=== PATIENT | female | born 1960 | race American Indian/Alaskan Native ===

== ENCOUNTER 2016-12-31 22:27 | Inpatient (IN) | payer OTHER ==
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
[2016-12-31] MEDS ORDERED: NACL ONE (23:17)
[2016-12-31] MEDS ORDERED: BENTYL IM ONE (23:18)
[2016-12-31] MEDS ORDERED: NITROSTAT SL PRN (23:18)
[2017-01-01 00:01] LABS: Anion Gap 22 mmol/L; Basophils % (Auto) 0.3 % (0.0-1.8); Blood Urea Nitrogen 14 mg/dL (7-17); Calcium 9.3 mg/dL (8.4-10.2); Carbon Dioxide 20 mmol/L (22-30); Chloride 101.9 mmol/L (98-107); Eosinophils % (Auto) 1.1 % (0.0-4.3); Glucose 126 mg/dL (65-100); Hematocrit 36.7 % (30.3-42.9); Hemoglobin 11.9 gm/dl (10.1-14.3); Mean Corpuscular HGB Conc 32 % (30-34); Mean Corpuscular Hemoglobin 27 pg (28-32); Mean Corpuscular Volume 85 fl (79-97); Platelet Count 206 K/mm3 (140-440); Potassium 3.7 mmol/L (3.6-5.0); Red Blood Count 4.33 M/mm3 (3.65-5.03); Red Cell Distribution Width 16.1 % (13.2-15.2); Sodium 140 mmol/L (137-145); White Blood Count 7.1 K/mm3 (4.5-11.0)
[2017-01-01 00:10] LABS: INR 0.94 (0.87-1.13)
[2017-01-01] MEDS ORDERED: ZOFRAN IV ONE ×2 (00:10→12:00)
[2017-01-01] MEDS ORDERED: BABY ASPIRIN PO ONE (02:45)
--- NOTE | 2017-01-01 03:32 | Cat Scan Report ---
FINAL REPORT EXAM: CT ABDOMEN PELVIS WO CON HISTORY: abd pain COMPARISON: CT of the abdomen pelvis from March 2014. TECHNIQUE: Contiguous axial images were obtained. Additional sagittal and coronal reformatted images were obtained. FINDINGS: Mild linear atelectasis or scarring at the lung bases. Mild enlargement of the liver measuring 24 centimeters. Mild diffuse fatty infiltration of the liver with sparing along the gallbladder fossa. Gallbladder surgically absent. Pancreas and spleen are grossly unremarkable. Mild nodular thickening of adrenal glands. 4 millimeter nonobstructive right renal calculus. No hydronephrosis bilaterally. Prominent anterior right renal cyst measuring 6 centimeters. Aorta and IVC are normal in caliber. No distal ureteral urinary bladder calculi. Uterus and right ovary grossly unremarkable. Small simple appearing cystic structure in the left ovary measuring 2.7 x 1.6 centimeters. No free fluid or lymphadenopathy in the pelvic cavity. 6 millimeter hyperdense nodule the posterior margin left kidney likely reflecting a hyperdense cyst. Prior anterior abdominal wall hernia repair. There are small multifocal umbilical and periumbilical hernias containing fat only. No gross associated inflammatory soft tissue changes. Moderate stool in the right colon. Large and small bowel loops are normal in caliber. The appendix is normal in caliber. Mild degenerative changes of the lumbar spine. Bony pelvis is grossly intact. IMPRESSION: 4 millimeter nonobstructive right renal calculus. No hydronephrosis bilaterally. Large and small bowel loops normal in caliber. The appendix is normal in caliber. No focal inflammatory changes the bowel. Mild enlargement of the liver with fatty infiltration. Simple appearing cystic structure left ovary measuring 2.7 centimeters. Followup pelvic ultrasound in the next 2-3 months suggested to ensure stability.
[2017-01-01] MEDS ORDERED: FLEXERIL PO PRN (05:20)
[2017-01-01] MEDS ORDERED: ULTRAM PO PRN (05:20)
[2017-01-01] MEDS ORDERED: MORPHINE IV PRN (05:22)
[2017-01-01] MEDS ORDERED: SODIUM CHLORIDE FLUSH SYRINGE 10 ML IV PRN (05:22)
--- NOTE | 2017-01-01 05:29 | History and Physical Report ---
History of Present Illness Date of examination: 01/01/17 Date of admission: 01/01/17 03:50 Chief complaint: Chest pain History of present illness: Patient is a 54-year-old female past medical history of diabetes, asthma, hypertension, chronic tachycardia to the hospital complains of progressive SOB in last 24 hours. Patient reports that her shortness of breath started last night. Got worse today. She describes that she has increased cough, which whitish phlegm production. She denies any fevers, high fevers, myalgias or arthralgias. She did not receive the flu vaccination this year. Denies any melena, hematochezia, bright red blood per rectum. Also no syncope. She does not use oxygen at home. His complains of occasional palpitations, and dyspnea which she's had for months now. She had several negative workups including cardiac angiogram done on August 2015. His had a negative chest CTA done for chest pain and tachycardia, on 10/04/2015. Past History Past Medical History: diabetes, hypertension, asthma, other (chronic tachycardia , 6.2 cm right renal cyst) Past Surgical History: cholecystectomy, PTCA, Other (cardiac angiogram) Social history: single, full code. denies: smoking, alcohol abuse, prescription drug abuse, IV drug use Review of System: Constitutional: no fever, no chills, no weight loss Ears, eyes, nose, mouth and throat: no nasal congestion, no nasal discharge, no sinus pressure, no vision change, no red eye. Neck: No neck pain or rigidity. Cardiovascular: No chest pain, no orthopnea, no palpitations, no leg swelling Respiratory: No shortness of breath, no cough, no congestion, no wheezing Gastrointestinal: no abdominal pain, no nausea, no vomiting Genitourinary : no dysuria, no hematuria Musculoskeletal: no joint swelling or muscle ache Integumentary: no rash, no pruritis Neurological: no parathesias, no numbness, no tingling Endocrine: no cold or heat intolerance, no polyuria or polydipsia Hematologic/Lymphatic: no easy bruising, no easy bleeding, no gland swelling Allergic/Immunologic: no urticaria, no angioedema. Medications and Allergies Allergies Allergy/AdvReac Type Severity Reaction Status Date / Time acetaminophen [From Percocet] Allergy Unknown Verified 03/10/14 09:20 morphine Allergy Unknown Verified 05/19/16 12:06 oxycodone HCl [From Percocet] Allergy Unknown Verified 03/10/14 09:20 Home Medications Medication Instructions Recorded Confirmed Last Taken Type Clonidine HCl [Catapres] 0.3 mg PO BID 08/26/15 05/19/16 05/19/16 History amLODIPine [Norvasc] 10 mg PO DAILY 08/26/15 05/19/16 05/19/16 History metFORMIN [Glucophage] 1,000 mg PO BID 08/26/15 05/19/16 05/19/16 History Albuterol Sulfate [Ventolin HFA] 2 puff IH Q4H PRN #1 pump 11/12/15 05/19/16 Rx Cyclobenzaprine HCl [Flexeril 5 MG 5 mg PO Q8HR PRN #10 tab 05/19/16 Unknown Rx TAB] traMADol [Ultram] 50 mg PO Q6HR PRN #20 tablet 07/22/16 Unknown Rx Active Meds: Active Medications Amlodipine Besylate (Norvasc) 10 mg PO DAILY JOSE CRUZ Aspirin (Ecotrin) 325 mg PO QDAY JOSE CRUZ Atorvastatin Calcium (Lipitor) 40 mg PO QHS JOSE CRUZ Famotidine (Pepcid) 20 mg PO BID JOSE CRUZ Insulin Human Regular (Novolin R) 0 units SUB-Q ACHS JOSE CRUZ PRN Reason: Protocol Metformin HCl (Glucophage) 1,000 mg PO BID JOSE CRUZ Miscellaneous Medication (Clonidine Hcl [Catapres]) 0.3 mg PO BID JOSE CRUZ Miscellaneous Medication (Cyclobenzaprine Hcl [Flexeril 5 Mg Tab]) 5 mg PO Q8HR PRN PRN Reason: Pain Morphine Sulfate (Morphine) 2 mg IV Q5MIN PRN PRN Reason: Chest Pain Nitroglycerin (Nitrostat) 0.4 mg SL .Q5MIN PRN PRN Reason: Chest Pain Sodium Chloride (Sodium Chloride Flush Syringe 10 Ml) 10 ml IV PRN PRN PRN Reason: LINE FLUSH Tramadol HCl (Ultram) 50 mg PO Q6HR PRN PRN Reason: Pain Exam - Physical Exam Narrative exam: GENERAL: This is well-developed well-nourished lying on bed appeared to be in no discomfort. HEENT: Normocephalic. Atraumatic. Extraocular motions are intact. No conjunctival congestion or icterus. Patient has moist mucous membranes. External auditory canal and nares patent bilaterally. NECK: Supple. Trachea midline. No JVD, thyromagaly or lymphadenopathy. CHEST/LUNGS: Clear to auscultated bilaterally. There is no respiratory distress noted, breathing nonlabored. No wheezes crackles or rhonchi. HEART/CARDIOVASCULAR: Regular in rate and rhythm. PMI at the apex. There is no gallop rub or murmur. ABDOMEN: Abdomen is soft, nontender. Patient has normal bowel sounds. There is no abdominal distention. No organomagaly or rigidity. SKIN: There is no rash, no erythrema. There is no diaphoresis. Warm and dry. NEUROLOGY: The patient is awake, alert, and oriented. The patient is cooperative. The patient has normal speech. No focal motor deficit. MUSCULOSKELETAL: No joint effusion or tenderness. Muscle strength equal bilaterally. No muscle wasting. EXTRIMITY: No edema, cyanosis or clubbing. PSYCH: No depression or anxiety noted. Cooperative. - Constitutional Vitals: Temp Pulse Resp BP Pulse Ox 98.5 F 76 21 156/81 95 01/01/17 05:01 01/01/17 05:01 01/01/17 05:01 01/01/17 05:01 01/01/17 05:01 Results - Labs CBC & Chem 7: 12/31/16 23:30 12/31/16 23:30 Assessment and Plan Acute chest pain Acute abdominal pain likely due to nonobstructing nephrolithiasis Hypertension, benign essential Diabetes mellitus type 2 Asthma not in exacerbation - will admit to telemetry bed - monitor with serial CE and EKG - will place on Aspirin, statin - as needed SL NTG and iv morphin for pain - Monitor BP, add betablocker and ACEI - order 2D echo and consult cardiology - ADA diet now, sliding scale of insulin - As needed nebulizer breathing treatment - provide DVT Px with lovenox It took me about 43 minutes for initial care of this patient including history and physical, reviewing initial lab results and ER documents, placing admission orders, bedside counseling and coordination of care.
[2017-01-01 07:36] LABS: Creatine Kinase MB 1.7 ng/mL (0.0-4.0)
[2017-01-01 07:39] LABS: Creatine Kinase 120 units/L (30-135)
--- NOTE | 2017-01-01 08:08 | Admit Criteria Form ---
Admission Criteria Documentation: CARDIOLOGY GRG Clinical Indications for Admission to Inpatient Care ( Place 'X' for any and all applicable criteria): Hospital admission is needed for appropriate care of the patient because of ANY ONE of the following (1): [ ] I. Hemodynamic instability as indicated by ALL of the following (1)(2)(3) (4)(5) [ ]a) Vital signs or other findings not as expected for chronic patient condition or baseline [ ]b) Instability indicated by ANY ONE of the following: [ ]i) Hypotension [ ]ii) Symptomatic Tachycardia unresponsive to treatment ( e.g., analgesia, fluids, sedation as indicated) [ ]iii) Inadequate perfusion indicated by ANY ONE of the following: [ ] 1) Lactic acidosis (> 2 mmol/L) [ ] 2) New abnormal capillary refill (> 3 seconds) [ ] 3) Reduced urine output [ ] 4) New altered mental status [ ]iv) Orthostatic vital sign changes unresponsive to treatment (e.g., fluids) [ ]v) IV inotropic or vasopressor medication required to maintain adequate blood pressure or perfusion [ ] II. Severe heart failure as indicated by ANY ONE of the following(17)(18) [ ]a) Respiratory distress [ ]b) Hypotension [ ]c) Anasarca (refractory to outpatient therapy) [ ]d) Cardiac arrhythmias of immediate concern [ ]e) Myocardial ischemia [ ] III. Cardiac arrhythmias or findings of immediate concern indicated by ANY ONE of the following (19)(20): [ ] a) Heart rhythms that are inherently dangerous or unstable indicated by ANY ONE of the following (21)(22)(23): [ ] i) Resuscitated ventricular fibrillation or cardiac arrest [ ] ii) Ventricular escape rhythm [ ] iii) Sustained ventricular tachycardia (30 seconds or more of ventricular rhythm at greater than 100 beats per minute) [ ] iv) Nonsustained ventricular tachycardia and ANY ONE of the following: [ ] 1) Suspected cardiac ischemia as cause or consequence of ventricular tachycardia [ ] 2) In setting of acute myocarditis [ ] b) Unstable cardiac conduction defects indicated by ANY ONE of the following(23)(24)(25) [ ] i) Type II second-degree atrioventricular block [ ]ii) Third-degree atrioventricular block [ ]iii) New-onset left bundle branch block with suspected myocardial ischemia [ ]c) Any heart rhythm and ANY ONE of the following (21)(22)(26)(27) (28) [ ] i) Continuous long-term ECG monitoring needed (e.g., initiation of drug requiring monitoring for more than 24 hours) [ ] ii) Patient has automatic implanted cardioverter defibrillator that is repeatedly firing, malfunctioning, or in need of immediate adjustment of settings beyond the scope of ambulatory or observation care [ ]d) Heart rhythms of concern due to ANY ONE of the following: [ ] i) Hypotension [ ] ii) Respiratory distress [ ] iii) Association with other significant symptoms (e.g., bradycardia with syncope or ongoing dizziness, supraventricular tachycardia with chest pain (14)(15)(17) [ ] IV. Monitoring for cardiac contusion beyond the scope of observation care needed [A](30)(31)(32) [ ] V. Surgical or device complication (e.g., valve replacement complication , pacemaker dysfunction) (35)(41)(44)(45)(46) [ ] . Inpatient palliative care needed. [B](49) Also use Inpatient Palliative Care Criteria [ ] VII. Nonbacterial thrombotic (marantic) endocarditis (36)(43)(47)(48) [X] VIII. Cardiology condition, symptom, or finding for which emergency and observation care has failed or are not considered appropriate. [ ] IX. Acute valvular disease requiring inpatient as indicated by ANY ONE of the following (41) [ ]a) Acute valvular regurgitation (42) [ ]b) Noninfectious valvulitis (43) [ ]c) Obstructive valve thrombosis [ ]d) Paravalvular leak [ ]e) Other significant valvular disorder remaining after emergency or observation level of care (as appropriate) [ ]X. Pericardial disease requiring inpatient treatment as indicated by ANY ONE of the following (33)(34)(35)(36)(37) [ ]a) Suspected tamponade (38)(39)(40) [ ]b) Hemopericardium [ ]c) Other significant pericardial disorder remaining after emergency or observation level of care (as appropriate) [ ] XI. Cardiac ischemia beyond scope of emergency and observation care. [ ] XII. Hypertension requiring inpatient treatment as indicated by ANY ONE of the following (6)(7)(8) [ ]a) SBP greater than 220 mm Hg or DBP greater than 120 mmHg despite treatment [ ]b) SBP greater than 140 mm Hg or DBP greater than 100 mm Hg with evidence of acute end organ damage as indicated by ANY ONE of the following [ ] i) Altered mental status [ ] ii) Acute renal failure as indicated by new onset of ANY ONE of the following (9)(10)(11)(12)(13) [ ]1) 3-fold rise in serum creatinine from baseline [ ]2) Serum creatinine greater than 4 mg/dL ( 354 micromoles/L) with acute rise greater than 0.5 mg/dL (44.2 micromoles/L) [ ]3) Reduction of more than 75% in estimated glomerular filtration rate from baseline [ ]4) Estimated glomerular filtration rate less than 35 mL/min/1.73m2 (0.59 mL/sec/1.73m2) in child up to 18 years of age [ ]5) Cessation of urine output indicated by ALL of the following [ ]A. Adequate volume status [ ]B. Inadequate urine output as indicated by ANY ONE of the following [ ]a. Urine output less than 0.3 mL/kg/hr for 24 hours [ ]b. Anuria (urine output less than 0.1 mL/kg/hr) for 12 hours [ ] iii) Aortic dissection [ ] iv) Myocardial Ischemia [ ] v) Left ventricular heart failure [ ]vi) Retinal Hemorrhage [ ]vii) Other significant finding [ ]c) Hypertension in child requiring inpatient treatment as indicated by ALL of the following(14)(15)(16) [ ] i) Outpatient treatment not effective, not available, or not appropriate [ ]ii) SBP or DBP greater than 95th percentile for age [ ]iii) Evidence of acute end organ damage as indicated by ANY ONE of the following [ ]1) Altered mental status [ ]2) Acute renal failure as indicated by new onset of ANY ONE of the following(9)(10)(11)(12)(13) [ ]A. 3-fold rise in serum creatinine from baseline [ ]B. Serum creatinine greater than 4 mg/dL (354 micromoles/L) with acute rise greater than 0.5 mg/dL (44.2 micromoles/L) [ ]C. Reduction of more than 75% in estimated glomerular filtration rate from baseline [ ]D. Estimated glomerular filtration rate less than 35 mL/min/1.73m2 (0.59 mL/sec/1.73m2) in child up to 18 years of age [ ]E. Cessation of urine output indicated by ALL of the following [ ]a. Adequate volume status [ ]b. Inadequate urine output as indicated by ANY ONE of the following [ ]i) Urine output less than 0.3 mL/kg/hr for 24 hours [ ]ii) Anuria ( urine output less than 0.1 mL/kg/hr) for 12 hours [ ]3) Severe headache [ ]4) Visual disturbance [ ]5) Retinal hemorrhage [ ]6) Other significant finding [ ]XIII. Complications of transplanted heart indicated by ANY ONE of the following(61): [ ]a) Acute graft rejection requiring inpatient management (eg, intravenous immunosuppression)(62)(63) [ ]b) Acute graft heart failure indicated by ANY ONE of the following(64): [ ]i) Hemodynamic instability [ ]ii) Cardiac arrhythmias of immediate concern [ ]iii) Pulmonary edema that is very severe (eg, mechanical ventilation needed, imminent or likely, need for 100% oxygen to keep oxygen saturation above 90%) [ ]iv) Pulmonary edema that is persistent as indicated by ALL of the following: [ ]1) New need for oxygen therapy to keep oxygen saturation above 90% (or increased FiO2 need from baseline) [ ]2) Has not improved sufficiently with emergency department or observation care IV diuretics or other heart failure treatments[E] [ ]v) Altered mental status that is severe or persistent [ ]vi) Increased creatinine (new on laboratory test) with reduction of more than 50% in estimated glomerular filtration rate from baseline [ ]vii) Progressively (ongoing) rising creatinine (known from past laboratory test) with reduction of more than 25% in estimated glomerular filtration rate from baseline [ ]viii) Acute renal failure [ ]ix) Acute peripheral ischemia (eg, examination shows pulseless, cool, mottled, or cyanotic extremity) [ ]x) Pulmonary artery catheter monitoring needed [ ]xi) Other sign or symptom of heart failure requiring inpatient treatment (ie, too severe or not responsive to outpatient and observation care treatment) [ ]c) Infection requiring inpatient management (eg, Hemodynamic instability, need for intravenous antimicrobial treatment)(66)(67)(68)(69)(70) [ ]d) Cardiac allograft vasculopathy requiring inpatient management ( eg evidence of cardiac ischemia)(71) [ ]e) Other complication of transplanted heart (eg, stroke, severe pulmonary hypertension, severe valvular dysfunction) requiring inpatient management(72) The original [facility] [employer] content created by [facility] has been revised. The portions of the content which have been revised are identified through the use of italic text or in bold, and [facility] has neither reviewed nor approved the modified material. All other unmodified content is copyright [facility] [employer]. Please see references footnoted in the original [facility] [employer] edition 2016 Admission Criteria Met: Yes
--- NOTE | 2017-01-01 08:21 | Progress Note ---
Assessment and Plan Assessment and plan: Patient is a 54-year-old female past medical history of diabetes, asthma, hypertension, chronic tachycardia to the hospital complains of progressive SOB Acute chest pain Kidney stone is nonobstructing nephrolithiasis, and therefore not the cause of her pain Hypertension, benign essential Diabetes mellitus type 2 Asthma not in exacerbation - will admit to telemetry bed - monitor with serial CE and EKG - will place on Aspirin, statin - as needed SL NTG and iv morphin for pain - Monitor BP, add betablocker and ACEI - order 2D echo and consult cardiology - ADA diet now, sliding scale of insulin - As needed nebulizer breathing treatment - provide DVT Px with [facility] Hospitalist Physical - Constitutional Vitals: Temp Pulse Resp BP Pulse Ox 98.5 F 90 18 156/81 98 01/01/17 05:01 01/01/17 06:01 01/01/17 06:58 01/01/17 05:01 01/01/17 06:01 Results - Labs CBC & Chem 7: 12/31/16 23:30 12/31/16 23:30 Labs: Laboratory Last Values WBC 7.1 K/mm3 (4.5-11.0) 12/31/16 23:30 RBC 4.33 M/mm3 (3.65-5.03) 12/31/16 23:30 Hgb 11.9 gm/dl (10.1-14.3) 12/31/16 23:30 Hct 36.7 % (30.3-42.9) 12/31/16 23:30 MCV 85 fl (79-97) 12/31/16 23:30 MCH 27 pg (28-32) L 12/31/16 23:30 MCHC 32 % (30-34) 12/31/16 23:30 RDW 16.1 % (13.2-15.2) H 12/31/16 23:30 Plt Count 206 K/mm3 (140-440) 12/31/16 23:30 Lymph % (Auto) 25.7 % (13.4-35.0) 12/31/16 23:30 [place] % (Auto) 5.7 % (0.0-7.3) 12/31/16 23:30 Eos % (Auto) 1.1 % (0.0-4.3) 12/31/16 23:30 Baso % (Auto) 0.3 % (0.0-1.8) 12/31/16 23:30 Lymph # 1.8 K/mm3 (1.2-5.4) 12/31/16 23:30 [place] # 0.4 K/mm3 (0.0-0.8) 12/31/16 23:30 Eos # 0.1 K/mm3 (0.0-0.4) 12/31/16 23:30 Baso # 0.0 K/mm3 (0.0-0.1) 12/31/16 23:30 Seg Neutrophils % 67.2 % (40.0-70.0) 12/31/16 23:30 Seg Neutrophils # 4.8 K/mm3 (1.8-7.7) 12/31/16 23:30 PT 12.5 Sec. (12.2-14.9) 12/31/16 23:30 INR 0.94 (0.87-1.13) 12/31/16 23:30 D-Dimer 152.15 ng/mlDDU (0-234) 12/31/16 23:30 Sodium 140 mmol/L (137-145) 12/31/16 23:30 Potassium 3.7 mmol/L (3.6-5.0) 12/31/16 23:30 Chloride 101.9 mmol/L (98-107) 12/31/16 23:30 Carbon Dioxide 20 mmol/L (22-30) L 12/31/16 23:30 Anion Gap 22 mmol/L 12/31/16 23:30 BUN 14 mg/dL (7-17) 12/31/16 23:30 Creatinine 0.7 mg/dL (0.7-1.2) 12/31/16 23:30 Estimated GFR > 60 ml/min 12/31/16 23:30 BUN/Creatinine Ratio 20.00 % 12/31/16 23:30 Glucose 126 mg/dL (65-100) H 12/31/16 23:30 Calcium 9.3 mg/dL (8.4-10.2) 12/31/16 23:30 Total Creatine Kinase 120 units/L (30-135) 01/01/17 06:49 CK-MB (CK-2) 1.7 ng/mL (0.0-4.0) 01/01/17 06:49 CK-MB (CK-2) Rel Index 1.4 (0-4) 01/01/17 06:49 Troponin T < 0.010 ng/mL (0.00-0.029) 01/01/17 06:49 NT-Pro-B Natriuret Pep 87.38 pg/mL (0-900) 12/31/16 23:30
--- NOTE | 2017-01-01 08:21 | XRay Report ---
CHEST 2 VIEWS INDICATION: Chest since Wednesday. Dyspnea. History of CHF. COMPARISON: 07/22/2016 FINDINGS: Frontal and lateral chest radiographs demonstrate stable cardiomediastinal silhouette, clear lungs, right mid lung shrapnels, EKG leads and multilevel thoracic spondylosis. CONCLUSION: No acute chest process, stable. Thank you for the opportunity to participate in this patient's care.
--- NOTE | 2017-01-01 09:49 | Discharge Summary ---
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 ACS was ruled out by negative troponins, transfer have a nuclear stress test that was negative. There was concern of kidney stone, but after reviewing her imaging was a nonobstructive small nephrolithiasis and different not related to her pain. Chest pain was most likely due to costochondritis, she was advised to take daily aspirin and NSAID as needed. Discharge diagnoses Chest pain due to costochondritis Hypertension Type 2 diabetes Chronic asthma Disposition: DISCHARGED TO HOME OR SELFCARE Time spent for discharge: 35 minutes Core Measure Documentation - Palliative Care Palliative Care/ Comfort Measures: Not Applicable - Core Measures Any of the following diagnoses?: none Exam - Constitutional Vitals: Temp Pulse Resp BP Pulse Ox 98.3 F 81 18 180/91 98 01/01/17 08:00 01/01/17 08:00 01/01/17 08:00 01/01/17 08:00 01/01/17 08:00 General appearance: Present: no acute distress, well-nourished - EENT Eyes: Present: PERRL ENT: hearing intact, clear oral mucosa - Neck Neck: Present: supple, normal ROM - Respiratory Respiratory effort: normal Respiratory: bilateral: CTA - Cardiovascular Heart Sounds: Present: S1 & S2. Absent: rub, click - Extremities Extremities: pulses symmetrical, No edema Peripheral Pulses: within normal limits - Abdominal General gastrointestinal: Present: soft, non-tender, non-distended, normal bowel sounds Female genitourinary: Present: normal - Integumentary Integumentary: Present: clear, warm, dry - Musculoskeletal Musculoskeletal: gait normal, strength equal bilaterally - Psychiatric Psychiatric: appropriate mood/affect, intact judgment & insight - Neurologic Neurologic: CNII-XII intact, moves all extremities Plan Follow up with: [facility] [Provider Group] - 7 Days PRIMARY CARE, [Primary Care Provider] - 3-5 Days Prescriptions: Aspirin EC [Aspirin Enteric Coated TAB] 81 mg PO QDAY #30 tablet.
[2017-01-01] MEDS ORDERED: PEPCID PO SCH (10:00)
[2017-01-01] MEDS ORDERED: CATAPRES PO SCH ×2 (10:00)
[2017-01-01] MEDS ORDERED: GLUCOPHAGE PO SCH (10:00)
[2017-01-01] MEDS ORDERED: NORVASC PO SCH (10:00)
[2017-01-01] MEDS: DUONEB 0.5 MG-3 MG/3 ML SOLN IH SCH ×2 (10:35→15:30)
[2017-01-01] MEDS ORDERED: LEXISCAN IV ONE ×2 (11:00→11:01)
[2017-01-01] MEDS ORDERED: ZOFRAN ONE (11:34)
[2017-01-01 14:18] LABS: Creatine Kinase MB 1.7 ng/mL (0.0-4.0)
[2017-01-01 14:20] LABS: Creatine Kinase 131 units/L (30-135)
[2017-01-01 15:55] VITALS: BP 148/84
--- NOTE | 2017-01-02 01:22 | Treadmill Report ---
STRESS TEST INDICATION: Chest pain. ORDERING PHYSICIAN: . FINDINGS: There is no scintigraphic evidence of myocardial ischemia. The left ventricle is normal in size and systolic function with a left ventricular ejection fraction measured at 69%. Normal wall motion and wall thickening is noted on gated imaging. CONCLUSION: Normal perfusion scan. JOB# [id number] FRANKIE/MOSES
[2017-01-02] MEDS ORDERED: ECOTRIN PO SCH (10:00)
== END 2017-01-01 16:29 | disposition home or self-care (01) | DRG 206 ==
LOC: ED 22:27 → 4A 01-01 03:50
PROVIDERS: ADMIT Internal Medicine; ATTEND Internal Medicine
DX: M94.0 Chondrocostal junction syndrome [Tietze] (principal); E11.9 Type 2 diabetes mellitus without complications; Z88.6 Allergy status to analgesic agent; Z88.5 Allergy status to narcotic agent; I11.0 Hypertensive heart disease with heart failure; I50.9 Heart failure, unspecified; K21.9 Gastro-esophageal reflux disease without esophagitis; J44.9 Chronic obstructive pulmonary disease, unspecified; Z90.49 Acquired absence of other specified parts of digestive tract; Z98.61 Coronary angioplasty status; N20.0 Calculus of kidney
CPT/HCPCS: 36415; 71020; 74176; 78452; 80048; 82550; 82553; 82962; 83880; 84484; 85025; 85379; 85610; 93005; 93010; 93017; 93306; 96372; 96374; A9502; J0500; J2405; J2785

== ENCOUNTER 2017-03-14 22:33 | Emergency (ER) | payer OTHER ==
[2017-03-15 00:11] LABS: Basophils % (Auto) 0.5 % (0.0-1.8); Eosinophils % (Auto) 1.6 % (0.0-4.3); Mean Corpuscular HGB Conc 32 % (30-34); Mean Corpuscular Hemoglobin 27 pg (28-32); Mean Corpuscular Volume 85 fl (79-97); Platelet Count 262 K/mm3 (140-440); Red Blood Count 4.81 M/mm3 (3.65-5.03); Red Cell Distribution Width 15.7 % (13.2-15.2); White Blood Count 6.4 K/mm3 (4.5-11.0)
[2017-03-15 00:24] LABS: Anion Gap 18 mmol/L; BUN/Creatinine Ratio 21.25; Blood Urea Nitrogen 17 mg/dL (7-17); Calcium 9.8 mg/dL (8.4-10.2); Carbon Dioxide 27 mmol/L (22-30); Chloride 97.4 mmol/L (98-107); Glucose 117 mg/dL (65-100); Potassium 3.2 mmol/L (3.6-5.0); Sodium 139 mmol/L (137-145)
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
--- NOTE | 2017-03-15 10:20 | Emergency Department Report ---
ED Chest Pain HPI - General Chief Complaint: Chest Pain Stated Complaint: CHEST PAIN Time Seen by Provider: 03/15/17 10:08 Source: patient Mode of arrival: Ambulatory Limitations: No Limitations - History of Present Illness Initial Comments: 56-year-old female with known history of CHF here with complaint of worsening chest pain and shortness of breath. Patient states that she's having increasing dyspnea with exertion. Her chest pain is in the center of her chest feels heavy and she gets short of breath with it. It's worse with exertion. She has difficult time laying down. No fevers chills nausea vomiting. MD Complaint: chest pain -: Gradual Onset: during rest, during exertion Pain Location: substernal Pain Radiation: neck Severity: moderate Quality: tightness Improves With: rest Worsens With: exertion re: dyspnea. denies: nausea, vomting - Related Data Home Medications Medication Instructions Recorded Confirmed Last Taken Clonidine HCl [Catapres] 0.3 mg PO BID 08/26/15 05/19/16 05/19/16 amLODIPine [Norvasc] 10 mg PO DAILY 08/26/15 05/19/16 05/19/16 metFORMIN [Glucophage] 1,000 mg PO BID 08/26/15 05/19/16 05/19/16 Previous Rx's Medication Instructions Recorded Last Taken Type Albuterol Sulfate [Ventolin HFA] 2 puff IH Q4H PRN #1 pump 11/12/15 05/19/16 Rx Cyclobenzaprine HCl [Flexeril 5 MG 5 mg PO Q8HR PRN #10 tab 05/19/16 Unknown Rx TAB] traMADol [Ultram 50 MG tab] 50 mg PO Q6HR PRN #20 tablet 07/22/16 Unknown Rx Aspirin EC [Aspirin Enteric Coated 81 mg PO QDAY #30 tablet. 01/01/17 Unknown Rx TAB] Allergies Allergy/AdvReac Type Severity Reaction Status Date / Time acetaminophen [From Percocet] Allergy Unknown Verified 03/10/14 09:20 morphine Allergy Unknown Verified 05/19/16 12:06 oxycodone HCl [From Percocet] Allergy Unknown Verified 03/10/14 09:20 Heart Score - HEART Score History: Moderately suspicious EKG: Non-specific Age: 45-65 Risk factors: 1-2 risk factors Troponin: < normal limit HEART Score: 4 ED Review of Systems ROS: Stated complaint: CHEST PAIN Other details as noted in HPI Comment: All other systems reviewed and negative Constitutional: denies: chills, fever Eyes: denies: eye pain, eye discharge, vision change ENT: denies: ear pain, throat pain Respiratory: orthopnea, shortness of breath, SOB with exertion, SOB at rest. denies: wheezing Cardiovascular: denies: chest pain, palpitations Endocrine: no symptoms reported Gastrointestinal: denies: abdominal pain, nausea, diarrhea Genitourinary: denies: urgency, dysuria, discharge Musculoskeletal: denies: back pain, joint swelling, arthralgia Skin: denies: rash, lesions Neurological: denies: headache, weakness, paresthesias Psychiatric: denies: anxiety, depression Hematological/Lymphatic: denies: easy bleeding, easy bruising ED Past Medical Hx - Past Medical History Previous Medical History?: Yes Hx Hypertension: Yes Hx Heart Attack/AMI: No Hx Congestive Heart Failure: Yes Hx Diabetes: Yes Hx GERD: Yes Hx Liver Disease: No Hx Renal Disease: No Hx Seizures: No Hx Asthma: Yes Hx COPD: Yes (chronic bronchitis) Additional medical history: BLOOD TRANSFUSION. enlarged heart. "spot on right kidney" - Surgical History Past Surgical History?: Yes Hx Cholecystectomy: Yes Additional Surgical History: C section x 3, hernia repair - Family History Family history: no significant - Social History Smoking Status: Never Smoker Substance Use Type: None - Medications Home Medications: Home Medications Medication Instructions Recorded Confirmed Last Taken Type Clonidine HCl [Catapres] 0.3 mg PO BID 08/26/15 05/19/16 05/19/16 History amLODIPine [Norvasc] 10 mg PO DAILY 08/26/15 05/19/16 05/19/16 History metFORMIN [Glucophage] 1,000 mg PO BID 08/26/15 05/19/16 05/19/16 History Albuterol Sulfate [Ventolin HFA] 2 puff IH Q4H PRN #1 pump 11/12/15 05/19/16 Rx Cyclobenzaprine HCl [Flexeril 5 MG 5 mg PO Q8HR PRN #10 tab 05/19/16 Unknown Rx TAB] traMADol [Ultram 50 MG tab] 50 mg PO Q6HR PRN #20 tablet 07/22/16 Unknown Rx Aspirin EC [Aspirin Enteric Coated 81 mg PO QDAY #30 tablet. 01/01/17 Unknown Rx TAB] ED Physical Exam - General Limitations: No Limitations General appearance: alert, in no apparent distress, obese - Head Head exam: Present: atraumatic, normocephalic - Eye Eye exam: Present: normal appearance. Absent: scleral icterus, conjunctival injection - ENT ENT exam: Present: mucous membranes moist - Neck Neck exam: Present: normal inspection - Respiratory Respiratory exam: Present: normal lung sounds bilaterally. Absent: respiratory distress - Cardiovascular Cardiovascular Exam: Present: regular rate, normal rhythm. Absent: systolic murmur, diastolic murmur, rubs, gallop - GI/Abdominal GI/Abdominal exam: Present: soft, normal bowel sounds - Extremities Exam Extremities exam: Present: normal inspection - Back Exam Back exam: Present: normal inspection - Neurological Exam Neurological exam: Present: alert, oriented X3 - Psychiatric Psychiatric exam: Present: normal affect, normal mood - Skin Skin exam: Present: warm, dry, intact, normal color. Absent: rash ED Course Vital Signs 03/14/17 23:14 Temperature 98.6 F Pulse Rate 101 H Blood Pressure 153/94 O2 Sat by Pulse 99 Oximetry BRENNAN score - Brennan Score Age > 65: (0) No Aspirin use within the Past 7 Days: (0) No 3 or more CAD Risk Factors: (1) Yes (was only one of them might be reviewed and do another one but) 2 or more Angina events in past 24 hrs: (0) No (at the site psych who psych) Known CAD with more than 50% Stenosis: (0) No Elevated Cardiac Markers: (0) No ST Deviation Greater than 0.5mm: (0) No BRENNAN Score: 1 ED Medical Decision Making - Lab Data Result diagrams: 03/14/17 23:45 03/14/17 23:45 Laboratory Results - last 24 hr 03/14/17 03/14/17 03/14/17 23:45 23:45 23:45 WBC 6.4 RBC 4.81 Hgb 13.0 Hct 41.0 MCV 85 MCH 27 L MCHC 32 RDW 15.7 H Plt Count 262 Lymph % (Auto) 31.3 [place] % (Auto) 6.8 Eos % (Auto) 1.6 Baso % (Auto) 0.5 Lymph # 2.0 [place] # 0.4 Eos # 0.1 Baso # 0.0 Seg Neutrophils % 59.8 Seg Neutrophils # 3.8 Sodium 139 Potassium 3.2 L Chloride 97.4 L Carbon Dioxide 27 Anion Gap 18 BUN 17 Creatinine 0.8 Estimated GFR > 60 BUN/Creatinine Ratio 21.25 Glucose 117 H Calcium 9.8 Troponin T < 0.010 NT-Pro-B Natriuret Pep 38.13 Urine HCG, Qual 03/14/17 03/15/17 03/15/17 Unknown 02:06 05:51 WBC RBC Hgb Hct MCV MCH MCHC RDW Plt Count Lymph % (Auto) [place] % (Auto) Eos % (Auto) Baso % (Auto) Lymph # [place] # Eos # Baso # Seg Neutrophils % Seg Neutrophils # Sodium Potassium Chloride Carbon Dioxide Anion Gap BUN Creatinine Estimated GFR BUN/Creatinine Ratio Glucose Calcium Troponin T < 0.010 < 0.010 NT-Pro-B Natriuret Pep Urine HCG, Qual Negative - EKG Data 03/15/17 10:18 Normal sinus rhythm rate of 90 normal axis normal intervals T-wave inversion in lead 3 and V3 V4 t wave flattening - Medical Decision Making 56-year-old female here with exertional chest pain. States she has a known history of CHF. She describes orthopnea on clinical history. Her clinical exam physical with mild peripheral edema but clear lungs. EKG is nonischemic and nonspecific. BNP is low however she is obese at this may be falsely low. I do not feel she is clinically volume overloaded. Troponin negative. Patient had a normal exercise perfusion scan in December 2016. These findings despite the fact that she is moderate risk of heart scores do not feel she needs to be readmitted for further cardiac evaluation. Plan discharge patient home. Portions of this chart were dictated with dictation software. There may be dictation errors contained within this note. Critical care attestation.: If time is entered above; I have spent that time in minutes in the direct care of this critically ill patient, excluding procedure time. ED Disposition Clinical Impression: Chest pain Disposition: -01 TO HOME OR SELFCARE Is pt being admited?: No Condition: Stable Instructions: Chest Pain (ED) Referrals: PRIMARY CARE, [Primary Care Provider] - 3-5 Days
[2017-03-15] MEDS ORDERED: ASPIRIN PO ONE (11:10)
[2017-03-15] MEDS ORDERED: ZOFRAN ODT ONE (11:11)
[2017-03-15] MEDS ORDERED: ZOFRAN ODT PO ONE (11:23)
[2017-03-15 11:47] VITALS: BP 135/86
== END 2017-03-15 11:40 | disposition home or self-care (01) ==
LOC: ED 22:33
DX: R07.9 Chest pain, unspecified (principal); R06.02 Shortness of breath; I11.0 Hypertensive heart disease with heart failure; I50.9 Heart failure, unspecified; E11.9 Type 2 diabetes mellitus without complications; K21.9 Gastro-esophageal reflux disease without esophagitis; J44.9 Chronic obstructive pulmonary disease, unspecified; Z88.6 Allergy status to analgesic agent; Z88.8 Allergy status to other drugs, medicaments and biological substances; Z79.82 Long term (current) use of aspirin
CPT/HCPCS: 36415; 71020; 80048; 81025; 83880; 84484; 85025; 93005; 93010; 99285; Q0162

== ENCOUNTER 2017-05-07 14:57 | Emergency (ER) | payer SELFPAY ==
[2017-05-07 16:10] LABS: Basophils % (Auto) 0.4 % (0.0-1.8); Eosinophils % (Auto) 1.7 % (0.0-4.3); Hematocrit 38.6 % (30.3-42.9); Hemoglobin 12.9 gm/dl (10.1-14.3); Mean Corpuscular HGB Conc 33 % (30-34); Mean Corpuscular Hemoglobin 28 pg (28-32); Mean Corpuscular Volume 85 fl (79-97); Platelet Count 205 K/mm3 (140-440); Red Blood Count 4.55 M/mm3 (3.65-5.03); Red Cell Distribution Width 15.7 % (13.2-15.2); White Blood Count 5.6 K/mm3 (4.5-11.0)
--- NOTE | 2017-05-07 16:15 | XRay Report ---
Single view chest: Compared to 03/14/17. History: Chest pain. Findings: Normal cardiomediastinal silhouette. Trachea is midline. No consolidation, pneumothorax or pleural effusion. No significant interval change. Impression: No acute cardiopulmonary findings.
[2017-05-07 16:18] LABS: Anion Gap 19 mmol/L; BUN/Creatinine Ratio 16; Blood Urea Nitrogen 16 mg/dL (7-17); Calcium 9.5 mg/dL (8.4-10.2); Carbon Dioxide 25 mmol/L (22-30); Chloride 99.5 mmol/L (98-107); Glucose 101 mg/dL (65-100); Potassium 3.4 mmol/L (3.6-5.0); Sodium 140 mmol/L (137-145)
[2017-05-08 06:17] VITALS: BP 113/63
== END 2017-05-07 21:08 | disposition left against medical advice (07) ==
LOC: ED 14:57
DX: M54.2 Cervicalgia (principal); Z53.21 Procedure and treatment not carried out due to patient leaving prior to being seen by health care provider
CPT/HCPCS: 36415; 71020; 80048; 84484; 85025; 93005; 93010

== ENCOUNTER 2017-05-25 15:21 | Emergency (ER) | payer SELFPAY ==
[2017-05-25] MEDS ORDERED: BABY ASPIRIN PO ONE (15:39)
--- NOTE | 2017-05-25 15:39 | Emergency Department Report ---
Stated Complaint: CHEST PAIN Time Seen by Provider: 05/25/17 15:35 - HPI History of Present Illness: patient is a 56 y/o female with h/o CHF who presents due to chest pain x 2 weeks. Patient states that the chest pain worsened yesterday over night. Patient admits of having nausea but denies any vomiting. - ROS Review of Systems: chest pain and SOB, orthopnea. - Exam Vital Signs: Vital Signs 05/25/17 15:32 Temperature 99.1 F Pulse Rate 124 H Respiratory 18 Rate Blood Pressure 172/97 O2 Sat by Pulse 99 Oximetry Physical Exam: patient had clear bilateral lung sounds with good airway exchange. regular HR and rhythm. MSE screening note: Focused history and physical exam performed. Due to findings the following was ordered:CARDIAC PACK EKG sinus tachycardia, no STEMI ED Disposition for MSE Condition: Stable
[2017-05-25 16:14] LABS: Basophils % (Auto) 0.5 % (0.0-1.8); Eosinophils % (Auto) 0.8 % (0.0-4.3); Hemoglobin 13.6 gm/dl (10.1-14.3); Mean Corpuscular HGB Conc 34 % (30-34); Mean Corpuscular Hemoglobin 29 pg (28-32); Mean Corpuscular Volume 85 fl (79-97); Platelet Count 230 K/mm3 (140-440); Red Blood Count 4.73 M/mm3 (3.65-5.03); Red Cell Distribution Width 15.4 % (13.2-15.2); White Blood Count 6.5 K/mm3 (4.5-11.0)
[2017-05-25 16:24] LABS: INR 0.92 (0.87-1.13); Partial Thromboplastin Time 28.2 Sec. (24.2-36.6)
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
[2017-05-25 16:39] LABS: Alanine Aminotransferase 12 units/L (7-56); Albumin 4.3 g/dL (3.9-5); Albumin/Globulin Ratio 0.9 %; Alkaline Phosphatase 88 units/L (35-129); Anion Gap 21 mmol/L; BUN/Creatinine Ratio 31; Blood Urea Nitrogen 25 mg/dL (7-17); Calcium 9.8 mg/dL (8.4-10.2); Carbon Dioxide 24 mmol/L (22-30); Chloride 99.6 mmol/L (98-107); Glucose 152 mg/dL (65-100); Lipase 34 units/L (13-60); Potassium 3.7 mmol/L (3.6-5.0); Sodium 141 mmol/L (137-145); Total Protein 8.9 g/dL (6.3-8.2)
[2017-05-25] MEDS ORDERED: ASPIRIN ONE (20:46)
[2017-05-25] MEDS ORDERED: DUONEB *Not for PRN Use IH ONE (20:47)
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
[2017-05-25] MEDS ORDERED: ULTRAM PO ONE (21:14)
[2017-05-25 22:01] LABS: Bilirubin,Urine NEG (Negative); Blood,Urine NEG (Negative); Ketones,Urine NEG (Negative); Leukocyte Esterase,Urine NEG (Negative); Mucus,Urine FEW /HPF; Nitrite,Urine NEG (Negative); Protein,Urine <15 mg/dL mg/dL (Negative); Urobilinogen,Urine < 2.0 mg/dL (<2.0)
[2017-05-25 23:03] VITALS: BP 197/99
== END 2017-05-25 23:32 | disposition home or self-care (01) ==
LOC: ED 15:21
DX: R07.89 Other chest pain (principal); R06.00 Dyspnea, unspecified; E66.9 Obesity, unspecified; I11.0 Hypertensive heart disease with heart failure; I50.9 Heart failure, unspecified; E11.9 Type 2 diabetes mellitus without complications; K21.9 Gastro-esophageal reflux disease without esophagitis; J44.9 Chronic obstructive pulmonary disease, unspecified; Z88.6 Allergy status to analgesic agent
CPT/HCPCS: 36415; 71020; 80053; 81001; 83690; 83880; 84443; 84484; 85025; 85379; 85610; 85730; 93005; 93010; 94640; 99284; J2930

== ENCOUNTER 2017-06-14 13:07 | Outpatient (CLI) | payer OTHER ==
[2017-06-14] MEDS ORDERED: PROVENTIL IH ONE (14:12)
== END 2017-06-14 13:08 | disposition home or self-care (01) ==
LOC: PF 13:07
PROVIDERS: ATTEND Internal Medicine
DX: J44.9 Chronic obstructive pulmonary disease, unspecified (principal); I50.9 Heart failure, unspecified
CPT/HCPCS: 94060; 94640

== ENCOUNTER 2017-06-30 08:27 | Outpatient (CLI) | payer OTHER ==
--- NOTE | 2017-06-30 16:20 | XRay Report ---
XRAY BILATERAL KNEE THREE VIEWS EACH: 06/30/17 08:27:00 CLINICAL: Bilateral knee pain. FINDINGS: Right: Medial joint space narrowing with small osteophytes. The lateral joint space is slightly widened with small osteophytes. Patellofemoral joint arthritis with narrowing of the joint space and osteophytes. A prominent quadriceps insertion enthesophyte. No fracture or dislocation. No joint effusion. Normal soft tissues. Left: Medial joint space narrowing with small osteophytes. The lateral joint space is normal with small osteophytes. Patellofemoral joint arthritis with narrowing of the joint and small osteophytes. No joint effusion. No fracture or dislocation. Normal soft tissues. IMPRESSION: Bilateral osteoarthritis with greater involvement of the medial joint spaces and the patellofemoral joints.
--- NOTE | 2017-06-30 16:21 | XRay Report ---
XRAY LUMBAR SPINE THREE VIEWS: 06/30/17 08:27:00 CLINICAL: Back pain. FINDINGS: Normal vertebral body height, alignment and disk spaces. Small osteophytes are most pronounced at L4-5 and L3-4. Facet joint sclerosis at all levels and most severe at L4-5 and L5-S1. The pedicles are intact. No fracture. Normal soft tissues. IMPRESSION: Lumbar degenerative disc disease at L3-4 and L4-5. Multilevel facet joint arthropathy.
== END 2017-06-30 08:28 | disposition home or self-care (01) ==
LOC: XRAY 08:27
PROVIDERS: ATTEND Internal Medicine
DX: M51.36 Other intervertebral disc degeneration, lumbar region (principal); M17.0 Bilateral primary osteoarthritis of knee
CPT/HCPCS: 72100

== ENCOUNTER 2017-06-30 09:15 | Emergency (ER) | payer OTHER ==
[2017-06-30 10:18] LABS: Basophils % (Auto) 0.5 % (0.0-1.8); Eosinophils % (Auto) 1.3 % (0.0-4.3); Hematocrit 39.4 % (30.3-42.9); Mean Corpuscular HGB Conc 33 % (30-34); Mean Corpuscular Hemoglobin 29 pg (28-32); Mean Corpuscular Volume 87 fl (79-97); Platelet Count 215 K/mm3 (140-440); Red Blood Count 4.54 M/mm3 (3.65-5.03); White Blood Count 4.8 K/mm3 (4.5-11.0)
[2017-06-30 10:30] LABS: Anion Gap 19 mmol/L; BUN/Creatinine Ratio 29; Blood Urea Nitrogen 23 mg/dL (7-17); Calcium 9.4 mg/dL (8.4-10.2); Carbon Dioxide 25 mmol/L (22-30); Chloride 99.5 mmol/L (98-107); Glucose 153 mg/dL (65-100); Potassium 3.5 mmol/L (3.6-5.0); Sodium 140 mmol/L (137-145)
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
[2017-06-30] MEDS ORDERED: ZOFRAN IV ONE (12:21)
[2017-06-30] MEDS ORDERED: SUBLIMAZE IV ONE (12:21)
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
[2017-06-30 15:53] VITALS: BP 144/90
[2017-06-30 16:19] LABS: Creatine Kinase MB 1.1 ng/mL (0.0-4.0)
[2017-06-30 16:20] LABS: Creatine Kinase 46 units/L (30-135)
== END 2017-06-30 17:10 | disposition home or self-care (01) ==
LOC: ED 09:15
DX: R07.89 Other chest pain (principal); J40 Bronchitis, not specified as acute or chronic; R11.2 Nausea with vomiting, unspecified; I10 Essential (primary) hypertension; I50.9 Heart failure, unspecified; E11.9 Type 2 diabetes mellitus without complications; K21.9 Gastro-esophageal reflux disease without esophagitis; J45.909 Unspecified asthma, uncomplicated; J44.9 Chronic obstructive pulmonary disease, unspecified; Z90.49 Acquired absence of other specified parts of digestive tract; Z79.82 Long term (current) use of aspirin
CPT/HCPCS: 36415; 71020; 71275; 80048; 82550; 82553; 84484; 85025; 93005; 93010; 96374; 96375; 99284; J2405; J3010; Q9967

== ENCOUNTER 2017-11-20 10:39 | Emergency (ER) | payer MEDICAID ==
[2017-11-20] MEDS ORDERED: TORADOL IM ONE (12:28)
[2017-11-20] MEDS ORDERED: FLEXERIL PO ONE (12:28)
--- NOTE | 2017-11-20 12:43 | Emergency Department Report ---
HPI - General Chief Complaint: Back Pain/Injury Time Seen by Provider: 11/20/17 12:18 - HPI HPI: This is a 56 year old female who presents to ED complaining of right sided upper back pain 2 weeks. Patient states pain started around it. The first and has not gotten better since then. Patient states pain is a stabbing pain that worsened with movement and laying down. She denies any recent falls or injuries to the back. She denies chest pain, shortness of breath, dizziness or lightheadedness. ED Past Medical Hx - Past Medical History Hx Hypertension: Yes Hx Heart Attack/AMI: No Hx Congestive Heart Failure: Yes Hx Diabetes: Yes Hx GERD: Yes Hx Liver Disease: No Hx Renal Disease: No Hx Seizures: No Hx Asthma: Yes Hx COPD: Yes (chronic bronchitis) Additional medical history: BLOOD TRANSFUSION. enlarged heart. "spot on right kidney" - Surgical History Hx Cholecystectomy: Yes Additional Surgical History: C section x 3, hernia repair - Social History Smoking Status: Never Smoker Substance Use Type: None - Medications Home Medications: Home Medications Medication Instructions Recorded Confirmed Last Taken Type Clonidine HCl [Catapres] 0.3 mg PO BID 08/26/15 10/20/17 10/19/17 History amLODIPine [Norvasc] 10 mg PO DAILY 08/26/15 10/20/17 10/19/17 History metFORMIN [Glucophage] 1,000 mg PO BID 08/26/15 10/20/17 10/19/17 History Albuterol Sulfate [Ventolin HFA] 2 puff IH Q4H PRN #1 pump 11/12/15 10/20/17 Rx traMADol [Ultram 50 MG tab] 50 mg PO Q6HR PRN #20 tablet 07/22/16 10/20/1710/19 Rx Aspirin EC [Aspirin Enteric Coated 81 mg PO QDAY #30 tablet. 01/01/1710/19/17 Rx TAB] Losartan [Cozaar] 25 mg PO QDAY 10/20/17 10/20/17 10/19/17 History Pantoprazole [Protonix TAB] 40 mg PO BID #30 tablet 10/20/17 Unknown Rx Triamterene/Hydrochlorothiazid 1 tab PO DAILY 03/21/18 03/21/18 03/20/18 History [Triamterene-Hctz 75-50 mg Tab] Cyclobenzaprine [Flexeril 10 MG 10 mg PO QHS #20 tablet 11/20/17 Unknown Rx TAB] Naproxen [Naprosyn] 375 mg PO BID #20 tablet 11/20/17 Unknown Rx ED Review of Systems ROS: Stated complaint: BACK PAIN Other details as noted in HPI Constitutional: denies: chills, fever Eyes: denies: eye pain, eye discharge, vision change ENT: denies: ear pain, throat pain Respiratory: denies: cough, shortness of breath, wheezing Cardiovascular: denies: chest pain, palpitations Endocrine: no symptoms reported Gastrointestinal: denies: abdominal pain, nausea, diarrhea Genitourinary: denies: urgency, dysuria, discharge Musculoskeletal: denies: back pain, joint swelling, arthralgia Skin: denies: rash, lesions Neurological: denies: headache, weakness, paresthesias Psychiatric: denies: anxiety, depression Hematological/Lymphatic: denies: easy bleeding, easy bruising Physical Exam - Physical Exam Vital Signs: Vital Signs 11/20/17 11:41 Temperature 98.4 F Pulse Rate 91 H Respiratory 16 Rate Blood Pressure 165/82 O2 Sat by Pulse 99 Oximetry Physical Exam: GENERAL: Alert and oriented x3, no apparent distress, Normal Gait, atraumatic. HEAD: Head is normocephalic and a-traumatic. NECK: Supple. Non edematous, No lymphadenopathy or thyromegaly. No C-spine tenderness, full range of motion LUNGS: Symetrical with respiration, No wheezing, no rales or crackles, CTAB. HEART: S1, S2 present, regular rate and rhythm without murmur, no rubs, no gallops. Non tender to palpation BACK: Full range of motion, no spinal tenderness, Tenderness to palpation of the trapezius muscles and latissimus dorsi muscles of the back EXTREMITIES/MUSCULOSKELETAL: No cyanosis, clubbing, rash, lesions or edema. Full ROM bilaterally. UE/LE Pulses 2+ bilaterally. LE and UE 5+ strength bilaterally, NEUROLOGIC: The patient is cooperative with no focal neurologic deficits. SKIN: Warm and dry, No lesions, No ulceration or induration present. ED Course Vital Signs 11/20/17 11:41 Temperature 98.4 F Pulse Rate 91 H Respiratory 16 Rate Blood Pressure 165/82 O2 Sat by Pulse 99 Oximetry ED Medical Decision Making - Medical Decision Making 56-year-old female presents to ED with myalgia of the trapezius muscle ED course: Patient received Toradol and Flexeril in ED. Vital signs are normal patient is in no acute distress Discussed with patient follow-up with primary care physician. Discussed the patient and take medications as prescribed. Patient has no neurological deficit. Patient is alert and oriented 3 and understands all instructions given. Discussed drowsiness effect of Flexeril makes her drowsy and not to operate machinery while taking flexeril Critical care attestation.: If time is entered above; I have spent that time in minutes in the direct care of this critically ill patient, excluding procedure time. ED Disposition Clinical Impression: Myalgia Disposition: DC- TO HOME OR SELFCARE Is pt being admited?: No Does the pt Need Aspirin: No Condition: Stable Instructions: Musculoskeletal Pain (ED), Trigger Point Pain (ED) Additional Instructions: Make sure to follow up with the primary care physician as discussed. Take all your medications as you've been prescribed. If you have any worsening symptoms or develop new symptoms please return to ED immediately. Prescriptions: Cyclobenzaprine [Flexeril 10 MG TAB] 10 mg PO QHS #20 tablet Naproxen [Naprosyn] 375 mg PO BID #20 tablet Referrals: PRIMARY CARE, [Primary Care Provider] - 3-5 Days [facility] [Outside] - 3-5 Days [facility] [Outside] - 3-5 Days Forms: Work/School Release Form(ED), Accompanied Note Time of Disposition: 12:54
[2017-11-20 13:27] VITALS: BP 144/72
== END 2017-11-20 13:26 | disposition home or self-care (01) ==
LOC: ED 10:39
DX: M79.1 Myalgia (principal); I10 Essential (primary) hypertension; E11.9 Type 2 diabetes mellitus without complications; K21.9 Gastro-esophageal reflux disease without esophagitis; J44.9 Chronic obstructive pulmonary disease, unspecified; Z79.82 Long term (current) use of aspirin
CPT/HCPCS: 96372; 99282; J1885

== ENCOUNTER 2017-12-09 08:39 | Outpatient (CLI) | payer MEDICAID ==
[2017-12-09 09:25] LABS: Alanine Aminotransferase 10 units/L (7-56); Albumin 3.9 g/dL (3.9-5); BUN/Creatinine Ratio 21; Blood Urea Nitrogen 17 mg/dL (7-17); Calcium 9.7 mg/dL (8.4-10.2); Chol/HDL Ratio 2.88 %; HDL Cholesterol 53 mg/dL (40-59); Hemolysis Index 2; LDL Cholesterol,Direct 97 mg/dL (50-130)
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
--- NOTE | 2017-12-09 12:36 | Nuclear Medicine Report ---
LUNG SCAN, VENTILATION AND PERFUSION: History: Elevated d-dimer, shortness of breath. Technique: 5mci of Tc99m MAA was infused for the perfusion images. 15mci XE 133 gas was inhaled for the ventilatory images. Correlation is made with a chest x-ray dated 12/09/17. Findings: Inhalation of Xenon gas demonstrates a normal distribution of the activity throughout both lungs. The wash out phases show no focal retention of activity. After injection of Technetium 99m macroaggregated albumin gamma camera imaging of the lungs in multiple projections demonstrates normal pulmonary contours with a homogeneous distribution of activity. No focal areas of perfusion deficiency are identified. IMPRESSION: Low probability for pulmonary embolus.
--- NOTE | 2017-12-09 14:12 | Fluoroscopy Report ---
UPPER GI AIR CONTRAST: History: Gastroesophageal reflux disease without esophagitis FINDINGS: 22 fluoroscopic images were obtained during this exam. Deglutition is normal. The esophagus has normal caliber and mucosal pattern throughout. No hiatal hernia was witnessed. Multiple episodes of gastroesophageal reflux to the level of the clavicles was witnessed during this exam. Also of note during this exam was moderate to severe decrease in esophageal and gastric motility. The gastric cavity, duodenal bulb and duodenal sweep are unremarkable. IMPRESSION: Moderate to severe gastroesophageal reflux disease. Gastroparesis is suspected.
--- NOTE | 2017-12-10 14:08 | Vascular Lab Report ---
LOWER EXTREMITY VENOUS DUPLEX: REASON FOR EXAM: Swelling of the lower extremities. COMMENTS ON THE RIGHT: All veins visualized are freely compressible without evidence of internal echogenicity. Flow is spontaneous and phasic throughout. COMMENTS ON THE LEFT: All veins visualized are freely compressible without evidence of internal echogenicity. Flow is spontaneous and phasic throughout. IMPRESSION: No evidence of acute or chronic deep venous thrombosis in either lower extremity.
== END 2017-12-09 08:40 | disposition home or self-care (01) ==
LOC: VAS 08:39
PROVIDERS: ATTEND Internal Medicine
DX: J45.998 Other asthma (principal); K21.9 Gastro-esophageal reflux disease without esophagitis; R79.1 Abnormal coagulation profile; R60.0 Localized edema; I11.0 Hypertensive heart disease with heart failure; I50.9 Heart failure, unspecified; E11.9 Type 2 diabetes mellitus without complications; I25.10 Atherosclerotic heart disease of native coronary artery without angina pectoris; Z79.899 Other long term (current) drug therapy
CPT/HCPCS: 36415; 71046; 74247; 78582; 80053; 80061; 82785; 84436; 84443; 93970; A9540; A9558

== ENCOUNTER 2018-02-08 00:03 | Emergency (ER) | payer MEDICAID ==
[2018-02-08] MEDS ORDERED: ASPIRIN PO ONE (00:36)
[2018-02-08 01:01] LABS: Basophils % (Auto) 0.2 % (0.0-1.8); Eosinophils # (Auto) 0.1 K/mm3 (0.0-0.4); Eosinophils % (Auto) 1.2 % (0.0-4.3); Hematocrit 39.6 % (30.3-42.9); Hemoglobin 13.1 gm/dl (10.1-14.3); Lymphocytes # (Auto) 1.8 K/mm3 (1.2-5.4); Lymphocytes % (Auto) 30.3 % (13.4-35.0); Mean Corpuscular HGB Conc 33 % (30-34); Mean Corpuscular Hemoglobin 28 pg (28-32); Mean Corpuscular Volume 85 fl (79-97); Monocytes # (Auto) 0.3 K/mm3 (0.0-0.8); Monocytes % (Auto) 5.2 % (0.0-7.3); Platelet Count 216 K/mm3 (140-440); Red Blood Count 4.63 M/mm3 (3.65-5.03); Red Cell Distribution Width 15.6 % (13.2-15.2)
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
[2018-02-08 01:16] LABS: BUN/Creatinine Ratio 33; Blood Urea Nitrogen 26 mg/dL (7-17); Calcium 9.4 mg/dL (8.4-10.2); Hemolysis Index 7
--- NOTE | 2018-02-08 03:26 | Emergency Department Report ---
ED Chest Pain HPI - General Chief Complaint: Chest Pain Stated Complaint: CHEST PAIN Time Seen by Provider: 02/08/18 02:52 Source: patient, EMS Mode of arrival: Ambulatory Limitations: No Limitations - History of Present Illness Initial Comments: Ms. Chavez is a very pleasant 57-year-old female with history of reflux esophagitis, diastolic heart failure, severe obesity hypertension, asthma, diabetes. Today she presents with several months of chest pain and shortness of breath. She has right axillary pain for which she was seen twice in our ED. She's had a recent hospitalization in September. She followed by Dr. Eliana Turner serging machine operator automatic. She is also followed by precision assembler bench. Her precision assembler bench feels that her chest pain shortness breath is related to sleep apnea. She had a recent positive sleep study. She is awaiting CPAP machine. She has follow-up with her precision assembler bench in 2 days this . She saw her serging machine operator automatic in November. Chest shortness of breath is worse at night especially when laying flat. She is unable to lay flat when she sleeps at MD Complaint: chest pain -: month(s) (several months since September) Onset: during rest, other (worse at night) Pain Location: right chest Pain Radiation: none Severity: moderate Severity scale (0 -10): 9 Quality: tightness, heaviness Consistency: constant Improves With: other (sitting up) Worsens With: other (leaning back) Context: recent illness Other Symptoms: leg swelling. denies: cough, fever, syncope, rash, acid taste in mouth - Related Data Home Medications Medication Instructions Recorded Confirmed Last Taken Clonidine HCl [Catapres] 0.3 mg PO BID 08/26/15 10/20/17 10/19/17 amLODIPine [Norvasc] 10 mg PO DAILY 08/26/15 10/20/17 10/19/17 metFORMIN [Glucophage] 1,000 mg PO BID 08/26/15 10/20/17 10/19/17 Losartan [Cozaar] 25 mg PO QDAY 10/20/17 10/20/17 10/19/17 Triamterene/Hydrochlorothiazid 1 tab PO DAILY 10/20/17 10/20/17 10/19/17 [Triamterene-Hctz 75-50 mg Tab] Previous Rx's Medication Instructions Recorded Last Taken Type Albuterol Sulfate [Ventolin HFA] 2 puff IH Q4H PRN #1 pump 11/12/15 10/19/17 Rx traMADol [Ultram 50 MG tab] 50 mg PO Q6HR PRN #20 tablet 07/22/16 10/19/17 Rx Aspirin EC [Aspirin Enteric Coated 81 mg PO QDAY #30 tablet. 01/01/17 Rx TAB] Pantoprazole [Protonix TAB] 40 mg PO BID #30 tablet 10/20/17 Unknown Rx Cyclobenzaprine [Flexeril 10 MG 10 mg PO QHS #20 tablet 11/20/17 Unknown Rx TAB] Naproxen [Naprosyn] 375 mg PO BID #20 tablet 11/20/17 Unknown Rx Allergies Allergy/AdvReac Type Severity Reaction Status Date / Time acetaminophen [From Percocet] Allergy Unknown Verified 03/10/14 09:20 morphine Allergy Unknown Verified 05/19/16 12:06 oxycodone HCl [From Percocet] Allergy Unknown Verified 03/10/14 09:20 Heart Score - HEART Score History: Slightly suspicious EKG: Normal Age: 45-65 Risk factors: > 3 risk factors or hx of atherosclerotic disease Troponin: < normal limit HEART Score: 3 ED Review of Systems ROS: Stated complaint: CHEST PAIN Other details as noted in HPI Comment: All other systems reviewed and negative Constitutional: denies: fever, malaise Respiratory: denies: cough Cardiovascular: chest pain Gastrointestinal: denies: abdominal pain Musculoskeletal: denies: back pain ED Past Medical Hx - Past Medical History Previous Medical History?: Yes Hx Hypertension: Yes Hx Heart Attack/AMI: No Hx Congestive Heart Failure: Yes Hx Diabetes: Yes Hx GERD: Yes Hx Liver Disease: No Hx Renal Disease: No Hx Seizures: No Hx Asthma: Yes Hx COPD: Yes (chronic bronchitis) Additional medical history: BLOOD TRANSFUSION. enlarged heart. "spot on right kidney" - Surgical History Past Surgical History?: Yes Hx Cholecystectomy: Yes Additional Surgical History: C section x 3, hernia repairs - Social History Smoking Status: Never Smoker Substance Use Type: None - Medications Home Medications: Home Medications Medication Instructions Recorded Confirmed Last Taken Type Clonidine HCl [Catapres] 0.3 mg PO BID 08/26/15 10/20/17 10/19/17 History amLODIPine [Norvasc] 10 mg PO DAILY 08/26/15 10/20/17 10/19/17 History metFORMIN [Glucophage] 1,000 mg PO BID 08/26/15 10/20/17 10/19/17 History Albuterol Sulfate [Ventolin HFA] 2 puff IH Q4H PRN #1 pump 11/12/15 10/20/17 Rx traMADol [Ultram 50 MG tab] 50 mg PO Q6HR PRN #20 tablet 07/22/16 10/20/1710/19 Rx Aspirin EC [Aspirin Enteric Coated 81 mg PO QDAY #30 tablet. 01/01/1710/19/17 Rx TAB] Losartan [Cozaar] 25 mg PO QDAY 10/20/17 10/20/17 10/19/17 History Pantoprazole [Protonix TAB] 40 mg PO BID #30 tablet 10/20/17 Unknown Rx Triamterene/Hydrochlorothiazid 1 tab PO DAILY 10/20/17 10/20/17 10/19/17 History [Triamterene-Hctz 75-50 mg Tab] Cyclobenzaprine [Flexeril 10 MG 10 mg PO QHS #20 tablet 11/20/17 Unknown Rx TAB] Naproxen [Naprosyn] 375 mg PO BID #20 tablet 11/20/17 Unknown Rx ED Physical Exam - General Limitations: No Limitations General appearance: alert, in no apparent distress - Head Head exam: Present: atraumatic, normocephalic - Eye Eye exam: Present: normal appearance. Absent: scleral icterus, conjunctival injection - ENT ENT exam: Present: mucous membranes moist - Neck Neck exam: Present: normal inspection. Absent: tenderness, meningismus - Respiratory Respiratory exam: Present: normal lung sounds bilaterally. Absent: respiratory distress, wheezes, rales, rhonchi - Cardiovascular Cardiovascular Exam: Present: regular rate, normal rhythm, normal heart sounds. Absent: bradycardia, tachycardia, systolic murmur, diastolic murmur, rubs, gallop - GI/Abdominal GI/Abdominal exam: Present: soft, normal bowel sounds. Absent: distended, tenderness, guarding, rebound - Extremities Exam Extremities exam: Present: normal inspection - Back Exam Back exam: Present: normal inspection - Neurological Exam Neurological exam: Present: alert, oriented X3 - Psychiatric Psychiatric exam: Present: normal affect, normal mood - Skin Skin exam: Present: warm, dry, intact, normal color. Absent: rash ED Course Vital Signs 02/08/18 02/08/18 02/08/18 00:03 00:30 01:42 Temperature 98.7 F 98.7 F 98.6 F Pulse Rate 90 94 H 88 Respiratory 18 18 20 Rate Blood Pressure 160/83 160/83 Blood Pressure 182/102 [Right] O2 Sat by Pulse 100 100 100 Oximetry BRENNAN score - Brennan Score Age > 65: (0) No Aspirin use within the Past 7 Days: (0) No 3 or more CAD Risk Factors: (1) Yes 2 or more Angina events in past 24 hrs: (0) No Known CAD with more than 50% Stenosis: (0) No Elevated Cardiac Markers: (0) No ST Deviation Greater than 0.5mm: (0) No BRENNAN Score: 1 ED Medical Decision Making - Lab Data Result diagrams: 02/08/18 00:43 02/08/18 00:43 Laboratory Results - last 24 hr 02/08/18 02/08/18 02/08/18 00:43 00:43 00:43 WBC 5.9 RBC 4.63 Hgb 13.1 Hct 39.6 MCV 85 MCH 28 MCHC 33 RDW 15.6 H Plt Count 216 Lymph % (Auto) 30.3 [place] % (Auto) 5.2 Eos % (Auto) 1.2 Baso % (Auto) 0.2 Lymph # 1.8 [place] # 0.3 Eos # 0.1 Baso # 0.0 Seg Neutrophils % 63.1 Seg Neutrophils # 3.7 Sodium 139 Potassium 3.8 Chloride 100.2 Carbon Dioxide 26 Anion Gap 17 BUN 26 H Creatinine 0.8 Estimated GFR > 60 BUN/Creatinine Ratio 33 Glucose 138 H Calcium 9.4 Troponin T < 0.010 NT-Pro-B Natriuret Pep 59.36 Vital Signs - 24 hr 02/08/18 02/08/18 02/08/18 00:03 00:30 01:42 Temperature 98.7 F 98.7 F 98.6 F Pulse Rate 90 94 H 88 Respiratory 18 18 20 Rate Blood Pressure 160/83 160/83 Blood Pressure 182/102 [Right] O2 Sat by Pulse 100 100 100 Oximetry - EKG Data Interpretation: no acute changes 02/08/18 03:29 First EKG 0025 Sinus tachycardia rate 100 bpm normal axis and intervals no ST-T signs of ischemia no significant ST elevation Second EKG obtained at 0310 NSR nl rate nl axis nl intervals no ST-T signs of ischemia no ST elevation rate 90 bpm - Medical Decision Making Ms. Chavez is a very pleasant 57-year-old female with several morbidities listed in the HPI. The chest pain and dyspnea she experiencing especially at night have severe causes. Causes include: GERD, diastolic heart dysfunction, external restrictive disease due to severe obesity, I suspect an element of pulmonary hypertension as a result of sleep apnea. I provided reassurance to the patient. Her CPAP machine will be delivered soon. The CPAP machine should make her feel much better. She'll follow up with her precision assembler bench in 2 days for which she has an appointment. Repeat oxygenation 100% on room air while patient is sitting upright. I Recommend that she sleeps upright in a recliner or comfortable chair until her CPAP machine is delivered to her. I reviewed electronic record, no indication of significant coronary artery disease during prior cardiac evaluation while hospitalized in September. Myocardial perfusion scan did not reveal ischemic changes. Critical care attestation.: If time is entered above; I have spent that time in minutes in the direct care of this critically ill patient, excluding procedure time. ED Disposition Clinical Impression: Chest pain, Shortness of breath Disposition: DC-01 TO HOME OR SELFCARE Is pt being admited?: No Does the pt Need Aspirin: No Condition: Stable Instructions: Chest Pain (ED), Dyspnea (ED) Referrals: PRIMARY CARE, [Primary Care Provider] - 3-5 Days Time of Disposition: 03:35
[2018-02-08 03:37] VITALS: BP 178/87
== END 2018-02-08 03:48 | disposition home or self-care (01) ==
LOC: ED 00:03
DX: R07.89 Other chest pain (principal); R06.02 Shortness of breath; I11.0 Hypertensive heart disease with heart failure; I50.9 Heart failure, unspecified; E11.9 Type 2 diabetes mellitus without complications; K21.9 Gastro-esophageal reflux disease without esophagitis; J44.9 Chronic obstructive pulmonary disease, unspecified; Z90.49 Acquired absence of other specified parts of digestive tract; Z88.6 Allergy status to analgesic agent
CPT/HCPCS: 36415; 71046; 80048; 83880; 84484; 85025; 93005; 93010; 99284

== ENCOUNTER 2018-09-15 22:51 | Emergency (ER) | payer MEDICAID, OTHER ==
[2018-09-16] MEDS ORDERED: ASPIRIN PO ONE (00:18)
[2018-09-16 00:39] LABS: Basophils # (Auto) 0.1 K/mm3 (0.0-0.1); Basophils % (Auto) 0.9 % (0.0-1.8); Eosinophils # (Auto) 0.1 K/mm3 (0.0-0.4); Eosinophils % (Auto) 1.1 % (0.0-4.3); Lymphocytes # (Auto) 1.5 K/mm3 (1.2-5.4); Lymphocytes % (Auto) 22.3 % (13.4-35.0); Mean Corpuscular HGB Conc 33 % (30-34); Mean Corpuscular Volume 85 fl (79-97); Monocytes # (Auto) 0.3 K/mm3 (0.0-0.8); Monocytes % (Auto) 5.1 % (0.0-7.3); Platelet Count 257 K/mm3 (140-440); Red Blood Count 4.69 M/mm3 (3.65-5.03); Red Cell Distribution Width 15.6 % (13.2-15.2)
[2018-09-16] MEDS ORDERED: NACL 0.9% 500 ML 500 ML IV ONE (01:14)
[2018-09-16] MEDS ORDERED: REGLAN IV ONE (01:14)
--- NOTE | 2018-09-16 01:15 | Emergency Department Report ---
ED General Adult HPI - General Chief complaint: Chest Pain Stated complaint: TAYLRO/CP/BODY ACHES/WEAKNESS Time Seen by Provider: 09/16/18 00:38 Source: patient, RN notes reviewed, old records reviewed Mode of arrival: Ambulatory Limitations: No Limitations - History of Present Illness Initial comments: This is a 57-year-old female. The patient has a history of morbid obesity, obstructive sleep apnea, on a CPAP, hypertension, and possible anxiety. Patient has presented multiple times to this hospital with complaints of chest pain. As per recent cardiology consultation from May 2018, she's had an extensive prior ischemic workup, including a cardiac catheterization, which demonstrated no significant coronary artery disease, and normal nuclear stress test September 2017. During a recent cardiology consultation from May 2018, "recommends no fu rther cardiac ischemic workup, considered treatment with NSAIDs for musculoskeletal chest pain." Today, the patient presents to the ER with complaint of anterior chest wall pain, present for one week, intermittent, does not radiate to the back, arms or neck. There is no vomiting or diaphoresis. T here is chronic shortness of breath. The shortness of breath is chronic, and does not appear to be new, different or worsens. The patient denies leg pain, leg swelling, recent travel, recent surgeries, , DVT, pulmonary embolus risk factors. The patient endorses another complaint of headache, which is throbbing, global, not sudden or thunderclap in nature, and not maximal in intensity. Associated with this headache is a sensation of "my leg locked up on me yesterday." However, she denies weakness, and change in sensation. Patient also describes poor sleep, does not feel rested after her night of sleeping on her CPAP. She also describes diffuse myalgias and arthralgias. -: Gradual, days(s), week(s) (1) Location: head, chest, left, right, upper extremity, lower extremity Quality: aching Consistency: intermittent Improves with: other Worsens with: other Associated Symptoms: chest pain, cough, headaches, loss of appetite, malaise, shortness of breath, weakness. denies: confusion, diaphoresis, fever/chills, nausea/vomiting, rash, seizure, syncope - Related Data Home Medications Medication Instructions Recorded Confirmed Last Taken Clonidine HCl [Catapres] 0.3 mg PO BID 08/26/15 05/02/1810/19/18 amLODIPine [Norvasc] 10 mg PO DAILY 08/26/15 05/02/18 10/19/17 metFORMIN [Glucophage] 1,000 mg PO BID 08/26/15 05/02/18 10/19/17 Losartan [Cozaar] 25 mg PO QDAY 10/20/17 05/02/18 10/19/17 Triamterene/Hydrochlorothiazid 1 tab PO DAILY 10/20/17 05/02/18 10/19/17 [Triamterene-Hctz 75-50 mg Tab] Previous Rx's Medication Instructions Recorded Last Taken Type Albuterol Sulfate [Ventolin HFA] 2 puff IH Q4H PRN #1 pump 11/12/15 10/19/17 Rx Aspirin EC [Aspirin Enteric Coated 81 mg PO QDAY #30 tablet. 01/01/17 10/19/17 Rx TAB] Pantoprazole [Protonix TAB] 40 mg PO BID #30 tablet 10/20/17 Unknown Rx Cyclobenzaprine [Flexeril 10 MG 10 mg PO QHS #20 tablet 11/20/17 Unknown Rx TAB] Naproxen [Naprosyn TAB] 375 mg PO BID #20 tablet 11/20/17 Unknown Rx Aspirin [Aspirin TAB] 325 mg PO QDAY tablet 05/04/18 Unknown Rx Lispro Insulin [Humalog] 0 unit SUB-Q ACHS units 05/04/18 Unknown Rx Losartan [Cozaar] 25 mg PO QDAY tablet 05/04/18 Unknown Rx amLODIPine [Norvasc] 10 mg PO DAILY tablet 05/04/18 Unknown Rx metFORMIN [Glucophage] 1,000 mg PO BIDDIAB tablet 05/04/18 Unknown Rx ALBUTEROL NEB's [Proventil 0.083% 2.5 mg IH Q4HR PRN #30 ml 06/27/18 Unknown Rx NEBS] Nebulizer [Aeroneb Go Nebulizer] 1 each MC Q4HR PRN #1 each 06/27/18 Unknown Rx Famotidine [Pepcid] 20 mg PO BID #30 tablet 09/16/18 Unknown Rx Ibuprofen [Motrin] 600 mg PO Q8H PRN #30 tablet 09/16/18 Unknown Rx Allergies Allergy/AdvReac Type Severity Reaction Status Date / Time acetaminophen [From Percocet] Allergy Unknown Verified 03/10/14 09:20 morphine Allergy Unknown Verified 05/19/16 12:06 oxycodone HCl [From Percocet] Allergy Unknown Verified 03/10/14 09:20 ED Review of Systems ROS: Stated complaint: TAYLOR/CP/BODY ACHES/WEAKNESS Other details as noted in HPI Constitutional: malaise. denies: fever Eyes: denies: vision change ENT: congestion Respiratory: shortness of breath Cardiovascular: chest pain Gastrointestinal: denies: nausea, vomiting Genitourinary: denies: dysuria Musculoskeletal: arthralgia, myalgia Neurological: headache. denies: weakness Psychiatric: anxiety ED Past Medical Hx - Past Medical History Previous Medical History?: Yes Hx Hypertension: Yes Hx Heart Attack/AMI: No Hx Congestive Heart Failure: Yes Hx Diabetes: Yes Hx GERD: Yes Hx Liver Disease: No Hx Renal Disease: No Hx Seizures: No Hx Asthma: Yes Hx COPD: Yes (chronic bronchitis) Additional medical history: BLOOD TRANSFUSION,anemia,C-PAP. enlarged heart. "spot on right kidney". Obstructive sleep apnea - Surgical History Past Surgical History?: Yes Hx Cholecystectomy: Yes Additional Surgical History: C section x 3, hernia repairs - Social History Smoking Status: Unknown if ever smoked Substance Use Type: None - Medications Home Medications: Home Medications Medication Instructions Recorded Confirmed Last Taken Type Clonidine HCl [Catapres] 0.3 mg PO BID 08/26/15 05/02/18 10/19/17 History amLODIPine [Norvasc] 10 mg PO DAILY 08/26/15 05/02/18 10/19/17 History metFORMIN [Glucophage] 1,000 mg PO BID 08/26/15 05/02/18 10/19/17 History Albuterol Sulfate [Ventolin HFA] 2 puff IH Q4H PRN #1 pump 11/12/15 05/02/18 10/19/17 Rx Aspirin EC [Aspirin Enteric Coated 81 mg PO QDAY #30 tablet. 01/01/17 05/02/18 10/19/17 Rx TAB] Losartan [Cozaar] 25 mg PO QDAY 10/20/17 05/02/18 10/19/17 History Pantoprazole [Protonix TAB] 40 mg PO BID #30 tablet 10/20/17 05/02/18 Unknown Rx Triamterene/Hydrochlorothiazid 1 tab PO DAILY 10/20/17 05/02/18 10/19/17 History [Triamterene-Hctz 75-50 mg Tab] Cyclobenzaprine [Flexeril 10 MG 10 mg PO QHS #20 tablet 11/20/17 05/02/18 Unknown Rx TAB] Naproxen [Naprosyn TAB] 375 mg PO BID #20 tablet 11/20/17 05/02/18 Unknown Rx Aspirin [Aspirin TAB] 325 mg PO QDAY tablet 05/04/18 Unknown Rx Lispro Insulin [Humalog] 0 unit SUB-Q ACHS units 05/04/18 Unknown Rx Losartan [Cozaar] 25 mg PO QDAY tablet 05/04/18 Unknown Rx amLODIPine [Norvasc] 10 mg PO DAILY tablet 05/04/18 Unknown Rx metFORMIN [Glucophage] 1,000 mg PO BIDDIAB tablet 05/04/18 Unknown Rx ALBUTEROL NEB's [Proventil 0.083% 2.5 mg IH Q4HR PRN #30 ml 06/27/18 Unknown Rx NEBS] Nebulizer [Aeroneb Go Nebulizer] 1 each MC Q4HR PRN #1 each 06/27/18 Unknown Rx Famotidine [Pepcid] 20 mg PO BID #30 tablet 09/16/18 Unknown Rx Ibuprofen [Motrin] 600 mg PO Q8H PRN #30 tablet 09/16/18 Unknown Rx ED Physical Exam - General Limitations: No Limitations General appearance: alert, in no apparent distress - Head Head exam: Present: atraumatic, normocephalic - Eye Eye exam: Present: normal appearance, PERRL, EOMI, other (visual acuity intact to finger counting, color perception, reading at a close distance). Absent: nystagmus - ENT ENT exam: Present: normal exam, normal orophraynx, mucous membranes moist, normal external ear exam - Neck Neck exam: Present: normal inspection, full ROM. Absent: tenderness, meningismu s - Respiratory Respiratory exam: Present: chest wall tenderness, decreased breath sounds. Absent: respiratory distress - Cardiovascular Cardiovascular Exam: Present: regular rate, normal rhythm, normal heart sounds. Absent: bradycardia, tachycardia, irregular rhythm, systolic murmur, diastolic murmur, rubs, gallop - GI/Abdominal GI/Abdominal exam: Present: soft. Absent: distended, tenderness, guarding, rebound, rigid, pulsatile mass - Extremities Exam Extremities exam: Present: normal inspection, full ROM, other (2+ pulses noted in the bilateral upper, lower extremities. Compartments soft. No long bony tenderness. The pelvis is stable.). Absent: pedal edema, joint swelling, calf tenderness - Back Exam Back exam: Present: normal inspection, full ROM. Absent: tenderness, CVA tenderness (R), paraspinal tenderness, vertebral tenderness - Neurological Exam Neurological exam: Present: alert, oriented X3, CN II-XII intact, normal gait (there is no pass pointing.), other (Extraocular movements intact. Tongue midline. No facial droop. Facial sensation intact to light touch in the V1, V2, V3 distribution bilaterally. 5 and 5 strength in 4 extremities.. Sensation is intact to light touch in 4 extremities.). Absent: motor sensory deficit - Psychiatric Psychiatric exam: Present: anxious - Skin Skin exam: Present: warm, dry, intact, normal color. Absent: rash ED Course Vital Signs 09/16/18 09/16/18 09/16/18 00:53 01:00 02:00 Temperature 98.2 F Pulse Rate 90 103 H 110 H Respiratory 21 21 20 Rate Blood Pressure 148/85 148/85 144/83 Blood Pressure 148/85 [Left] O2 Sat by Pulse 99 98 95 Oximetry - Reevaluation(s) Reevaluation #1: 09/16/18 02:42 Differential diagnosis, including but not limited to: Migraine headache, tension headache, cluster headaches, structural intracranial lesion, acute coronary syndrome, GERD, gastritis, hiatal hernia, obstructive sleep apnea, pneumonia, pulmonary embolus Assessment and plan: 57-year-old female, low risk by well's criteria, with no pulmonary embolus or DVT risk factors with a negative d-dimer, with one negative troponin in the context of a week of chest pain, has recently had extensive evaluations by cardiology, who cleared her from an ischemic perspective, EKG unchanged 2, and low risk by the heart score. Also complains of nonspecific headache, and musculoskeletal discomfort. Physical GCS of 15. Has an NIH score of 0. Walks with a steady gait. Patient is clinically sober. I highly suspect that her somatic complaints are likely related to her poorly managed obstructive sleep apnea. Patient was counseled to follow up with her outpatient sleep specialist, Dr. Cristina, and she was advised to pursue aggressive weight loss. The patient has been observed in the emergency room for hours without clinical decompensation. Tachycardia intermittent, appears to be anxious. The patient does not appear to have an emergent medical condition at this time, and she is medically suitable to follow up with outpatient primary care doctor in sleep specialist. 09/16/18 02:43 ED Medical Decision Making - Lab Data Result diagrams: 09/16/18 00:22 09/16/18 00:22 Vital Signs 09/16/18 09/16/18 09/16/18 00:53 01:00 02:00 Temperature 98.2 F Pulse Rate 90 103 H 110 H Respiratory 21 21 20 Rate Blood Pressure 148/85 148/85 144/83 Blood Pressure 148/85 [Left] O2 Sat by Pulse 99 98 95 Oximetry Lab Results 09/16/18 09/16/18 09/16/18 Range/Units 00:22 00:22 01:18 WBC 6.7 (4.5-11.0) K/mm3 RBC 4.69 (3.65-5.03) M/mm3 Hgb 13.0 (10.1-14.3) gm/dl Hct 40.0 (30.3-42.9) % MCV 85 (79-97) fl MCH 28 (28-32) pg MCHC 33 (30-34) % RDW 15.6 H (13.2-15.2) % Plt Count 257 (140-440) K/mm3 Lymph % (Auto) 22.3 (13.4-35.0) % Ware % (Auto) 5.1 (0.0-7.3) % Eos % (Auto) 1.1 (0.0-4.3) % Baso % (Auto) 0.9 (0.0-1.8) % Lymph # 1.5 (1.2-5.4) K/mm3 Ware # 0.3 (0.0-0.8) K/mm3 Eos # 0.1 (0.0-0.4) K/mm3 Baso # 0.1 (0.0-0.1) K/mm3 Seg Neutrophils % 70.6 H (40.0-70.0) % Seg Neutrophils # 4.7 (1.8-7.7) K/mm3 D-Dimer 149.20 (0-234) ng/mlDDU Sodium 139 (137-145) mmol/L Potassium 3.7 (3.6-5.0) mmol/L Chloride 98.2 (98-107) mmol/L Carbon Dioxide 27 (22-30) mmol/L Anion Gap 18 mmol/L BUN 25 H (7-17) mg/dL Creatinine 1.0 (0.7-1.2) mg/dL Estimated GFR > 60 ml/min BUN/Creatinine Ratio 25 % Glucose 153 H (65-100) mg/dL Calcium 9.8 (8.4-10.2) mg/dL Magnesium (1.7-2.3) mg/dL Total Creatine Kinase (30-135) units/L Troponin T < 0.010 (0.00-0.029) ng/mL 09/16/18 Range/Units 01:18 WBC (4.5-11.0) K/mm3 RBC (3.65-5.03) M/mm3 Hgb (10.1-14.3) gm/dl Hct (30.3-42.9) % MCV (79-97) fl MCH (28-32) pg MCHC (30-34) % RDW (13.2-15.2) % Plt Count (140-440) K/mm3 Lymph % (Auto) (13.4-35.0) % Ware % (Auto) (0.0-7.3) % Eos % (Auto) (0.0-4.3) % Baso % (Auto) (0.0-1.8) % Lymph # (1.2-5.4) K/mm3 Ware # (0.0-0.8) K/mm3 Eos # (0.0-0.4) K/mm3 Baso # (0.0-0.1) K/mm3 Seg Neutrophils % (40.0-70.0) % Seg Neutrophils # (1.8-7.7) K/mm3 D-Dimer (0-234) ng/mlDDU Sodium (137-145) mmol/L Potassium (3.6-5.0) mmol/L Chloride (98-107) mmol/L Carbon Dioxide (22-30) mmol/L Anion Gap mmol/L BUN (7-17) mg/dL Creatinine (0.7-1.2) mg/dL Estimated GFR ml/min BUN/Creatinine Ratio % Glucose (65-100) mg/dL Calcium (8.4-10.2) mg/dL Magnesium 2.10 (1.7-2.3) mg/dL Total Creatine Kinase 131 (30-135) units/L Troponin T (0.00-0.029) ng/mL - EKG Data -: EKG Interpreted by Me EKG shows normal: sinus rhythm Rate: normal - EKG Data When compared to previous EKG there are: no significant change Interpretation: no acute changes, unchanged when compared t 09/16/18 02:41 EKG #1 shows sinus tachycardia, 109 bpm, left axis deviation, poor R-wave progression, low voltage, not consistent with ST elevation myocardial inf arction, appears unchanged when compared to prior EKG from June 2018 EKG #2 also appears to be unchanged from prior EKG. Borderline left ventricular hypertrophy is noted. Neither EKG consistent with an ST elevation myocardial infarction. - Radiology Data Radiology results: pending, report reviewed, image reviewed X-ray of the chest is negative for acute disease. Noncontrast CT scan of the brain is negative for acute disease. Critical care attestation.: If time is entered above; I have spent that time in minutes in the direct care of this critically ill patient, excluding procedure time. ED Disposition Clinical Impression: Headache, Chest pain Disposition: -01 TO HOME OR SELFCARE Is pt being admited?: No Does the pt Need Aspirin: No Condition: Good Instructions: Chest Pain (ED) Additional Instructions: Continue outpatient medications. Take the medications as needed/directed for pain. Avoid consumption of heavy, spicy foods. Follow-up with her primary care doctor, shipper/receiver or sleep specialist within the next 7-10 days. I recommend that patient follow-up with your sleep specialist within the next 7-10 days to have CPAP settings reevaluated and possibly readjusted. I recommended weight loss as tolerated, physical activity as tolerated, exercise as tolerated, as this will most likely improve intermediate symptoms. Referrals: BRI GENAO MD [Primary Care Provider] - 7-10 days SHIKHA KATZ MD [Staff Physician] - 7-10 days
[2018-09-16 01:49] LABS: BUN/Creatinine Ratio 25; Blood Urea Nitrogen 25 mg/dL (7-17); Calcium 9.8 mg/dL (8.4-10.2); Hemolysis Index 3
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
[2018-09-16 02:39] VITALS: BP 144/83
[2018-09-16] MEDS ORDERED: TORADOL IV ONE (02:43)
[2018-09-16] MEDS ORDERED: PEPCID IV ONE (02:46)
--- NOTE | 2018-09-16 03:03 | Cat Scan Report ---
FINAL REPORT PROCEDURE: CT HEAD/BRAIN WO CON TECHNIQUE: Computerized tomography of the head was performed without contrast material. HISTORY: headache COMPARISON: No prior studies are available for comparison. FINDINGS: Skull and scalp: Normal. Paranasal sinuses: Normal. Ventricles and subarachnoid spaces: Normal. Cerebrum: No evidence of hemorrhage, acute infarction or mass . Cerebellum and brainstem: No evidence of hemorrhage, acute infarction or mass. Vasculature: Normal. Comments: None. IMPRESSION: Normal Examination
== END 2018-09-16 04:01 | disposition home or self-care (01) ==
LOC: ED 22:51
DX: R07.89 Other chest pain (principal); R51 Headache; I11.0 Hypertensive heart disease with heart failure; I50.9 Heart failure, unspecified; E11.9 Type 2 diabetes mellitus without complications; K21.9 Gastro-esophageal reflux disease without esophagitis; J44.9 Chronic obstructive pulmonary disease, unspecified; D64.9 Anemia, unspecified; Z79.4 Long term (current) use of insulin; Z90.49 Acquired absence of other specified parts of digestive tract; Z88.6 Allergy status to analgesic agent; Z88.5 Allergy status to narcotic agent
CPT/HCPCS: 36415; 70450; 71046; 80048; 82550; 83735; 84484; 85025; 85379; 93005; 93010; 96374; 96375; 99285; J1885; J2765; J7040

== ENCOUNTER 2019-03-03 10:11 | Outpatient (CLI) | payer MEDICAID ==
--- NOTE | 2019-03-06 10:24 | Mammography Report ---
DIGITAL SCREENING MAMMOGRAM WITH CAD, 03/03/2019 INDICATION: Routine screening mammography. TECHNIQUE: Digital bilateral 2D mammography was obtained in the craniocaudal and mediolateral obliq ue projections. This examination was interpreted with the benefit of Computer-Aided Detection analysi s. COMPARISON: This is the patient's first mammogram FINDINGS: Breast Density: The breasts are almost entirely fatty. There is no evidence of dominant mass, suspicious calcifications or architectural distortion in the l eft breast. There is a 10 x 6 mm partially well-circumscribed mass in the subareolar/ 6 oclock locati on of the right breast, 6 cm from the nipple. I suspect this will either represent a fibroadenoma or intramammary lymph node, but should be further evaluated with right breast ultrasound. IMPRESSION: 10 mm right subareolar breast nodule requiring further evaluation with right breast ultra sound. No sonographic correlate is identified, spot compression imaging may also be required. BI-RADS Category 0: Incomplete. Needs additional imaging evaluation and/or prior mammograms for dino rison. A "normal" or negative report should not discourage follow up or biopsy of a clinically significant f inding. A written summary of these findings will be mailed to the patient. The patient will be entered into a mammography reporting system which will generate a reminder letter for the patient's next appointmen t at the appropriate interval. The [employer] recommends yearly mammograms starting at age 40 and continuing as l suzie as a woman is in good health. Breast MRI is recommended for women with an approximate 20-25% or greater lifetime risk of breast cancer, including women with a strong family history of breast or ova maninder cancer or who have been treated for Hodgkin's disease. Signer Name: Elsy Adler MD Signed: 03/06/2019 10:19 AM Workstation Name: [id number]
== END 2019-03-03 10:12 | disposition home or self-care (01) ==
LOC: SPVWC 10:11
PROVIDERS: ATTEND Hospitalist
DX: Z12.31 Encounter for screening mammogram for malignant neoplasm of breast (principal); I11.0 Hypertensive heart disease with heart failure; I50.9 Heart failure, unspecified; J44.9 Chronic obstructive pulmonary disease, unspecified; K21.9 Gastro-esophageal reflux disease without esophagitis; E11.9 Type 2 diabetes mellitus without complications
CPT/HCPCS: 77067

== ENCOUNTER 2019-05-02 12:54 | Emergency (ER) | payer MEDICAID ==
[2019-05-02] MEDS ORDERED: ASPIRIN 325 MG TAB PO ONE (13:17)
--- NOTE | 2019-05-02 13:17 | Event Note ---
ED Screening Note Date of service: 05/02/19 Time: 13:14 ED Screening Note: 58 y o female presents with intermittent pressure type chest pain x 5 days localized to left side This initial assessment/diagnostic orders/clinical plan/treatment(s) is/are subject to change based on patients health status, clinical progression and re- assessment by fellow clinical providers in the ED. Further treatment and workup at subsequent clinical providers discretion. Patient/guardian urged not to elope from the ED as their condition may be serious if not clinically assessed and managed. Initial orders include: labs,ekg, cxr
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
[2019-05-02 14:19] LABS: Basophils % (Auto) 0.6 % (0.0-1.8); Eosinophils % (Auto) 0.5 % (0.0-4.3); Hemoglobin 13.2 gm/dl (10.1-14.3); Lymphocytes # (Auto) 1.5 K/mm3 (1.2-5.4); Lymphocytes % (Auto) 25.2 % (13.4-35.0); Mean Corpuscular HGB Conc 33 % (30-34); Mean Corpuscular Volume 87 fl (79-97); Monocytes # (Auto) 0.3 K/mm3 (0.0-0.8); Monocytes % (Auto) 5.5 % (0.0-7.3); Platelet Count 228 K/mm3 (140-440); Red Blood Count 4.61 M/mm3 (3.65-5.03); Red Cell Distribution Width 15.1 % (13.2-15.2)
[2019-05-02 15:09] LABS: BUN/Creatinine Ratio 21; Blood Urea Nitrogen 19 mg/dL (7-17); Calcium 9.7 mg/dL (8.4-10.2); Hemolysis Index 6
[2019-05-02] MEDS ORDERED: ASPIRIN 325 MG TAB ONE (16:49)
--- NOTE | 2019-05-02 21:43 | Emergency Department Report ---
ED Chest Pain HPI - General Chief Complaint: Chest Pain Stated Complaint: CHEST PAIN Time Seen by Provider: 05/02/19 13:14 Source: patient Mode of arrival: Ambulatory Limitations: No Limitations - History of Present Illness Initial Comments: pt c/o pain to middle chest since last . pt states the pain is located in the mid chest, 4/10, sharp, without radiation. + shortness of breath and nausea. pt states the pain is worse when i lay down MD Complaint: chest pain -: Gradual Onset: during rest Pain Radiation: none Severity: mild Severity scale (0 -10): 7 Quality: sharp Consistency: intermittent - Related Data Home Medications Medication Instructions Recorded Confirmed Last Taken Clonidine HCl [Catapres] 0.3 mg PO BID 08/26/15 05/02/18 10/19/17 amLODIPine 10 mg PO DAILY 08/26/15 05/02/18 10/19/17 metFORMIN [Glucophage] 1,000 mg PO BID 08/26/15 05/02/18 10/19/17 Losartan [Cozaar] 25 mg PO QDAY 10/20/17 05/02/18 10/19/17 Triamterene/Hydrochlorothiazid 1 tab PO DAILY 10/20/17 05/02/18 10/19/17 [Triamterene-Hctz 75-50 mg Tab] Previous Rx's Medication Instructions Recorded Last Taken Type Albuterol Sulfate [Ventolin HFA] 2 puff IH Q4H PRN #1 pump 11/12/15 10/19/17 Rx Aspirin EC [Halfprin EC] 81 mg PO QDAY #30 tablet. 01/01/17 10/19/17 Rx Pantoprazole [Protonix TAB] 40 mg PO BID #30 tablet 10/20/17 Unknown Rx Cyclobenzaprine [Flexeril 10 MG 10 mg PO QHS #20 tablet 11/20/17 Unknown Rx TAB] Naproxen [Naprosyn TAB] 375 mg PO BID #20 tablet 11/20/17 Unknown Rx Aspirin 325 mg PO QDAY tablet 05/04/18 Unknown Rx Lispro Insulin [HumaLOG] 0 unit SUB-Q ACHS units 05/04/18 Unknown Rx Losartan [Cozaar] 25 mg PO QDAY tablet 05/04/18 Unknown Rx amLODIPine 10 mg PO DAILY tablet 05/04/18 Unknown Rx metFORMIN [Glucophage] 1,000 mg PO BIDDIAB tablet 05/04/18 Unknown Rx ALBUTEROL NEB's [Proventil 0.083% 2.5 mg IH Q4HR PRN #30 ml 06/27/18 Unknown Rx NEBS] Nebulizer [Aeroneb Go Nebulizer] 1 each MC Q4HR PRN #1 each 06/27/18 Unknown Rx Famotidine [Pepcid] 20 mg PO BID #30 tablet 09/16/18 Unknown Rx Ibuprofen [Motrin] 600 mg PO Q8H PRN #30 tablet 09/16/18 Unknown Rx Allergies Allergy/AdvReac Type Severity Reaction Status Date / Time acetaminophen [From Percocet] Allergy Unknown Verified 03/10/14 09:20 morphine Allergy Unknown Verified 05/19/16 12:06 oxycodone HCl [From Percocet] Allergy Unknown Verified 03/10/14 09:20 Heart Score - HEART Score History: Slightly suspicious EKG: Non-specific Age: 45-65 Risk factors: 1-2 risk factors Troponin: < normal limit HEART Score: 3 ED Review of Systems ROS: Stated complaint: CHEST PAIN Other details as noted in HPI Comment: All other systems reviewed and negative ENT: denies: ear pain Respiratory: denies: cough Cardiovascular: chest pain Gastrointestinal: denies: abdominal pain, nausea, vomiting ED Past Medical Hx - Past Medical History Previous Medical History?: Yes Hx Hypertension: Yes Hx Heart Attack/AMI: No Hx Congestive Heart Failure: Yes Hx Diabetes: Yes Hx GERD: Yes Hx Liver Disease: No Hx Renal Disease: No Hx Seizures: No Hx Asthma: Yes Hx COPD: Yes (chronic bronchitis) Additional medical history: BLOOD TRANSFUSION,anemia,C-PAP. enlarged heart. "spot on right kidney". Obstructive sleep apnea - Surgical History Past Surgical History?: Yes Hx Cholecystectomy: Yes Additional Surgical History: C section x 3, hernia repairs - Social History Smoking Status: Never Smoker Substance Use Type: None - Medications Home Medications: Home Medications Medication Instructions Recorded Confirmed Last Taken Type Clonidine HCl [Catapres] 0.3 mg PO BID 08/26/15 05/02/18 10/19/17 History amLODIPine 10 mg PO DAILY 08/26/15 05/02/18 10/19/17 History metFORMIN [Glucophage] 1,000 mg PO BID 08/26/15 05/02/18 10/19/17 History Albuterol Sulfate [Ventolin HFA] 2 puff IH Q4H PRN #1 pump 11/12/15 05/02/18 Rx Aspirin EC [Halfprin EC] 81 mg PO QDAY #30 tablet. 01/01/17 05/02/18 10/19/17 Rx Losartan [Cozaar] 25 mg PO QDAY 10/20/17 05/02/18 10/19/17 History Pantoprazole [Protonix TAB] 40 mg PO BID #30 tablet 10/20/17 05/02/18 Unknown Rx Triamterene/Hydrochlorothiazid 1 tab PO DAILY 10/20/17 05/02/18 10/19/17 History [Triamterene-Hctz 75-50 mg Tab] Cyclobenzaprine [Flexeril 10 MG 10 mg PO QHS #20 tablet 11/20/17 05/02/18 Unknown Rx TAB] Naproxen [Naprosyn TAB] 375 mg PO BID #20 tablet 11/20/17 05/02/18 Unknown Rx Aspirin 325 mg PO QDAY tablet 05/04/18 Unknown Rx Lispro Insulin [HumaLOG] 0 unit SUB-Q ACHS units 05/04/18 Unknown Rx Losartan [Cozaar] 25 mg PO QDAY tablet 05/04/18 Unknown Rx amLODIPine 10 mg PO DAILY tablet 05/04/18 Unknown Rx metFORMIN [Glucophage] 1,000 mg PO BIDDIAB tablet 05/04/18 Unknown Rx ALBUTEROL NEB's [Proventil 0.083% 2.5 mg IH Q4HR PRN #30 ml 06/27/18 Unknown Rx NEBS] Nebulizer [Aeroneb Go Nebulizer] 1 each MC Q4HR PRN #1 each 06/27/18 Unknown Rx Famotidine [Pepcid] 20 mg PO BID #30 tablet 09/16/18 Unknown Rx Ibuprofen [Motrin] 600 mg PO Q8H PRN #30 tablet 09/16/18 Unknown Rx ED Physical Exam - General Limitations: No Limitations General appearance: alert, in no apparent distress - Head Head exam: Present: atraumatic, normocephalic - Eye Eye exam: Present: normal appearance, PERRL, EOMI Pupils: Present: normal accommodation - ENT ENT exam: Present: normal exam, normal orophraynx - Neck Neck exam: Present: normal inspection - Respiratory Respiratory exam: Present: normal lung sounds bilaterally - Cardiovascular Cardiovascular Exam: Present: regular rate, normal rhythm - GI/Abdominal GI/Abdominal exam: Present: soft, normal bowel sounds - Extremities Exam Extremities exam: Present: normal inspection - Back Exam Back exam: Present: normal inspection - Neurological Exam Neurological exam: Present: alert, oriented X3, CN II-XII intact - Psychiatric Psychiatric exam: Present: normal affect, normal mood - Skin Skin exam: Present: warm ED Course Vital Signs 05/02/19 05/02/19 05/02/19 13:13 13:53 14:01 Temperature 98.8 F Pulse Rate 115 H 112 H 100 H Respiratory 16 10 L 19 Rate Blood Pressure 159/95 Blood Pressure [Left] O2 Sat by Pulse 97 98 Oximetry 05/02/19 05/02/19 05/02/19 14:15 14:31 14:45 Temperature Pulse Rate 102 H 102 H 99 H Respiratory 24 15 13 Rate Blood Pressure Blood Pressure [Left] O2 Sat by Pulse 98 98 97 Oximetry 05/02/19 05/02/19 05/02/19 15:01 15:15 15:30 Temperature Pulse Rate 95 H 94 H 94 H Respiratory 24 11 L 21 Rate Blood Pressure 144/79 152/81 Blood Pressure [Left] O2 Sat by Pulse 96 99 97 Oximetry 05/02/19 05/02/19 05/02/19 15:45 16:00 16:15 Temperature Pulse Rate 99 H 95 H 97 H Respiratory 17 24 17 Rate Blood Pressure 152/81 143/77 143/77 Blood Pressure [Left] O2 Sat by Pulse 98 97 98 Oximetry 05/02/19 05/02/19 05/02/19 16:30 16:53 17:00 Temperature Pulse Rate 99 H 122 H 97 H Respiratory 17 17 18 Rate Blood Pressure 148/85 148/85 135/80 Blood Pressure [Left] O2 Sat by Pulse 97 98 96 Oximetry 05/02/19 05/02/19 05/02/19 17:15 17:30 18:00 Temperature Pulse Rate 94 H 92 H 90 Respiratory 24 15 19 Rate Blood Pressure 135/80 144/83 147/84 Blood Pressure [Left] O2 Sat by Pulse 98 97 97 Oximetry 05/02/19 05/02/19 05/02/19 18:30 19:00 19:15 Temperature 97.9 F Pulse Rate 87 83 81 Respiratory 19 19 14 Rate Blood Pressure 147/81 147/83 Blood Pressure 132/77 [Left] O2 Sat by Pulse 96 96 98 Oximetry 05/02/19 05/02/19 05/02/19 20:00 20:30 21:00 Temperature Pulse Rate 84 84 79 Respiratory 18 12 14 Rate Blood Pressure 129/79 138/72 159/98 Blood Pressure [Left] O2 Sat by Pulse 98 97 96 Oximetry 05/02/19 21:30 Temperature Pulse Rate 73 Respiratory 11 L Rate Blood Pressure 151/75 Blood Pressure [Left] O2 Sat by Pulse Oximetry BRENNAN score - Brennan Score Age > 65: (0) No Aspirin use within the Past 7 Days: (0) No 3 or more CAD Risk Factors: (1) Yes 2 or more Angina events in past 24 hrs: (0) No Known CAD with more than 50% Stenosis: (0) No Elevated Cardiac Markers: (0) No ST Deviation Greater than 0.5mm: (0) No BRENNAN Score: 1 ED Medical Decision Making - Lab Data Result diagrams: 05/02/19 13:55 05/02/19 13:55 Critical care attestation.: If time is entered above; I have spent that time in minutes in the direct care of this critically ill patient, excluding procedure time. ED Disposition Clinical Impression: Chest pain Qualifiers: Chest pain type: other chest pain Qualified Code(s): R07.89 - Other chest pain Disposition: -01 TO HOME OR SELFCARE Is pt being admited?: No Does the pt Need Aspirin: No Condition: Stable Instructions: Chest Pain (ED) Referrals: YULIYA FLETCHER MD [Primary Care Provider] - 3-5 Days
[2019-05-02 22:02] VITALS: BP 151/75
== END 2019-05-02 22:05 | disposition home or self-care (01) ==
LOC: ED 12:54
DX: R07.89 Other chest pain (principal); I11.0 Hypertensive heart disease with heart failure; I50.9 Heart failure, unspecified; E11.9 Type 2 diabetes mellitus without complications; K21.9 Gastro-esophageal reflux disease without esophagitis; J44.9 Chronic obstructive pulmonary disease, unspecified; G47.33 Obstructive sleep apnea (adult) (pediatric); Z90.49 Acquired absence of other specified parts of digestive tract; Z88.5 Allergy status to narcotic agent; Z79.899 Other long term (current) drug therapy; Z79.84 Long term (current) use of oral hypoglycemic drugs; Z79.82 Long term (current) use of aspirin
CPT/HCPCS: 36415; 71046; 80048; 84484; 85025; 93005; 93010; 99284

== ENCOUNTER 2019-07-20 06:19 | Emergency (ER) | payer MEDICAID ==
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
[2019-07-20 06:56] LABS: Basophils % (Auto) 0.4 % (0.0-1.8); Eosinophils # (Auto) 0.1 K/mm3 (0.0-0.4); Eosinophils % (Auto) 1.2 % (0.0-4.3); Hematocrit 37.7 % (30.3-42.9); Hemoglobin 12.7 gm/dl (10.1-14.3); Lymphocytes # (Auto) 1.6 K/mm3 (1.2-5.4); Mean Corpuscular HGB Conc 34 % (30-34); Mean Corpuscular Volume 86 fl (79-97); Monocytes # (Auto) 0.3 K/mm3 (0.0-0.8); Platelet Count 193 K/mm3 (140-440); Red Blood Count 4.39 M/mm3 (3.65-5.03); Red Cell Distribution Width 14.9 % (13.2-15.2)
[2019-07-20 07:08] LABS: BUN/Creatinine Ratio 24; Blood Urea Nitrogen 19 mg/dL (7-17); Calcium 9.9 mg/dL (8.4-10.2); Hemolysis Index 9
[2019-07-20 07:10] LABS: Creatine Kinase MB 1.1 ng/mL (0.0-4.0)
[2019-07-20] MEDS ORDERED: fentaNYL 100 MCG/2 ML INJ IV ONE (07:21)
[2019-07-20] MEDS ORDERED: ONDANSETRON 4 MG/2 ML INJ IV ONE (07:21)
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
[2019-07-20 13:16] VITALS: BP 152/92
== END 2019-07-20 13:17 | disposition home or self-care (01) ==
LOC: ED 06:19
DX: R07.89 Other chest pain (principal); I11.0 Hypertensive heart disease with heart failure; I50.9 Heart failure, unspecified; E11.9 Type 2 diabetes mellitus without complications; K21.9 Gastro-esophageal reflux disease without esophagitis; J44.1 Chronic obstructive pulmonary disease with (acute) exacerbation; Z90.49 Acquired absence of other specified parts of digestive tract; Z98.890 Other specified postprocedural states; Z79.899 Other long term (current) drug therapy; Z88.6 Allergy status to analgesic agent; Z88.2 Allergy status to sulfonamides
CPT/HCPCS: 36415; 71275; 80048; 82550; 82553; 84484; 85025; 93005; 93010; 96374; 96375; 99284; J2405; J3010; Q9967

== ENCOUNTER 2020-07-16 19:56 | Observation (INO) | payer MEDICAID ==
[2020-07-16 20:47] LABS: BUN/Creatinine Ratio 22; Blood Urea Nitrogen 20 mg/dL (7-17); Calcium 9.9 mg/dL (8.4-10.2); Hemolysis Index 8
--- NOTE | 2020-07-16 20:48 | XRay Report ---
CHEST PA AND LATERAL VIEWS INDICATION: Chest Pain. COMPARISON: 05/02/2019 FINDINGS: Support devices: None. Heart: Within normal limits. Lungs/Pleura: No acute pulmonary or pleural findings. IMPRESSION: 1. No acute findings. Signer Name: Conner Linda MD Signed: 07/16/2020 8:44 PM Workstation Name: [id number]
[2020-07-16 20:52] LABS: Hemoglobin 13.1 gm/dl (10.1-14.3)
[2020-07-16 21:46] LABS: Basophils % (Auto) 0.3 % (0.0-1.8); Eosinophils # (Auto) 0.1 K/mm3 (0.0-0.4); Eosinophils % (Auto) 0.9 % (0.0-4.3); Hematocrit 38.9 % (30.3-42.9); Lymphocytes # (Auto) 2.1 K/mm3 (1.2-5.4); Lymphocytes % (Auto) 33.6 % (13.4-35.0); Mean Corpuscular HGB Conc 34 % (30-34); Mean Corpuscular Volume 87 fl (79-97); Monocytes # (Auto) 0.4 K/mm3 (0.0-0.8); Monocytes % (Auto) 6.2 % (0.0-7.3); Platelet Count 249 K/mm3 (140-440); Red Blood Count 4.45 M/mm3 (3.65-5.03); Red Cell Distribution Width 15.5 % (13.2-15.2)
[2020-07-17] MEDS ORDERED: cloNIDine 0.2 MG TAB PO ONE (02:21)
[2020-07-17] MEDS ORDERED: ONDANSETRON 4 MG/2 ML INJ IV ONE (02:31)
--- NOTE | 2020-07-17 03:31 | Emergency Department Report ---
ED General Adult HPI - General Chief complaint: Chest Pain Stated complaint: CHEST PAIN Time Seen by Provider: 07/17/20 02:03 Source: patient, old records reviewed Mode of arrival: Ambulatory Limitations: No Limitations - History of Present Illness Initial comments: 59-year-old female with a past medical history of morbid obesity, COPD, asthma, diabetes, GERD, hypertension, sleep apnea, and CHF presents to the hospital complaints of chest pain or shortness of breath the past 2 days. Yesterday a.m. on the patient woke up, took off her CPAP and had acute lightheadedness with sitting upright and feeling like she was going to pass out. States her visual field darkened but she did not lose consciousness. She is complaining of intermittent lightheadedness, nausea, shortness of breath, diaphoresis, and chest pressure. Patient also having intermittent stinging sensation to her chest with deep inspiration. She is compliant with her medications but did not take her evening clonidine 0.3 dose tonight per advice of EMS. She was provided aspirin and nitroglycerin sublingual in route to the hospital. She is compliant with her medications which include hydrochlorothiazide. She denies history of DVT, PE, smoking, recent cough, fever, and reports having a negative Covid test on July 11. As per medical record review patient had negative cardiac cath August 2015 and had a negative but poor quality exercise stress test September 2017. Patient thinks she has had a more recent negative stress test within the last year. Patient's vp genetic Dr. Turner Severity scale (0 -10): 5 - Related Data Home Medications Medication Instructions Recorded Confirmed Last Taken Clonidine HCl [Catapres] 0.3 mg PO BID 08/26/15 05/02/18 10/19/17 amLODIPine 10 mg PO DAILY 08/26/15 05/02/18 10/19/17 metFORMIN [Glucophage] 1,000 mg PO BID 08/26/15 05/02/18 10/19/17 Losartan [Cozaar] 25 mg PO QDAY 10/20/17 05/02/18 10/19/17 Triamterene/Hydrochlorothiazid 1 tab PO DAILY 10/20/17 05/02/18 10/19/17 [Triamterene-Hctz 75-50 mg Tab] Previous Rx's Medication Instructions Recorded Last Taken Type Albuterol Sulfate [Ventolin HFA] 2 puff IH Q4H PRN #1 pump 11/12/15 10/19/17 Rx Aspirin EC [Halfprin EC] 81 mg PO QDAY #30 tablet. 01/01/17 10/19/17 Rx Pantoprazole [Protonix TAB] 40 mg PO BID #30 tablet 10/20/17 Unknown Rx Cyclobenzaprine [Flexeril 10 MG 10 mg PO QHS #20 tablet 11/20/17 Unknown Rx TAB] Naproxen [Naprosyn TAB] 375 mg PO BID #20 tablet 11/20/17 Unknown Rx Aspirin 325 mg PO QDAY tablet 05/04/18 Unknown Rx Lispro Insulin [HumaLOG] 0 unit SUB-Q ACHS units 05/04/18 Unknown Rx Losartan [Cozaar] 25 mg PO QDAY tablet 05/04/18 Unknown Rx amLODIPine 10 mg PO DAILY tablet 05/04/18 Unknown Rx metFORMIN [Glucophage] 1,000 mg PO BIDDIAB tablet 05/04/18 Unknown Rx ALBUTEROL NEB's [Proventil 0.083% 2.5 mg IH Q4HR PRN #30 ml 06/27/18 Unknown Rx NEBS] Nebulizer [Aeroneb Go Nebulizer] 1 each MC Q4HR PRN #1 each 06/27/18 Unknown Rx Famotidine [Pepcid] 20 mg PO BID #30 tablet 09/16/18 Unknown Rx Ibuprofen [Motrin] 600 mg PO Q8H PRN #30 tablet 09/16/18 Unknown Rx Cyclobenzaprine [Flexeril] 10 mg PO TID PRN #14 tablet 07/20/19 Unknown Rx Ibuprofen [Motrin 800 MG tab] 800 mg PO Q8HR PRN #30 tablet 07/20/19 Unknown Rx Allergies Allergy/AdvReac Type Severity Reaction Status Date / Time acetaminophen [From Percocet] Allergy Unknown Verified 07/20/19 06:29 morphine Allergy Unknown Verified 07/20/19 06:29 oxycodone HCl [From Percocet] Allergy Unknown Verified 07/20/19 06:29 ED Review of Systems ROS: Stated complaint: CHEST PAIN Other details as noted in HPI Comment: All other systems reviewed and negative ED Past Medical Hx - Past Medical History Hx Hypertension: Yes Hx Heart Attack/AMI: No Hx Congestive Heart Failure: Yes Hx Diabetes: Yes Hx GERD: Yes Hx Liver Disease: No Hx Renal Disease: No Hx Seizures: No Hx Asthma: Yes Hx COPD: Yes (chronic bronchitis) Additional medical history: BLOOD TRANSFUSION,anemia,C-PAP. enlarged heart. "spot on right kidney". Obstructive sleep apnea - Surgical History Hx Cholecystectomy: Yes Additional Surgical History: C section x 3, hernia repairs - Social History Smoking Status: Never Smoker Substance Use Type: None - Medications Home Medications: Home Medications Medication Instructions Recorded Confirmed Last Taken Type Clonidine HCl [Catapres] 0.3 mg PO BID 08/26/15 05/02/18 10/19/17 History amLODIPine 10 mg PO DAILY 08/26/15 05/02/18 10/19/17 History metFORMIN [Glucophage] 1,000 mg PO BID 08/26/15 05/02/18 10/19/17 History Albuterol Sulfate [Ventolin HFA] 2 puff IH Q4H PRN #1 pump 11/12/15 05/02/18 10/19/17 Rx Aspirin EC [Halfprin EC] 81 mg PO QDAY #30 tablet. 01/01/17 05/02/18 10/19/17 Rx Losartan [Cozaar] 25 mg PO QDAY 10/20/17 05/02/18 10/19/17 History Pantoprazole [Protonix TAB] 40 mg PO BID #30 tablet 10/20/17 05/02/18 Unknown Rx Triamterene/Hydrochlorothiazid 1 tab PO DAILY 10/20/17 05/02/18 10/19/17 History [Triamterene-Hctz 75-50 mg Tab] Cyclobenzaprine [Flexeril 10 MG 10 mg PO QHS #20 tablet 11/20/17 05/02/18 Unknown Rx TAB] Naproxen [Naprosyn TAB] 375 mg PO BID #20 tablet 11/20/17 05/02/18 Unknown Rx Aspirin 325 mg PO QDAY tablet 05/04/18 Unknown Rx Lispro Insulin [HumaLOG] 0 unit SUB-Q ACHS units 05/04/18 Unknown Rx Losartan [Cozaar] 25 mg PO QDAY tablet 05/04/18 Unknown Rx amLODIPine 10 mg PO DAILY tablet 05/04/18 Unknown Rx metFORMIN [Glucophage] 1,000 mg PO BIDDIAB tablet 05/04/18 Unknown Rx ALBUTEROL NEB's [Proventil 0.083% 2.5 mg IH Q4HR PRN #30 ml 06/27/18 Unknown Rx NEBS] Nebulizer [Aeroneb Go Nebulizer] 1 each MC Q4HR PRN #1 each 06/27/18 Unknown Rx Famotidine [Pepcid] 20 mg PO BID #30 tablet 09/16/18 Unknown Rx Ibuprofen [Motrin] 600 mg PO Q8H PRN #30 tablet 09/16/18 Unknown Rx Cyclobenzaprine [Flexeril] 10 mg PO TID PRN #14 tablet 07/20/19 Unknown Rx Ibuprofen [Motrin 800 MG tab] 800 mg PO Q8HR PRN #30 tablet 07/20/19 Unknown Rx ED Physical Exam - General Limitations: No Limitations - Other Other exam information: General: No acute distress Head: Atraumatic Eyes: normal appearance ENT: Moist mucous membranes Neck: Normal appearance, no midline tenderness Chest: Clear to auscultation bilaterally CV: Regular rate and rhythm Abdomen: Soft, normal bowel sounds, nontender, nondistended, no rebound or guarding Back: Normal inspection Extremity: Normal inspection, full range of motion, no calf tenderness, no significant edema, no leg asymmetry Neuro: Alert O x 3, no facial asymmetry, speech clear, no gross motor sensory deficit Psych: Appropriate behavior Skin: No rash ED Course Vital Signs 07/16/20 07/17/20 07/17/20 20:04 01:49 01:50 Temperature 98.2 F Pulse Rate 99 H 94 H Respiratory 18 24 Rate Blood Pressure 197/101 172/101 172/101 O2 Sat by Pulse 97 Oximetry 07/17/20 07/17/20 07/17/20 01:51 01:52 01:55 Temperature 97.9 F Pulse Rate 96 H 95 H Respiratory 19 25 H Rate Blood Pressure 172/101 172/101 O2 Sat by Pulse 100 Oximetry 07/17/20 07/17/20 07/17/20 01:58 02:47 03:25 Temperature Pulse Rate 92 H 93 H Respiratory 20 Rate Blood Pressure 179/99 O2 Sat by Pulse 100 Oximetry ED Medical Decision Making - Lab Data Result diagrams: 07/16/20 20:09 07/16/20 20:09 Lab Results 07/16/20 07/16/20 07/16/20 Range/Units 20:09 20:09 23:08 WBC 6.3 (4.5-11.0) K/mm3 RBC 4.45 (3.65-5.03) M/mm3 Hgb 13.1 (10.1-14.3) gm/dl Hct 38.9 (30.3-42.9) % MCV 87 (79-97) fl MCH 30 (28-32) pg MCHC 34 (30-34) % RDW 15.5 H (13.2-15.2) % Plt Count 249 (140-440) K/mm3 Lymph % (Auto) 33.6 (13.4-35.0) % [place] % (Auto) 6.2 (0.0-7.3) % Eos % (Auto) 0.9 (0.0-4.3) % Baso % (Auto) 0.3 (0.0-1.8) % Lymph # (Auto) 2.1 (1.2-5.4) K/mm3 [place] # (Auto) 0.4 (0.0-0.8) K/mm3 Eos # (Auto) 0.1 (0.0-0.4) K/mm3 Baso # (Auto) 0.0 (0.0-0.1) K/mm3 Seg Neutrophils % 59.0 (40.0-70.0) % Seg Neutrophils # 3.7 (1.8-7.7) K/mm3 D-Dimer (0-234) ng/mlDDU Sodium 140 (137-145) mmol/L Potassium 3.8 (3.6-5.0) mmol/L Chloride 102.3 (98-107) mmol/L Carbon Dioxide 27 (22-30) mmol/L Anion Gap 15 mmol/L BUN 20 H (7-17) mg/dL Creatinine 0.9 (0.6-1.2) mg/dL Estimated GFR > 60 ml/min BUN/Creatinine Ratio 22 % Glucose 158 H (65-100) mg/dL Calcium 9.9 (8.4-10.2) mg/dL Troponin T < 0.010 < 0.010 (0.00-0.029) ng/mL 07/17/20 07/17/20 Range/Units 02:10 02:32 WBC (4.5-11.0) K/mm3 RBC (3.65-5.03) M/mm3 Hgb (10.1-14.3) gm/dl Hct (30.3-42.9) % MCV (79-97) fl MCH (28-32) pg MCHC (30-34) % RDW (13.2-15.2) % Plt Count (140-440) K/mm3 Lymph % (Auto) (13.4-35.0) % [place] % (Auto) (0.0-7.3) % Eos % (Auto) (0.0-4.3) % Baso % (Auto) (0.0-1.8) % Lymph # (Auto) (1.2-5.4) K/mm3 [place] # (Auto) (0.0-0.8) K/mm3 Eos # (Auto) (0.0-0.4) K/mm3 Baso # (Auto) (0.0-0.1) K/mm3 Seg Neutrophils % (40.0-70.0) % Seg Neutrophils # (1.8-7.7) K/mm3 D-Dimer 135.00 (0-234) ng/mlDDU Sodium (137-145) mmol/L Potassium (3.6-5.0) mmol/L Chloride (98-107) mmol/L Carbon Dioxide (22-30) mmol/L Anion Gap mmol/L BUN (7-17) mg/dL Creatinine (0.6-1.2) mg/dL Estimated GFR ml/min BUN/Creatinine Ratio % Glucose (65-100) mg/dL Calcium (8.4-10.2) mg/dL Troponin T < 0.010 (0.00-0.029) ng/mL - EKG Data -: EKG Interpreted by Me (Old anterior and inferior infarct, LVH) EKG shows normal: sinus rhythm, ST-T waves (No ST elevation MA) Rate: tachycardia (103) - EKG Data When compared to previous EKG there are: no significant change - Radiology Data Radiology results: report reviewed Chest x-ray: No acute findings - Medical Decision Making 59-year-old female presents to the hospital with chest pressure with associated cardiac symptoms and fatigue. Patient is a low pretest probability for pulmonary embolism with a negative D-dimer. EKG unchanged from previous. Troponin negative x3. Patient does have significant cardiac risk factors, elevated heart score, and history of CHF. Patient treated with Zofran and her evening dose of clonidine 0.3 mg in the ED. Orthostatic vital signs negative. patient will be admitted to the hospitalist service for further evaluation with cardiology consultation Critical Care Time: No Critical care attestation.: If time is entered above; I have spent that time in minutes in the direct care of this critically ill patient, excluding procedure time. ED Disposition Clinical Impression: Chest pain, Diabetes, Dyspnea, Sleep apnea, Uncontrolled hypertension, Obesities, morbid Disposition: OP ADMIT IP TO THIS HOSP Is pt being admited?: Yes Condition: Stable Instructions: Chest Pain (ED), Diabetes Mellitus Type 2 in Adults (ED), Hypertension (ED) Time of Disposition: 03:30 (Dr Amin/hospitalist) Heart Score - HEART Score History: Moderately suspicious EKG: Non-specific Age: 45-65 Risk factors: > 3 risk factors or hx of atherosclerotic disease Troponin: < normal limit HEART Score: 5
[2020-07-17] MEDS ORDERED: NITROGLYCERIN 0.4 MG TAB SUBL SL PRN (04:26)
[2020-07-17] MEDS ORDERED: ONDANSETRON 4 MG/2 ML INJ IV PRN (04:27)
--- NOTE | 2020-07-17 04:59 | History and Physical Report ---
History of Present Illness Date of examination: 07/17/20 Date of admission: 07/17/20 03:31 Chief complaint: Chief complaint is chest pain History of present illness: History of presenting illness, patient is a 59-year-old female who has been having pressure-like chest pain located in the retrosternal and precordial area, pain is sometimes stinging in nature and pleuritic. Pain has been going on for 4 days and associated with shortness of breath, nausea but no vomiting, diaphoresis, dizziness and near syncope. There is no history of fever or chills, no history of cough or body ache, patient also denied making contact with anybody with COVID-19. Past History Past Medical History: CAD, COPD, diabetes, heart failure, hypertension, other (SLEEP APNEA) Past Surgical History: cholecystectomy (SLEEP APNEA), , Other (CARDIAC CATHETERIZATION) Social history: other Family history: no significant family history Medications and Allergies Allergies Allergy/AdvReac Type Severity Reaction Status Date / Time acetaminophen [From Percocet] Allergy Unknown Verified 07/20/19 06:29 morphine Allergy Unknown Verified 07/20/19 06:29 oxycodone HCl [From Percocet] Allergy Unknown Verified 07/20/19 06:29 Home Medications Medication Instructions Recorded Confirmed Last Taken Type Clonidine HCl [Catapres] 0.3 mg PO BID 08/26/15 07/17/20 10/19/17 History metFORMIN [Glucophage] 1,000 mg PO BID 08/26/15 07/17/2018 History Albuterol Sulfate [Proventil Hfa] 6.7 gm IH Q4HR PRN 07/17/20 07/17/20 Unknown History Budesonide/Formoterol Fumarate 10.2 gm IH BID 07/17/20 07/17/20 Unknown History [Symbicort 160-4.5 Mcg Inhaler] Losartan [Cozaar] 50 mg PO QDAY 07/17/20 07/17/20 Unknown History Triamterene/Hydrochlorothiazid 1 each PO QAM 07/17/20 07/17/20 Unknown History [Triamterene-Hctz 37.5-25 mg Cp] dilTIAZem HCl [Diltiazem 24Hr ER 240 mg PO BID 07/17/20 07/17/20 Unknown History (Cd)] Active Meds: Active Medications Aspirin (Aspirin 325 Mg Tab) 325 mg PO QDAY [facility] Heparin Sodium (Porcine) (Heparin 5,000 Unit/1 Ml Vial) 5,000 unit SUB-Q Q12HR [facility] Nitroglycerin (Nitroglycerin 2% Oint 1 Gm) 0.5 inch TP QIDNTG [facility]; Protocol Nitroglycerin (Nitroglycerin 0.4 Mg Tab Subl) 0.4 mg SL .Q5MIN PRN PRN Reason: Chest Pain Ondansetron HCl (Ondansetron 4 Mg/2 Ml Inj) 4 mg IV Q8H PRN PRN Reason: Nausea And Vomiting Review of Systems Constitutional: sweats, weakness, no fever, no chills, no fatigue, no malaise, no lethargy Eyes: bilateral: other (NO BILATERAL EYE SYMPTOMS) Ears, nose, mouth and throat: no ear pain Breasts: deferred Cardiovascular: chest pain, lightheadedness, shortness of breath, no palpitations, no rapid/irregular heart beat Respiratory: shortness of breath, no cough, no cough with sputum, no excessive sputum, no dyspnea on exertion Gastrointestinal: nausea, no vomiting, no diarrhea, no constipation, no change in bowel habits, no hematemesis Rectal: no pain Musculoskeletal: no neck stiffness, no neck pain, no shooting arm pain, no low back pain Integumentary: no rash, no pruritis, no redness, no sores Neurological: weakness, no parathesias, no numbness, no tingling, no seizures, no syncope, no tremors, no ataxia, no vertigo, no headaches Psychiatric: no anxiety, no insomnia, no hypersomnia, no hallucinations, no confusion Endocrine: no polydipsia, no polyuria, no nocturia, no excessive sweating Hematologic/Lymphatic: no easy bruising Exam - Constitutional Vitals: Temp Pulse Resp BP Pulse Ox 97.9 F 93 H 20 179/99 100 07/17/20 01:55 07/17/20 03:25 07/17/20 01:58 07/17/20 02:47 07/17/20 01:58 General appearance: Present: mild distress - EENT Eyes: Present: PERRL, EOM intact ENT: hearing intact, clear oral mucosa - Neck Neck: Present: supple, normal ROM - Respiratory Respiratory effort: normal - Cardiovascular Rhythm: regular Heart Sounds: Present: S1 & S2. Absent: gallop, systolic murmur, diastolic murmur, click - Extremities Extremities: no ischemia, No edema Peripheral Pulses: within normal limits - Abdominal General gastrointestinal: Present: soft, non-tender, non-distended. Absent: tender, distended, rigid, normal bowel sounds Female genitourinary: Present: deferred - Rectal Rectal Exam: deferred - Integumentary Integumentary: Present: clear, warm, dry. Absent: erythema, jaundice, rash, clammy - Musculoskeletal Musculoskeletal: generalized weakness - Psychiatric Psychiatric: appropriate mood/affect HEART Score - HEART Score EKG: Non-specific Age: 45-65 Risk factors: > 3 risk factors or hx of atherosclerotic disease Troponin: Troponin T < 0.010 ng/mL (0.00-0.029) 07/17/20 02:10 Troponin: < normal limit - Critical Actions Critical Actions: 4-6 pts:12-16.6% risk of adverse cardiac event. Should be admitted (PATIENT BEING WORKED UP FOR CHEST PAIN) Results - Labs CBC & Chem 7: 07/16/20 20:09 07/16/20 20:09 Labs: Laboratory Last Values WBC 6.3 K/mm3 (4.5-11.0) 07/16/20 20: RBC 4.45 M/mm3 (3.65-5.03) 07/16/20 20: Hgb 13.1 gm/dl (10.1-14.3) 07/16/20 20: Hct 38.9 % (30.3-42.9) 07/16/20 20: MCV 87 fl (79-97) 07/16/20 20: MCH 30 pg (28-32) 07/16/20 20: MCHC 34 % (30-34) 07/16/20 20: RDW 15.5 % (13.2-15.2) H 07/16/20 20: Plt Count 249 K/mm3 (140-440) 07/16/20 20: Lymph % (Auto) 33.6 % (13.4-35.0) 07/16/20 20: [place] % (Auto) 6.2 % (0.0-7.3) 07/16/20 20: Eos % (Auto) 0.9 % (0.0-4.3) 07/16/20 20:09 Baso % (Auto) 0.3 % (0.0-1.8) 07/16/20 20:09 Lymph # (Auto) 2.1 K/mm3 (1.2-5.4) 07/16/20 20:09 [place] # (Auto) 0.4 K/mm3 (0.0-0.8) 07/16/20 20:09 Eos # (Auto) 0.1 K/mm3 (0.0-0.4) 07/16/20 20:09 Baso # (Auto) 0.0 K/mm3 (0.0-0.1) 07/16/20 20:09 Seg Neutrophils % 59.0 % (40.0-70.0) 07/16/20 20:09 Seg Neutrophils # 3.7 K/mm3 (1.8-7.7) 07/16/20 20:09 D-Dimer 135.00 ng/mlDDU (0-234) 07/17/20 02:32 Sodium 140 mmol/L (137-145) 07/16/20 20:09 Potassium 3.8 mmol/L (3.6-5.0) 07/16/20 20:09 Chloride 102.3 mmol/L (98-107) 07/16/20 20:09 Carbon Dioxide 27 mmol/L (22-30) 07/16/20 20:09 Anion Gap 15 mmol/L 07/16/20 20:09 BUN 20 mg/dL (7-17) H 07/16/20 20:09 Creatinine 0.9 mg/dL (0.6-1.2) 07/16/20 20:09 Estimated GFR > 60 ml/min 07/16/20 20:09 BUN/Creatinine Ratio 22 % 07/16/20 20:09 Glucose 158 mg/dL (65-100) H 07/16/20 20:09 Calcium 9.9 mg/dL (8.4-10.2) 07/16/20 20:09 Troponin T < 0.010 ng/mL (0.00-0.029) 07/17/20 02:10 [place]/IV: IV Catheter Type [Right INT / Saline Lock Forearm] Assessment and Plan - Patient Problems (1) Dizziness Current Visit: Yes Status: Acute Plan to address problem: 1. OXYGEN BY NASAL CANNULAR (2) Chest pain Current Visit: Yes Status: Acute Qualifiers: Plan to address problem: 1. TELEMETRY OBSERVATION 2. SERIAL CARDIAC ENZYMES 3. CARDIOLOGY CONSULT 4. LEXISCAN STRESS TEST 5. ASPIRIN PO 6. NITROPASTE 7. ZOFRAN FOR NAUSEA AND VOMITING 8. NPO 9 OXYGEN BY NASAL CANNULA (3) Sleep apnea Current Visit: Yes Status: Acute Plan to address problem: C-PAP USE AT BED TIME (4) Type 2 diabetes mellitus Current Visit: No Status: Chronic Qualifiers: Diabetes mellitus terminal superintendent insulin use: without intermediate use Plan to address problem: ACCUCHECK AND SLIDING SCALE INSULUN COVERAGE
[2020-07-17 05:52] LABS: Creatine Kinase MB < 1.0 ng/mL (0.0-4.0)
[2020-07-17] MEDS: NITROGLYCERIN 2% OINT 1 GM TP SCH ×4 (06:30→19:28)
--- NOTE | 2020-07-17 10:31 | Consultation ---
History of Present Illness Consult date: 07/17/20 Consult reason: chest pain History of present illness: This is a 59-year old woman admitted with atypical chest pain and uncontrolled hypertension. Systolic BP 197 on initial workup in the emergency department. Patient reports Losartan was increased from 50 mg to 100 mg by her echocardiographer but states the pharmacist told her it was too early to fill the prescription. Chest x-ray was negative and cardiac isoenzyme were negative. ECG was sinus rhythm, no acute ST or T wave changes. There is no history of coronary artery disease. In 2016 a cardiac catheterization was normal. Stress thallium test in 2018 and again 2 months ago were also normal. She takes Diltiazem for paroxysmal SVT. Patient denies palpitations and there were no report of unusual shortness of breath. Co- morbidities includes Diabetes, COPD, sleep apnea and obesity. Past History Past Medical History: COPD, diabetes, hypertension, other (SLEEP APNEA) Past Surgical History: cholecystectomy (SLEEP APNEA), Social history: other Family history: no significant family history Medications and Allergies Allergies Allergy/AdvReac Type Severity Reaction Status Date / Time acetaminophen [From Percocet] Allergy Unknown Verified 07/20/19 06:29 morphine Allergy Unknown Verified 07/20/19 06:29 oxycodone HCl [From Percocet] Allergy Unknown Verified 07/20/19 06:29 Home Medications Medication Instructions Recorded Confirmed Last Taken Type Clonidine HCl [Catapres] 0.3 mg PO BID 08/26/15 07/17/20 10/19/17 History metFORMIN [Glucophage] 1,000 mg PO BID 08/26/15 07/17/20 10/19/17 History Albuterol Sulfate [Proventil Hfa] 6.7 gm IH Q4HR PRN 07/17/20 07/17/20 Unknown History Budesonide/Formoterol Fumarate 10.2 gm IH BID 07/17/20 07/17/20 Unknown History [Symbicort 160-4.5 Mcg Inhaler] Losartan [Cozaar] 50 mg PO QDAY 07/17/20 07/17/20 Unknown History Triamterene/Hydrochlorothiazid 1 each PO QAM 07/17/20 07/17/20 Unknown History [Triamterene-Hctz 37.5-25 mg Cp] dilTIAZem HCl [Diltiazem 24Hr ER 240 mg PO BID 07/17/20 07/17/20 Unknown History (Cd)] Active Meds: Active Medications Aspirin (Aspirin 325 Mg Tab) 325 mg PO QDAY [facility] Heparin Sodium (Porcine) (Heparin 5,000 Unit/1 Ml Vial) 5,000 unit SUB-Q Q12HR [facility] Nitroglycerin (Nitroglycerin 2% Oint 1 Gm) 0.5 inch TP QIDNTG [facility]; Protocol Last Admin: 07/17/20 06:30 Dose: 0.5 inch Documented by: Nitroglycerin (Nitroglycerin 0.4 Mg Tab Subl) 0.4 mg SL .Q5MIN PRN PRN Reason: Chest Pain Ondansetron HCl (Ondansetron 4 Mg/2 Ml Inj) 4 mg IV Q8H PRN PRN Reason: Nausea And Vomiting Last Admin: 07/17/20 06:31 Dose: 4 mg Documented by: Valsartan (Valsartan 160mg Tab) 160 mg PO DAILY [facility] Review of Systems Cardiovascular: chest pain, high blood pressure, no orthopnea, no palpitations, no rapid/irregular heart beat, no edema, no shortness of breath Physical Examination Vital Signs Temp Pulse Resp BP Pulse Ox 98.2 F 99 H 18 197/101 97 07/16/20 20:04 07/16/20 20:04 07/16/20 20:04 07/16/20 20:04 07/16/20 20:04 General appearance: no acute distress, obese HEENT: Positive: PERRL Neck: Positive: trachea midline Cardiac: Positive: Reg Rate and Rhythm Lungs: Positive: Decreased Breath Sounds Neuro: Positive: Grossly Intact Results 07/16/20 20:09 07/16/20 20:09 Cardiac Enzymes 07/17/20 Range/Units 05:12 CK-MB (CK-2) < 1.0 (0.0-4.0) ng/mL CBC 07/16/20 Range/Units 20:09 WBC 6.3 (4.5-11.0) K/mm3 RBC 4.45 (3.65-5.03) M/mm3 Hgb 13.1 (10.1-14.3) gm/dl Hct 38.9 (30.3-42.9) % Plt Count 249 (140-440) K/mm3 Lymph # (Auto) 2.1 (1.2-5.4) K/mm3 [place] # (Auto) 0.4 (0.0-0.8) K/mm3 Eos # (Auto) 0.1 (0.0-0.4) K/mm3 Baso # (Auto) 0.0 (0.0-0.1) K/mm3 Comprehensive Metabolic Panel 07/16/20 Range/Units 20:09 Sodium 140 (137-145) mmol/L Potassium 3.8 (3.6-5.0) mmol/L Chloride 102.3 (98-107) mmol/L Carbon Dioxide 27 (22-30) mmol/L BUN 20 H (7-17) mg/dL Creatinine 0.9 (0.6-1.2) mg/dL Glucose 158 H (65-100) mg/dL Calcium 9.9 (8.4-10.2) mg/dL Assessment and Plan Uncontrolled Hypertension Atypical chest pain normal MPI 04/2020 normal MPI 09/2017 normal LVEF on echo 12/2016 no significant CAD on [facility] 08/2015 Paroxysmal SVT -on Diltiazem for suppression COPD Hypertension Obesity Sleep apnea Recommendations: Resume medical therapy for paroxysmal SVT and Hypertension. Will discontinue Losartan and replace with Valsartan 160 mg daily for optimal BP management. Otherwise no further cardiac workup indicated.
[2020-07-17] MEDS ORDERED: MECLIZINE 25 MG TAB PO PRN (11:37)
--- NOTE | 2020-07-17 11:43 | Event Note ---
Date: 07/17/20 Brief progress note Patient seen and examined Lab results reviewed Cardiology note reviewed Complains of feeling dizzy when she bends or upon lying down in the bed Start on meclizine Clinically no focal deficit NIHSS 0 Possible discharge tomorrow if dizziness improves
[2020-07-17] MEDS: VALSARTAN 160MG TAB PO SCH (11:51)
[2020-07-17] MEDS: ASPIRIN 325 MG TAB PO SCH (11:51)
[2020-07-17] MEDS: cloNIDine 0.2 MG TAB PO SCH ×2 (12:00→21:08)
[2020-07-17] MEDS: TRIAMTER/HCTZ 37.5-25 MG TAB PO SCH (12:00)
[2020-07-17] MEDS: dilTIAZem CD 240 MG CAP PO SCH (12:00)
[2020-07-17] MEDS: HEPARIN 5,000 UNIT/1 ML VIAL SUB-Q SCH ×2 (12:01→21:08)
[2020-07-17 21:31] LABS: Bacteria,Urine 1+ /HPF (Negative); Bilirubin,Urine NEG (Negative); Blood,Urine NEG (Negative); Color,Urine Yellow (Yellow); Protein,Urine <15 mg/dL mg/dL (Negative); Urobilinogen,Urine < 2.0 mg/dL (<2.0)
[2020-07-17] MEDS: ARFORMOTEROL 15 MCG/2 ML NEBU IH SCH (21:53)
[2020-07-17] MEDS: BUDESONIDE 0.5 MG/2 ML NEBU IH SCH (21:53)
[2020-07-17] MEDS ORDERED: NON-FORMULARY EACH (Budesonide/Formoterol Fumarate [Symbicort 160-4.5 Mcg Inhaler] 10.2 GM IH SCH (22:00)
[2020-07-18] MEDS: NITROGLYCERIN 2% OINT 1 GM TP SCH ×2 (05:38→09:55)
[2020-07-18] MEDS: ARFORMOTEROL 15 MCG/2 ML NEBU IH SCH (08:20)
[2020-07-18] MEDS: BUDESONIDE 0.5 MG/2 ML NEBU IH SCH (08:20)
[2020-07-18] MEDS: VALSARTAN 160MG TAB PO SCH (09:54)
[2020-07-18] MEDS: TRIAMTER/HCTZ 37.5-25 MG TAB PO SCH (10:00)
[2020-07-18] MEDS: ASPIRIN 325 MG TAB PO SCH (10:00)
[2020-07-18] MEDS: dilTIAZem CD 240 MG CAP PO SCH (10:01)
[2020-07-18] MEDS: cloNIDine 0.2 MG TAB PO SCH (10:02)
[2020-07-18] MEDS: HEPARIN 5,000 UNIT/1 ML VIAL SUB-Q SCH (10:03)
--- NOTE | 2020-07-18 10:26 | Discharge Summary ---
Providers - Providers Date of Admission: 07/17/20 03:31 Attending physician: JEFF DAVALOS MD 07/17/20 03:29 Consult to Physician [CONS] Urgent Comment: Consulting Provider: BRI GENAO Physician Instructions: Reason For Exam: chest pain Primary care physician: GROUNDS MANAGER Hospitalization Reason for admission: Hypertensive urgency Condition: Stable Hospital course: Patient is a 59-year-old woman admitted with uncontrolled hypertension and chest pain. She describes to me that the primary reason she came to the hospital was because her blood pressure remained uncontrolled on her home monitor. On presentation here, systolic blood pressure was 197. Recently, she states that her primary outpatient device processing engineer increased her losartan from 50 to 100 mg in response to uncontrolled hypertension. With regards to the chest pain, there was poorly characterized, nonexertional musculoskeletal type chest pain which has now resolved. ECG in the hospital is normal sinus rhythm, left ventricular hypertrophy by voltage criteria, no ST or T wave changes, no change from previous ECG. Chest x-ray reveals normal-sized cardiac silhouette and clear lungs. She has had extensive previous cardiac ischemic work-up including a normal cardiac catheterization in 2016, negative thallium stress test in 2018 and another negative thallium stress test just 2 months ago. Medications include diltiazem which is indicated for a reported history of paroxysmal supraventricular tachycardia. Recommendations: We will discontinue losartan, and switch to valsartan 160 mg daily for optimal blood pressure management. Otherwise no further cardiac work-up, patient is stable for cardiac discharge and follow-up with her primary device processing engineer. Normal etiology was noted her. Recommendation as noted above by cardiology discussed with the patient in detail. Patient clinically is improving at this time. Hypertensive urgency Near syncope secondary to hypertensive urgency History of paroxysmal supraventricular tachycardia Atypical chest pain likely costochondritis Morbid obesity Obstructive sleep apnea Diabetes mellitus Disposition: DC-01 TO HOME OR SELFCARE Time spent for discharge: 35 minutes Core Measure Documentation - Palliative Care Palliative Care/ Comfort Measures: Not Applicable - Core Measures Any of the following diagnoses?: none Exam - Physical Exam Narrative exam: VITAL SIGNS: Reviewed. GENERAL: The patient appears normally developed, morbidly obese vital signs as documented. HEAD: No signs of head trauma. EYES: Pupils are equal. Extraocular motions intact. EARS: Hearing grossly intact. MOUTH: Oropharynx is normal. NECK: No adenopathy, no JVD. CHEST: Chest with clear breath sounds bilaterally. No wheezes, rales, or rhonchi. CARDIAC: Regular rate and rhythm. S1 and S2, without murmurs, gallops, or rubs. VASCULAR: No Edema. Peripheral pulses normal and equal in all extremities. ABDOMEN: Soft, non tender and non distended. No rebound or guarding, and no masses palpated. Bowel Sounds normal. MUSCULOSKELETAL: Good range of motion of all major joints. Extremities without clubbing, cyanosis or edema. NEUROLOGIC EXAM: Alert and oriented x 3 No focal sensory or strength deficits. Speech normal. Follows commands. PSYCHIATRIC: Mood normal. SKIN: detail exam as documented in skin assessment - Constitutional Vitals: Temp Pulse Resp BP Pulse Ox 98.2 F 82 18 141/79 98 07/18/20 08:35 07/18/20 10:02 07/18/20 08:35 07/18/20 08:35 07/18/20 08:35 Plan Activity: advance as tolerated, fall precautions Diet: low fat, low salt, other (Weight loss counseling recommended) Special Instructions: record daily weights, record daily BP diary Follow up with: PRIMARY MD ZANE [Primary Care Provider] - 7 Days MARISOL CASTLE MD [Staff Physician] - 7 Days Prescriptions: Valsartan [Diovan] 160 mg PO DAILY #30 tablet
--- NOTE | 2020-07-18 10:45 | Progress Note ---
Assessment and Plan Uncontrolled Hypertension -improved Atypical chest pain normal MPI 04/2020 normal MPI 09/2017 normal LVEF on echo 12/2016 no significant CAD on LHC 08/2015 Paroxysmal SVT -on Diltiazem for suppression COPD Hypertension Obesity Sleep apnea Recommendations: Continue medical therapy for paroxysmal SVT and Hypertension. Continue Valsartan 160 mg daily for optimal BP management. Otherwise no further cardiac workup indicated. Patient is stable for cardiac discharge and follow-up with her primary electrical engineering draftsperson. Subjective Date of service: 07/18/20 Interval history: Patient has no complaints. Blood pressure has improved since changing Losartan to Valsartan. Objective Vital Signs Temp Pulse Pulse Pulse Resp Resp BP 07/18/20 10:02 82 07/18/20 10:01 82 07/18/20 09:55 82 07/18/20 09:54 82 07/18/20 08:35 98.2 F 74 18 141/79 07/18/20 08:00 70 19 07/18/20 05:38 71 103/53 07/18/20 04:10 97.5 F L 71 16 103/53 07/18/20 00:01 97.7 F 71 14 111/59 07/17/20 22:00 93 H 16 07/17/20 21:08 93 H 122/56 07/17/20 20:06 88 07/17/20 19:46 98.1 F 93 H 14 122/56 07/17/20 19:28 92 H 07/17/20 16:36 98.0 F 79 18 123/83 07/17/20 16:14 81 106/70 07/17/20 16:09 97.7 F 78 16 07/17/20 12:47 75 07/17/20 12:00 87 07/17/20 11:51 87 07/17/20 11:49 84 BP Pulse Ox 07/18/20 10:02 07/18/20 10:01 07/18/20 09:55 07/18/20 09:54 07/18/20 08:35 98 07/18/20 08:00 07/18/20 05:38 07/18/20 04:10 97 07/18/20 00:01 96 07/17/20 22:00 95 07/17/20 21:08 07/17/20 20:06 12/16/20 19:46 95 07/17/20 19:28 07/17/20 16:36 96 07/17/20 16:14 07/17/20 16:09 105/70 97 07/17/20 12:47 07/17/20 12:00 07/17/20 11:51 07/17/20 11:49 - Physical Examination General: No Apparent Distress HEENT: Positive: PERRL Neck: Positive: trachea midline Cardiac: Positive: Reg Rate and Rhythm Lungs: Positive: Decreased Breath Sounds Neuro: Positive: Grossly Intact - Labs and Meds Cardiac Enzymes 07/17/20 Range/Units 13:49 CK-MB (CK-2) 1.0 (0.0-4.0) ng/mL
[2020-07-18 12:42] VITALS: BP 101/61
== END 2020-07-18 15:40 | disposition home or self-care (01) ==
LOC: ED 19:56 → 4A 07-17 03:31
PROVIDERS: ADMIT Internal Medicine; ATTEND Internal Medicine
DX: I11.0 Hypertensive heart disease with heart failure (principal); I50.9 Heart failure, unspecified; J44.9 Chronic obstructive pulmonary disease, unspecified; I47.1 Supraventricular tachycardia; I25.10 Atherosclerotic heart disease of native coronary artery without angina pectoris; K21.9 Gastro-esophageal reflux disease without esophagitis; G47.33 Obstructive sleep apnea (adult) (pediatric); E11.9 Type 2 diabetes mellitus without complications; E66.01 Morbid (severe) obesity due to excess calories; R06.00 Dyspnea, unspecified; R42 Dizziness and giddiness; Z90.49 Acquired absence of other specified parts of digestive tract; Z98.891 History of uterine scar from previous surgery; Z98.61 Coronary angioplasty status; Z79.82 Long term (current) use of aspirin; Z79.4 Long term (current) use of insulin; Z68.43 Body mass index [BMI] 50.0-59.9, adult
CPT/HCPCS: 36415; 71045; 80048; 81001; 82550; 82553; 82962; 84484; 85025; 85379; 87641; 93005; 94640; 96372; 96374; 96376; 99285; G0378; J1644; J2405

== ENCOUNTER 2020-10-19 12:38 | Emergency (ER) | payer MEDICAID ==
--- NOTE | 2020-10-19 13:09 | Event Note ---
ED Screening Note ED Screening Note: +SOB that began a week ago +cough +CP +headache +nausea no fever, vomiting, diarrhea no sick contacts no recent travel no recent surgery PMHx sleep apnea on CPAP, asthma/bronchitis, renal cyst, DM, CHF allergy: oxycodone, morphine This initial assessment/diagnostic orders/clinical plan/treatment(s) is/are subject to change based on patients health status, clinical progression and re- assessment by fellow clinical providers in the ED. Further treatment and workup at subsequent clinical providers discretion. Patient/guardian urged not to elope from the ED as their condition may be serious if not clinically assessed and managed. Initial orders include: CP protocol
[2020-10-19 13:35] LABS: Basophils % (Auto) 0.5 % (0.0-1.8); Eosinophils % (Auto) 0.7 % (0.0-4.3); Hematocrit 39.6 % (30.3-42.9); Hemoglobin 13.1 gm/dl (10.1-14.3); Lymphocytes # (Auto) 1.8 K/mm3 (1.2-5.4); Lymphocytes % (Auto) 27.5 % (13.4-35.0); Mean Corpuscular HGB Conc 33 % (30-34); Mean Corpuscular Volume 89 fl (79-97); Monocytes # (Auto) 0.4 K/mm3 (0.0-0.8); Monocytes % (Auto) 6.2 % (0.0-7.3); Platelet Count 252 K/mm3 (140-440); Red Blood Count 4.44 M/mm3 (3.65-5.03); Red Cell Distribution Width 15.1 % (13.2-15.2)
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
[2020-10-19 13:57] LABS: Alanine Aminotransferase 11 units/L (7-56); BUN/Creatinine Ratio 28; Blood Urea Nitrogen 25 mg/dL (7-17); Calcium 9.5 mg/dL (8.4-10.2); Hemolysis Index 18
--- NOTE | 2020-10-19 16:02 | Emergency Department Report ---
ED Chest Pain HPI - General Chief Complaint: Chest Pain Stated Complaint: CHEST PAIN/DIZZY/HEADACHE Time Seen by Provider: 10/19/20 13:07 Source: patient Mode of arrival: Ambulatory Limitations: No Limitations - History of Present Illness Initial Comments: 59-year-old female, history of asthma, diabetes, hypertension, CHF, sleep apnea (CPAP at night), presents to ED with complaint of chest pain x1 week. Patient states pain is left-sided, feels like tightness and soreness. She reports some associated dyspnea on exertion as well. Patient states this pain has been intermittent x1 week. Patient reports she experiences the pain with exertion and also at rest. States it lasts for approximately 60 seconds and then resolves. Patient denies any chest pain at this time. She reports associated nausea and headache. Patient denies vomiting, diarrhea, cough, fever, loss of smell or taste. Patient believes her symptoms may possibly be due to her asthma and the pollen. States she has been using her inhalers at home. Patient does not have a nebulizer machine at home. Has appointment with her wall attendant early next month. Crdiology: [facility] Complaint: chest pain -: week(s) (1) Onset: during rest Pain Location: left chest Pain Radiation: none Severity: moderate Quality: tightness Consistency: intermittent Improves With: nothing Worsens With: nothing, exertion re: nausea, dyspnea. denies: vomting, diaphoresis Other Symptoms: denies: cough, fever, leg swelling Treatments Prior to Arrival: none - Related Data Home Medications Medication Instructions Recorded Confirmed Last Taken cloNIDine HCL [Catapres] 0.3 mg PO BID 08/26/15 07/17/20 10/19/17 metFORMIN [Glucophage] 1,000 mg PO BID 08/26/15 07/17/20 10/19/17 Albuterol Sulfate [Proventil Hfa] 6.7 gm IH Q4HR PRN 07/17/20 07/17/20 Unknown Budesonide/Formoterol Fumarate 10.2 gm IH BID 07/17/20 07/17/20 Unknown [Symbicort 160-4.5 Mcg Inhaler] Triamterene/Hydrochlorothiazid 1 each PO QAM 07/17/20 07/17/20 Unknown [Triamterene-Hctz 37.5-25 mg Cp] dilTIAZem HCl [Diltiazem 24Hr ER 240 mg PO BID 07/17/20 07/17/20 Unknown (Cd)] Previous Rx's Medication Instructions Recorded Last Taken Type Valsartan [Diovan] 160 mg PO DAILY #30 tablet 07/18/20 Unknown Rx Allergies Allergy/AdvReac Type Severity Reaction Status Date / Time acetaminophen [From Percocet] Allergy Unknown Verified 07/20/19 06:29 morphine Allergy Unknown Verified 07/20/19 06:29 oxycodone HCl [From Percocet] Allergy Unknown Verified 07/20/19 06:29 Heart Score - HEART Score History: Slightly suspicious EKG: Normal Age: 45-65 Risk factors: > 3 risk factors or hx of atherosclerotic disease Troponin: < normal limit HEART Score: 3 ED Review of Systems ROS: Stated complaint: CHEST PAIN/DIZZY/HEADACHE Other details as noted in HPI Comment: All other systems reviewed and negative Constitutional: denies: chills, fever Respiratory: SOB with exertion. denies: cough Cardiovascular: chest pain Gastrointestinal: nausea. denies: vomiting Musculoskeletal: other (Denies leg pain or swelling) ED Past Medical Hx - Past Medical History Previous Medical History?: Yes Hx Hypertension: Yes Hx Heart Attack/AMI: No Hx Congestive Heart Failure: Yes Hx Diabetes: Yes Hx GERD: Yes Hx Liver Disease: No Hx Renal Disease: No Hx Seizures: No Hx Asthma: Yes Hx COPD: Yes (chronic bronchitis) Additional medical history: BLOOD TRANSFUSION,anemia,C-PAP. enlarged heart. "spot on right kidney". Obstructive sleep apnea - Surgical History Past Surgical History?: Yes Hx Cholecystectomy: Yes Additional Surgical History: C section x 3, hernia repairs - Social History Smoking Status: Never Smoker Substance Use Type: None - Medications Home Medications: Home Medications Medication Instructions Recorded Confirmed Last Taken Type cloNIDine HCL [Catapres] 0.3 mg PO BID 08/26/15 07/17/20 10/19/17 History metFORMIN [Glucophage] 1,000 mg PO BID 08/26/15 07/17/20 10/19/17 History Albuterol Sulfate [Proventil Hfa] 6.7 gm IH Q4HR PRN 07/17/20 07/17/20 Unknown History Budesonide/Formoterol Fumarate 10.2 gm IH BID 07/17/20 07/17/20 Unknown History [Symbicort 160-4.5 Mcg Inhaler] Triamterene/Hydrochlorothiazid 1 each PO QAM 07/17/20 07/17/20 Unknown History [Triamterene-Hctz 37.5-25 mg Cp] dilTIAZem HCl [Diltiazem 24Hr ER 240 mg PO BID 07/17/20 07/17/20 Unknown History (Cd)] Valsartan [Diovan] 160 mg PO DAILY #30 tablet 07/18/20 Unknown Rx ED Physical Exam - General Limitations: No Limitations General appearance: alert, in no apparent distress, obese - Head Head exam: Present: atraumatic, normocephalic - Eye Eye exam: Present: normal appearance, EOMI - ENT ENT exam: Present: mucous membranes moist - Neck Neck exam: Present: normal inspection - Respiratory Respiratory exam: Present: normal lung sounds bilaterally, chest wall tenderness. Absent: respiratory distress - Cardiovascular Cardiovascular Exam: Present: regular rate, normal rhythm - GI/Abdominal GI/Abdominal exam: Present: soft. Absent: distended, tenderness - Extremities Exam Extremities exam: Present: normal inspection. Absent: pedal edema, calf tenderness - Neurological Exam Neurological exam: Present: alert, oriented X3 - Psychiatric Psychiatric exam: Present: normal affect, normal mood - Skin Skin exam: Present: warm, dry, intact, normal color ED Course Vital Signs 10/19/20 10/19/20 10/19/20 12:43 16:00 16:16 Temperature 98 F Pulse Rate 118 H 96 H 101 H Respiratory 16 17 23 Rate Blood Pressure 171/90 147/84 O2 Sat by Pulse 96 98 98 Oximetry 10/19/20 10/19/20 16:30 16:46 Temperature Pulse Rate 105 H 95 H Respiratory 18 20 Rate Blood Pressure 147/84 145/81 O2 Sat by Pulse 98 98 Oximetry IDRIS score - Idris Score Age > 65: (0) No Aspirin use within the Past 7 Days: (0) No 3 or more CAD Risk Factors: (1) Yes 2 or more Angina events in past 24 hrs: (0) No Known CAD with more than 50% Stenosis: (0) No Elevated Cardiac Markers: (0) No ST Deviation Greater than 0.5mm: (0) No IDRIS Score: 1 ED Medical Decision Making - Lab Data Result diagrams: 10/19/20 13:13 10/19/20 13:13 - EKG Data -: EKG Interpreted by Me EKG shows normal: sinus rhythm, axis, intervals, QRS complexes, ST-T waves Rate: normal - EKG Data When compared to previous EKG there are: no significant change Interpretation: no acute changes, other (old inferior infarct) - Radiology Data Radiology results: report reviewed, image reviewed - Medical Decision Making 59-year-old female presents to ED with complaint of intermittent chest pain x1 week, lasting 60 seconds at a time, occurring during rest and exertion. Patient reports some associated shortness of breath as well. Lung sounds are clear. Chest x-ray is unremarkable. EKG shows no ST changes. Troponin negative x2. Patient had negative stress test in April 2020 and normal cardiac cath in 2015. Patient has a HEART score of 3. Patient is chest pain-free. I do not believe that patient requires admission at this time. Patient had a recent admission for chest pain in July 2020, no intervention was necessary at that time. Patient advised to follow-up with her color mixer. Return precautions given. - Differential Diagnosis ACS, atypical chest pain, pneumonia, asthma Critical care attestation.: If time is entered above; I have spent that time in minutes in the direct care of this critically ill patient, excluding procedure time. ED Disposition Clinical Impression: Chest pain Disposition: DC-01 TO HOME OR SELFCARE Is pt being admited?: No Condition: Stable Instructions: Nonspecific Chest Pain, Adult Referrals: PRIMARY CARE, [Primary Care Provider] - 3-5 Days Time of Disposition: 16:36
[2020-10-19 16:59] VITALS: BP 145/81
--- NOTE | 2020-10-20 14:02 | Electrocardiograph Report ---
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
== END 2020-10-19 17:12 | disposition home or self-care (01) ==
LOC: ED 12:38
DX: R07.89 Other chest pain (principal); R06.00 Dyspnea, unspecified; I11.0 Hypertensive heart disease with heart failure; I50.9 Heart failure, unspecified; E11.9 Type 2 diabetes mellitus without complications; K21.9 Gastro-esophageal reflux disease without esophagitis; J44.9 Chronic obstructive pulmonary disease, unspecified; Z90.49 Acquired absence of other specified parts of digestive tract; Z98.890 Other specified postprocedural states; Z79.84 Long term (current) use of oral hypoglycemic drugs; Z79.899 Other long term (current) drug therapy; Z88.8 Allergy status to other drugs, medicaments and biological substances
CPT/HCPCS: 36415; 71046; 80053; 83880; 84484; 85025; 85379; 93005

== ENCOUNTER 2020-12-17 06:16 | Observation (INO) | payer MEDICAID ==
--- NOTE | 2020-12-17 06:23 | Emergency Department Report ---
ED General Adult HPI - General Chief complaint: Dyspnea/Respdistress Stated complaint: JUDITH PUI?: Yes Time Seen by Provider: 12/17/20 06:21 Source: patient, EMS (Verbal report received from emergency medical services. EMS documentation not available at time of chart dictation ), RN notes reviewed, old records reviewed Mode of arrival: Stretcher Limitations: No Limitations - History of Present Illness Initial comments: The patient was evaluated in the emergency department for symptoms described in the history of present illness. He/she was evaluated in the context of the global COVID-19 pandemic, which necessitated consideration that the patient might be at risk for infection with the virus that causes COVID-19. Institu tional protocols and algorithms that pertain to the evaluation of patients at risk for COVID-19 are in a state of rapid change based on information released by regulatory bodies including the CDC and federal and state organizations. These policies and algorithms were followed during the patient's care in the emergency department. Please note that these policies, procedures and recommendations changed on a rapid basis. During the entire history and physical examination, I had on complete personal protective equipment. Pulmonology: Dr. Davy Newell This is a 60-year-old female. Her past medical history includes morbid obesity, body mass index of 38.7, COPD, diabetes, hypertension, sleep apnea, who reports compliance with nocturnal CPAP. Patient presents to the ER today with a complaint of cough, wheezing, shortness of breath, and clear mucus production associated with chest tightness. This has been going on since the weekend. She denies headache and neck pain, abdominal pain, loss of taste and smell, posterior leg pain and leg swelling, DVT and pulmonary embolism risk factors. She feels like this is consistent with prior COPD exacerbations. The patient states no Covid contacts. Of note, as per cardiology documentation, from 2019, the patient has had extensive previous cardiac ischemic work-up, including a normal cardiac catheterization 2015, negative stress thallium 2019. Cardiology has previously recommended that they felt that the patient's previous chest ti ghtness and respiratory symptoms are unlikely due to ischemic disease and did not recommend further ischemic work-up. The patient typically sleeps on 3 pillows, and denies significant unintentional weight gain. -: Gradual, days(s) Consistency: constant Improves with: rest Worsens with: movement - Related Data Home Medications Medication Instructions Recorded Confirmed Last Taken Albuterol Mdi (or & Nicu Only) 1 puff IH BID 12/17/20 12/17/20 Unknown [ProAir HFA Inhaler] Budesonide/Formoterol Fumarate 10.2 gm IH BID 12/17/20 12/17/20 Unknown [Symbicort 160-4.5 Mcg Inhaler] Diltiazem HCl [Tiazac] 240 mg PO QDAY 12/17/20 12/17/20 Unknown Ergocalciferol [Vitamin D2] 1 cap PO QWEEK 12/17/20 12/17/20 Unknown Losartan [Cozaar] 100 mg PO QDAY 12/17/20 12/17/20 Unknown Metformin HCl [metFORMIN] 1,000 mg PO BID 12/17/20 12/17/20 Unknown Triamterene/Hydrochlorothiazid 1 each PO QDAY 12/17/20 12/17/20 Unknown [Triamterene-Hctz 37.5-25 mg Cp] cloNIDine [Catapres] 0.3 mg PO Q12HR PRN 12/17/20 12/17/20 Unknown Allergies Allergy/AdvReac Type Severity Reaction Status Date / Time acetaminophen [From Percocet] Allergy Unknown Verified 12/17/20 06:55 morphine Allergy Unknown Verified 12/17/20 06:55 oxycodone HCl [From Percocet] Allergy Unknown Verified 12/17/20 06:55 ED Review of Systems ROS: Stated complaint: JUDITH Other details as noted in HPI Constitutional: denies: fever ENT: congestion Respiratory: cough, shortness of breath, wheezing Cardiovascular: dyspnea on exertion, orthopnea, other (Chest tightness) Gastrointestinal: denies: abdominal pain, hematemesis, melena, hematochezia Genitourinary: denies: dysuria Musculoskeletal: denies: back pain Neurological: weakness Hematological/Lymphatic: denies: easy bleeding ED Past Medical Hx - Past Medical History Hx Hypertension: Yes Hx Heart Attack/AMI: No Hx Congestive Heart Failure: Yes Hx Diabetes: Yes Hx GERD: Yes Hx Liver Disease: No Hx Renal Disease: No Hx Seizures: No Hx Asthma: Yes Hx COPD: Yes (chronic bronchitis) Additional medical history: BLOOD TRANSFUSION,anemia,C-PAP. enlarged heart. "spot on right kidney". Obstructive sleep apnea - Surgical History Hx Cholecystectomy: Yes Additional Surgical History: C section x 3, hernia repairs - Social History Smoking Status: Never Smoker Substance Use Type: None - Medications Home Medications: Home Medications Medication Instructions Recorded Confirmed Last Taken Type Albuterol Mdi (or & Nicu Only) 1 puff IH BID 12/17/20 12/17/20 Unknown History [ProAir HFA Inhaler] Budesonide/Formoterol Fumarate 10.2 gm IH BID 12/17/20 12/17/20 Unknown History [Symbicort 160-4.5 Mcg Inhaler] Diltiazem HCl [Tiazac] 240 mg PO QDAY 12/17/20 12/17/20 Unknown History Ergocalciferol [Vitamin D2] 1 cap PO QWEEK 12/17/20 12/17/20 Unknown History Losartan [Cozaar] 100 mg PO QDAY 12/17/20 12/17/20 Unknown History Metformin HCl [metFORMIN] 1,000 mg PO BID 12/17/20 12/17/20 Unknown History Triamterene/Hydrochlorothiazid 1 each PO QDAY 12/17/20 12/17/20 Unknown History [Triamterene-Hctz 37.5-25 mg Cp] cloNIDine [Catapres] 0.3 mg PO Q12HR PRN 12/17/20 12/17/20 Unknown History ED Physical Exam - General Limitations: No Limitations General appearance: alert, in no apparent distress, obese - Head Head exam: Present: atraumatic, normocephalic - Eye Eye exam: Present: normal appearance, EOMI. Absent: nystagmus - ENT ENT exam: Present: normal exam, normal orophraynx, mucous membranes moist, normal external ear exam - Neck Neck exam: Present: normal inspection, full ROM. Absent: tenderness, meningismus - Respiratory Respiratory exam: Present: respiratory distress, wheezes, rhonchi - Cardiovascular Cardiovascular Exam: Present: regular rate, normal rhythm, normal heart sounds. Absent: bradycardia, tachycardia, irregular rhythm, systolic murmur, diastolic murmur, rubs, gallop - GI/Abdominal GI/Abdominal exam: Present: soft. Absent: distended, tenderness, guarding, rebound, rigid, pulsatile mass - Extremities Exam Extremities exam: Present: normal inspection, full ROM, other (2+ pulses noted in the bilateral upper and lower extremities. There is no palpable cord. ne gative Homans sign. Muscular compartments are soft. The pelvis is stable.). Absent: pedal edema, calf tenderness - Back Exam Back exam: Present: normal inspection, full ROM. Absent: tenderness, CVA tenderness (R), CVA tenderness (L), paraspinal tenderness, vertebral tenderness - Neurological Exam Neurological exam: Present: alert, oriented X3, other (No facial droop. Tongue midline. Extraocular movements intact bilaterally. Facial sensation intact to light touch in V1, V2, V3 distribution bilaterally. 5 and a 5 strength in 4 extremities. Sensation intact to light touch in 4 extremities.) - Psychiatric Psychiatric exam: Present: normal affect, normal mood - Skin Skin exam: Present: warm, dry, intact, normal color. Absent: rash ED Course Vital Signs 12/17/20 12/17/20 12/17/20 06:30 07:01 07:15 Temperature 98.3 F Pulse Rate 92 H 98 H 92 H Pulse Rate [ Bilateral] Respiratory 19 22 23 Rate Respiratory Rate [Bilateral ] Blood Pressure 141/73 136/81 Blood Pressure 152/92 [Left] O2 Sat by Pulse 100 96 97 Oximetry 12/17/20 12/17/20 12/17/20 07:27 07:31 08:00 Temperature Pulse Rate 85 Pulse Rate [ 88 Bilateral] Respiratory 15 Rate Respiratory 15 Rate [Bilateral ] Blood Pressure 132/78 Blood Pressure [Left] O2 Sat by Pulse 99 100 Oximetry 12/17/20 12/17/20 08:01 08:31 Temperature Pulse Rate 89 91 H Pulse Rate [ Bilateral] Respiratory 15 28 H Rate Respiratory Rate [Bilateral ] Blood Pressure 137/77 135/74 Blood Pressure [Left] O2 Sat by Pulse 99 100 Oximetry - Reevaluation(s) Reevaluation #1: 12/17/20 07:33 Differential diagnosis, including but not limited to: Pneumonia, bronchitis, COPD exacerbation, congestive heart failure, COVID-19 Assessment and plan: 60-year-old female, who denies DVT and pulmonary embolism risk factors, who is low risk by Wells criteria for pulmonary embolism, with a known history of obesity, sleep apnea, and COPD, presenting with cough, chest tightness, wheezing, mucus production, suspicious for COPD exacerbation. She has not received a COVID-19 vaccination, she denies loss of taste and smell, and Covid exposure. Place patient on isolation, obtain x-ray the chest, EKG, start albuterol, Atrovent, steroids, magnesium, we have requested that nursing team reconcile home medications, reassess after initial data points, and provide trial of ambulation. Unlikely to be acute cardiac ischemia, given recent extensive cardiac work-up and evaluation, EKG morphologically unchanged from prior. Symptoms present for days, therefore, if troponin negative x1 which we expect, as per the [employer] clinical policy, acute myocardial infarction may be ruled out with 1 set of cardiac enzymes. 12/17/20 07:35 12/17/20 10:13 Patient reevaluated. She is still wheezing and symptomatic. On a trial of ambulation, O2 sats stayed at 98%, heart rate increased to 120/130 bpm, and patient is tachypneic to 28 bpm. She does not feel like she is acceptable to be discharged, and requests admission. Given persistent symptomatology and abnormal vital signs, this is reasonable. Hospital physician, Dr. Orona to admit to IMS As a courtesy, we will discussed with her private hand crown pouncer to follow along on the inpatient side of things. - Consultations Consultation #1: 12/17/20 10:17 Have discussed the patient's history, physical, pertinent findings with her primary hand crown pouncer, Dr. Davy Oro, Who agrees with plan of care, and indicates that he or one of his colleagues will follow along consultation ED Medical Decision Making - Lab Data Result diagrams: 12/17/20 08:14 12/17/20 08:14 Vital Signs 12/17/20 12/17/20 12/17/20 06:30 07:01 07:15 Temperature 98.3 F Pulse Rate 92 H 98 H 92 H Pulse Rate [ Bilateral] Respiratory 19 22 23 Rate Respiratory Rate [Bilateral ] Blood Pressure 141/73 136/81 Blood Pressure 152/92 [Left] O2 Sat by Pulse 100 96 97 Oximetry 12/17/20 07:27 Temperature Pulse Rate Pulse Rate [ 88 Bilateral] Respiratory Rate Respiratory 15 Rate [Bilateral ] Blood Pressure Blood Pressure [Left] O2 Sat by Pulse Oximetry - EKG Data -: EKG Interpreted by [place] EKG shows normal: sinus rhythm - EKG Data 12/17/20 07:35 EKG interpreted at 06: 55 Sinus rhythm, 94 bpm. Left axis deviation, borderline left ventricular hypertrophy, [place] interval prolonged, poor R wave progression. This is an abnormal EKG. This is not a STEMI. This is unchanged from prior EKG from 10/19/2020 - Radiology Data Radiology results: pending, report reviewed, image reviewed [facility] [address] [place] [address] XRay Report Signed Patient: BENNETT DAVIDSON MR#: [id number] : 1960 Acct:[id number] Age/Sex: 60 / F ADM Date: 12/17/20 Loc: ED Attending Dr: Zelalem mosley Physician: MACHELLE WYNN MD Date of Service: 12/17/20 Procedure(s): XR chest 1V ap Accession Number(s): [id number] cc: MACHELLE WYNN MD Fluoro Time In Minutes: CHEST 1 VIEW INDICATION: dyspnea. COMPARISON: 10/19/2020 FINDINGS: Support devices: None. Heart: Within normal limits. Lungs/Pleura: No acute air space or interstitial disease. Additional findings: Metallic shrapnel overlying the right upper lobe is again noted. IMPRESSION: No acute findings. Signer Name: Morales Gibson Jr, MD Signed: 12/17/2020 9:03 AM Workstation Name: [id number] Transcribed By: TTR Dictated By: MORALES GIBSON JR, MD Electronically Authenticated By: MORALES GIBSON JR, MD Signed Date/Time: 12/17/20902 DD/ 2 Critical Care Time: Yes Critical care time in (mins) excluding proc time.: 35 Critical care attestation.: If time is entered above; I have spent that time in minutes in the direct care of this critically ill patient, excluding procedure time. ED Disposition Clinical Impression: COPD exacerbation, Suspected 2019 novel coronavirus infection, Sleep apnea, Obesities, morbid Disposition: OP ADMIT IP TO THIS HOSP Is pt being admited?: Yes Does the pt Need Aspirin: No Condition: Good Instructions: Chronic Obstructive Pulmonary Disease (ED) Referrals: PRIMARY CARE, [Primary Care Provider] - 3-5 Days
[2020-12-17] MEDS ORDERED: IPRATROPIUM 0.02% NEBU 2.5 ML IH ONE (06:55)
[2020-12-17] MEDS ORDERED: ALBUTEROL 2.5 MG/3 ML NEBU IH ONE (06:55)
[2020-12-17] MEDS ORDERED: methylPREDNISolone Sod Succinate 125 MG/2 ML INJ IV ONE (06:55)
[2020-12-17] MEDS ORDERED: MAGNESIUM SULFATE 2 GM/50 ML BAG IV ONE (06:56)
[2020-12-17 08:34] LABS: Basophils % (Auto) 0.3 % (0.0-1.8); Eosinophils % (Auto) 0.5 % (0.0-4.3); Hematocrit 38.5 % (30.3-42.9); Hemoglobin 12.9 gm/dl (10.1-14.3); Lymphocytes # (Auto) 1.5 K/mm3 (1.2-5.4); Mean Corpuscular HGB Conc 34 % (30-34); Mean Corpuscular Volume 87 fl (79-97); Monocytes # (Auto) 0.3 K/mm3 (0.0-0.8); Monocytes % (Auto) 6.2 % (0.0-7.3); Platelet Count 213 K/mm3 (140-440); Red Blood Count 4.41 M/mm3 (3.65-5.03); Red Cell Distribution Width 14.9 % (13.2-15.2)
[2020-12-17 08:48] LABS: INR 1.01 (0.87-1.13)
[2020-12-17 08:49] LABS: Partial Thromboplastin Time 27.3 Sec. (24.2-36.6)
[2020-12-17 09:08] LABS: Alanine Aminotransferase 12 units/L (7-56); Albumin 3.9 g/dL (3.9-5); BUN/Creatinine Ratio 18; Blood Urea Nitrogen 16 mg/dL (7-17); Calcium 9.7 mg/dL (8.4-10.2); Hemolysis Index 4
--- NOTE | 2020-12-17 09:08 | XRay Report ---
CHEST 1 VIEW INDICATION: dyspnea. COMPARISON: 10/19/2020 FINDINGS: Support devices: None. Heart: Within normal limits. Lungs/Pleura: No acute air space or interstitial disease. Additional findings: Metallic shrapnel overlying the right upper lobe is again noted. IMPRESSION: No acute findings. Signer Name: Morales Gibson Jr, MD Signed: 12/17/2020 9:03 AM Workstation Name: [id number]
[2020-12-17] MEDS ORDERED: DOXYCYCLINE 100 MG CAP PO ONE (10:12)
--- NOTE | 2020-12-17 10:31 | Electrocardiograph Report ---
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
[2020-12-17] MEDS ORDERED: DEXTROSE 50% IN WATER (25GM) 50 ML SYRINGE IV PRN (11:47)
[2020-12-17] MEDS ORDERED: methylPREDNISolone Sod Suc 60 MG in SODIUM CHLORIDE 0.9% 100 ML IV SCH (12:00)
--- NOTE | 2020-12-17 12:48 | History and Physical Report ---
History of Present Illness Date of admission: 12/17/20 10:15 History of present illness: 60 year old femalie with a medical history of morbid obesity, COPD, DM, HTN, JUANITA on CPAP who presents to the ED with chief complaint of shortness of breath. She states symptoms started about a week ago but subsided and then go worse again. She notes increased cough and chest tightness. Denies any fever. She woke up in the middle of the night with wheezes. She denies headache and neck pain, abdominal pain, loss of taste and smell, posterior leg pain and leg swelling, DVT and pulmonary embolism risk factors. She feels like this is consistent with prior COPD exacerbations. Past History Past Medical History: COPD, diabetes, hypertension, other (JUANITA, SVT) Medications and Allergies Allergies Allergy/AdvReac Type Severity Reaction Status Date / Time acetaminophen [From Percocet] Allergy Unknown Verified 12/17/20 06:55 morphine Allergy Unknown Verified 12/17/20 06:55 oxycodone HCl [From Percocet] Allergy Unknown Verified 12/17/20 06:55 Home Medications Medication Instructions Recorded Confirmed Last Taken Type Albuterol Mdi (or & Nicu Only) 1 puff IH BID 12/17/20 12/17/20 Unknown History [ProAir HFA Inhaler] Budesonide/Formoterol Fumarate 10.2 gm IH BID 12/17/20 12/17/20 Unknown History [Symbicort 160-4.5 Mcg Inhaler] Diltiazem HCl [Tiazac] 240 mg PO QDAY 12/17/20 12/17/20 Unknown History Ergocalciferol [Vitamin D2] 1 cap PO QWEEK 12/17/20 12/17/20 Unknown History Losartan [Cozaar] 100 mg PO QDAY 12/17/20 12/17/20 Unknown History Metformin HCl [metFORMIN] 1,000 mg PO BID 12/17/20 12/17/20 Unknown History Triamterene/Hydrochlorothiazid 1 each PO QDAY 12/17/20 12/17/20 Unknown History [Triamterene-Hctz 37.5-25 mg Cp] cloNIDine [Catapres] 0.3 mg PO Q12HR PRN 12/17/20 12/17/20 Unknown History Active Meds: Active Medications Albuterol (Albuterol 2.5 Mg/3 Ml Nebu) 2.5 mg IH Q4HRT JOSE CRUZ Arformoterol Tartrate (Arformoterol 15 Mcg/2 Ml Nebu) 15 mcg IH Q12HRT JOSE CRUZ Budesonide (Budesonide 0.5 Mg/2 Ml Nebu) 0.5 mg IH Q12HRT JOSE CRUZ Clonidine HCl (Clonidine 0.2 Mg Tab) 0.2 mg PO Q12HR JOSE CRUZ Dextrose (Dextrose 50% In Water (25gm) 50 Ml Syringe) 50 ml IV Q30MIN PRN; Protocol PRN Reason: Hypoglycemia Diltiazem HCl (Diltiazem Cd 240 Mg Cap) 240 mg PO QDAY JOSE CRUZ Insulin Human Lispro (Insulin Lispro 100 Unit/Ml) 0 unit SUB-Q ACHS JOSE CRUZ; Protocol Losartan Potassium (Losartan 50 Mg Tab) 100 mg PO QDAY JOSE CRUZ Methylprednisolone Sodium Succinate (Methylprednisolone Sod Succinate 125 Mg/2 Ml Inj) 60 mg IV Q6HR JOSE CRUZ Review of Systems All systems: negative (some wheezes) Exam - Physical Exam Narrative exam: VITAL SIGNS: Reviewed. GENERAL: Awake HEAD: No signs of head trauma. EYES: Pupils are equal. Extraocular motions intact. MOUTH: Oropharynx is normal. NECK: No adenopathy, no JVD. CHEST: Diminished breath sounds with some wheezes CARDIAC: normal S1 and S2, without murmurs, gallops, or rubs. ABDOMEN: Soft, non tender and non distended. No rebound or guarding, and no masses palpated. Bowel Sounds normal. MUSCULOSKELETAL: No edema NEUROLOGIC EXAM: Alert and oriented x3. No focal neurologic deficits SKIN: No obvious lesions - Constitutional Vitals: Temp Pulse Resp BP Pulse Ox 98.3 F 91 H 28 H 135/74 100 12/17/20 06:30 12/17/20 08:31 12/17/20 08:31 12/17/20 08:31 12/17/20 08:31 HEART Score - HEART Score Troponin: Troponin T < 0.010 ng/mL (0.00-0.029) 12/17/20 08:14 Results - Labs CBC & Chem 7: 12/17/20 08:14 12/17/20 08:14 Labs: Laboratory Last Values WBC 5.3 K/mm3 (4.5-11.0) 12/17/20 08:14 RBC 4.41 M/mm3 (3.65-5.03) 12/17/20 08:14 Hgb 12.9 gm/dl (10.1-14.3) 12/17/20 08:14 Hct 38.5 % (30.3-42.9) 12/17/20 08:14 MCV 87 fl (79-97) 12/17/20 08:14 MCH 29 pg (28-32) 12/17/20 08:14 MCHC 34 % (30-34) 12/17/20 08:14 RDW 14.9 % (13.2-15.2) 12/17/20 08:14 Plt Count 213 K/mm3 (140-440) 12/17/20 08:14 Lymph % (Auto) 28.0 % (13.4-35.0) 12/17/20 08:14 Dunn % (Auto) 6.2 % (0.0-7.3) 12/17/20 08:14 Eos % (Auto) 0.5 % (0.0-4.3) 12/17/20 08:14 Baso % (Auto) 0.3 % (0.0-1.8) 12/17/20 08:14 Lymph # (Auto) 1.5 K/mm3 (1.2-5.4) 12/17/20 08:14 Dunn # (Auto) 0.3 K/mm3 (0.0-0.8) 12/17/20 08:14 Eos # (Auto) 0.0 K/mm3 (0.0-0.4) 12/17/20 08:14 Baso # (Auto) 0.0 K/mm3 (0.0-0.1) 12/17/20 08:14 Seg Neutrophils % 65.0 % (40.0-70.0) 12/17/20 08:14 Seg Neutrophils # 3.4 K/mm3 (1.8-7.7) 12/17/20 08:14 PT 13.2 Sec. (12.2-14.9) 12/17/20 08:14 INR 1.01 (0.87-1.13) 12/17/20 08:14 APTT 27.3 Sec. (24.2-36.6) 12/17/20 08:14 Sodium 138 mmol/L (137-145) 12/17/20 08:14 Potassium 4.0 mmol/L (3.6-5.0) 12/17/20 08:14 Chloride 101.2 mmol/L (98-107) 12/17/20 08:14 Carbon Dioxide 25 mmol/L (22-30) 12/17/20 08:14 Anion Gap 16 mmol/L 12/17/20 08:14 BUN 16 mg/dL (7-17) 12/17/20 08:14 Creatinine 0.9 mg/dL (0.6-1.2) 12/17/20 08:14 Estimated GFR > 60 ml/min 12/17/20 08:14 BUN/Creatinine Ratio 18 % 12/17/20 08:14 Glucose 175 mg/dL (65-100) H 12/17/20 08:14 Calcium 9.7 mg/dL (8.4-10.2) 12/17/20 08:14 Magnesium 2.60 mg/dL (1.7-2.3) H 12/17/20 08:14 Total Bilirubin 0.50 mg/dL (0.1-1.2) 12/17/20 08:14 AST 11 units/L (5-40) 12/17/20 08:14 ALT 12 units/L (7-56) 12/17/20 08:14 Alkaline Phosphatase 98 units/L (35-129) 12/17/20 08:14 Total Creatine Kinase 51 units/L (30-135) 12/17/20 08:14 Troponin T < 0.010 ng/mL (0.00-0.029) 12/17/20 08:14 NT-Pro-B Natriuret Pep 65.82 pg/mL (0-900) 12/17/20 08:14 Total Protein 8.0 g/dL (6.3-8.2) 12/17/20 08:14 Albumin 3.9 g/dL (3.9-5) 12/17/20 08:14 Albumin/Globulin Ratio 1.0 % 12/17/20 08:14 Assessment and Plan Assessment and plan: #COPD exacerbation Currently on room air Solu-Medrol 60 every 6 Bronchodilators Pulmonology evaluation Monitor respiratory status #History of paroxysmal supraventricular tachycardia Continue diltiazem to 40 mg daily #Obstructive sleep apnea CPAP at night #Morbid obesity Diet and exercise #Diabetes mellitus Continue with vomiting Start sliding scale insulin DVT prophylaxis-Heparin
[2020-12-17] MEDS: methylPREDNISolone Sod Succinate 125 MG/2 ML INJ IV SCH ×3 (13:57→23:29)
[2020-12-17] MEDS: cloNIDine 0.2 MG TAB PO SCH ×2 (13:58→21:32)
[2020-12-17] MEDS: dilTIAZem CD 240 MG CAP PO SCH (13:58)
[2020-12-17] MEDS: ARFORMOTEROL 15 MCG/2 ML NEBU IH SCH ×2 (14:26→20:33)
[2020-12-17] MEDS: ALBUTEROL 2.5 MG/3 ML NEBU IH SCH ×3 (14:27→20:33)
[2020-12-17] MEDS: BUDESONIDE 0.5 MG/2 ML NEBU IH SCH ×2 (14:27→20:33)
[2020-12-17] MEDS: INSULIN LISPRO 100 UNIT/ML SUB-Q SCH ×2 (17:11→21:32)
[2020-12-17] MEDS ORDERED: BENZONATATE 100 MG CAP PO PRN (23:45)
[2020-12-18] MEDS: ALBUTEROL 2.5 MG/3 ML NEBU IH SCH ×6 (02:59→19:57)
[2020-12-18] MEDS: methylPREDNISolone Sod Succinate 125 MG/2 ML INJ IV SCH ×3 (06:07→17:50)
[2020-12-18] MEDS: ARFORMOTEROL 15 MCG/2 ML NEBU IH SCH ×2 (07:51→19:57)
[2020-12-18] MEDS: BUDESONIDE 0.5 MG/2 ML NEBU IH SCH ×2 (07:51→19:56)
[2020-12-18] MEDS: INSULIN LISPRO 100 UNIT/ML SUB-Q SCH ×4 (08:16→22:13)
--- NOTE | 2020-12-18 09:07 | Progress Note ---
Assessment and Plan Assessment and plan: #COPD exacerbation Continue oxygen supplementation Continue Solu-Medrol 60 every 6 Bronchodilators Pulmonology evaluation Monitor respiratory status #History of paroxysmal supraventricular tachycardia Continue diltiazem 240 mg daily #Obstructive sleep apnea CPAP at night #Morbid obesity Diet and exercise #Diabetes mellitus Continue sliding scale insulin DVT prophylaxis-Heparin History Interval history: 60 year old female with a medical history of morbid obesity, COPD, DM, HTN, JUANITA on CPAP who presents to the ED with chief complaint of shortness of breath. She states symptoms started about a week ago but subsided and then go worse again. She notes increased cough and chest tightness. Denies any fever. She woke up in the middle of the night with wheezes. She denies headache and neck pain, abdominal pain, loss of taste and smell, posterior leg pain and leg swelling, DVT and pulmonary embolism risk factors. She feels like this is consistent with prior COPD exacerbations. Hospital course 12/18. She had an episode of shortness of breath while she tried to go to the bathroom. She was placed on 2 L of oxygen. She mentions she usually feels same at home. Also has associated heart racing with ambulation. Pulmonology is following. She remains on high-dose steroids. Telemetry shows sinus tach. Continue current home medications for now. Hospitalist Physical - Physical exam Narrative exam: VITAL SIGNS: Reviewed. GENERAL: Awake HEAD: No signs of head trauma. EYES: Pupils are equal. Extraocular motions intact. MOUTH: Oropharynx is normal. NECK: No adenopathy, no JVD. CHEST: Diminished breath sounds with some wheezes CARDIAC: normal S1 and S2, without murmurs, gallops, or rubs. ABDOMEN: Soft, non tender and non distended. No rebound or guarding, and no masses palpated. Bowel Sounds normal. MUSCULOSKELETAL: No edema NEUROLOGIC EXAM: Alert and oriented x3. No focal neurologic deficits SKIN: No obvious lesions - Constitutional Vitals: Temp Pulse Resp BP Pulse Ox 97.8 F 88 22 144/76 99 12/18/20 03:58 12/18/20 07:55 12/18/20 07:55 12/18/20 03:58 12/18/20 07:53 HEART Score - HEART Score Troponin: Troponin T < 0.010 ng/mL (0.00-0.029) 12/17/20 08:14 Results - Labs CBC & Chem 7: 12/17/20 08:14 12/17/20 08:14 Labs: Laboratory Last Values WBC 5.3 K/mm3 (4.5-11.0) 12/17/20 08:14 RBC 4.41 M/mm3 (3.65-5.03) 12/17/20 08:14 Hgb 12.9 gm/dl (10.1-14.3) 12/17/20 08:14 Hct 38.5 % (30.3-42.9) 12/17/20 08:14 MCV 87 fl (79-97) 12/17/20 08:14 MCH 29 pg (28-32) 12/17/20 08:14 MCHC 34 % (30-34) 12/17/20 08:14 RDW 14.9 % (13.2-15.2) 12/17/20 08:14 Plt Count 213 K/mm3 (140-440) 12/17/20 08:14 Lymph % (Auto) 28.0 % (13.4-35.0) 12/17/20 08:14 Mcintosh % (Auto) 6.2 % (0.0-7.3) 12/17/20 08:14 Eos % (Auto) 0.5 % (0.0-4.3) 12/17/20 08:14 Baso % (Auto) 0.3 % (0.0-1.8) 12/17/20 08:14 Lymph # (Auto) 1.5 K/mm3 (1.2-5.4) 12/17/20 08:14 Mcintosh # (Auto) 0.3 K/mm3 (0.0-0.8) 12/17/20 08:14 Eos # (Auto) 0.0 K/mm3 (0.0-0.4) 12/17/20 08:14 Baso # (Auto) 0.0 K/mm3 (0.0-0.1) 12/17/20 08:14 Seg Neutrophils % 65.0 % (40.0-70.0) 12/17/20 08:14 Seg Neutrophils # 3.4 K/mm3 (1.8-7.7) 12/17/20 08:14 PT 13.2 Sec. (12.2-14.9) 12/17/20 08:14 INR 1.01 (0.87-1.13) 12/17/20 08:14 APTT 27.3 Sec. (24.2-36.6) 12/17/20 08:14 Sodium 138 mmol/L (137-145) 12/17/20 08:14 Potassium 4.0 mmol/L (3.6-5.0) 12/17/20 08:14 Chloride 101.2 mmol/L (98-107) 12/17/20 08:14 Carbon Dioxide 25 mmol/L (22-30) 12/17/20 08:14 Anion Gap 16 mmol/L 12/17/20 08:14 BUN 16 mg/dL (7-17) 12/17/20 08:14 Creatinine 0.9 mg/dL (0.6-1.2) 12/17/20 08:14 Estimated GFR > 60 ml/min 12/17/20 08:14 BUN/Creatinine Ratio 18 % 12/17/20 08:14 Glucose 175 mg/dL (65-100) H 12/17/20 08:14 POC Glucose 218 mg/dL (70-105) H 12/17/20 20:56 Calcium 9.7 mg/dL (8.4-10.2) 12/17/20 08:14 Magnesium 2.60 mg/dL (1.7-2.3) H 12/17/20 08:14 Total Bilirubin 0.50 mg/dL (0.1-1.2) 12/17/20 08:14 AST 11 units/L (5-40) 12/17/20 08:14 ALT 12 units/L (7-56) 12/17/20 08:14 Alkaline Phosphatase 98 units/L (35-129) 12/17/20 08:14 Total Creatine Kinase 51 units/L (30-135) 12/17/20 08:14 Troponin T < 0.010 ng/mL (0.00-0.029) 12/17/20 08:14 NT-Pro-B Natriuret Pep 65.82 pg/mL (0-900) 12/17/20 08:14 Total Protein 8.0 g/dL (6.3-8.2) 12/17/20 08:14 Albumin 3.9 g/dL (3.9-5) 12/17/20 08:14 Albumin/Globulin Ratio 1.0 % 12/17/20 08:14 Pandya/IV: Voiding Method Toilet Active Medications - Current Medications Current Medications: Generic Name Dose Route Start Last Admin Trade Name Freq PRN Reason Stop Dose Admin Albuterol 2.5 mg 12/17/20 12:00 12/18/20 07:50 Albuterol 2.5 Mg/3 Ml Nebu IH 2.5 mg Q4HRT JOSE CRUZ Administration Arformoterol Tartrate 15 mcg 12/17/20 12:00 12/18/20 07:51 Arformoterol 15 Mcg/2 Ml Nebu IH 15 mcg Q12HRT JOSE CRUZ Administration Benzonatate 100 mg 12/17/20 23:45 12/18/20 00:00 Benzonatate 100 Mg Cap PO 100 mg Q8H PRN Administration Cough Budesonide 0.5 mg 12/17/20 12:00 12/18/20 07:51 Budesonide 0.5 Mg/2 Ml Nebu IH 0.5 mg Q12HRT JOSE CRUZ Administration Clonidine HCl 0.2 mg 12/17/20 13:00 12/17/20 21:32 Clonidine 0.2 Mg Tab PO 0.2 mg Q12HR JOSE CRUZ Administration Dextrose 50 ml 12/17/20 11:47 Dextrose 50% In Water (25gm) 50 Ml Syringe IV Q30MIN PRN Hypoglycemia Protocol Diltiazem HCl 240 mg 12/17/20 13:00 12/17/20 13:58 Diltiazem Cd 240 Mg Cap PO 240 mg QDAY JOSE CRUZ Administration Guaifenesin 600 mg 12/17/20 23:45 12/18/20 00:00 Guaifenesin Er 600 Mg Tab PO 600 mg BID JOSE CRUZ Administration Insulin Human Lispro 0 unit 12/17/20 16:30 12/18/20 08:16 Insulin Lispro 100 Unit/Ml SUB-Q 4 unit ACHS JOSE CRUZ Administration Protocol Losartan Potassium 100 mg 12/18/20 10:00 Losartan 50 Mg Tab PO QDAY JOSE CRUZ Methylprednisolone Sodium Succinate 60 mg 12/17/20 12:00 12/18/20 06:07 Methylprednisolone Sod Succinate 125 Mg/2 Ml Inj IV 60 mg Q6HR JOSE CRUZ Administration
--- NOTE | 2020-12-18 11:16 | Consultation ---
History of Present Illness Consult date: 12/17/20 Reason for consult: dyspnea, asthma, obstructive sleep apnea History of present illness: This is a 60-year-old female. Her past medical history includes morbid obesity, body mass index of 38.7, COPD, diabetes, hypertension, sleep apnea, who reports compliance with nocturnal CPAP. Patient presents to the ER with a complaint of cough, wheezing, shortness of breath, and clear mucus production associated with chest tightness. This has been going on since the weekend. She denies headache and neck pain, abdominal pain, loss of taste and smell, posterior leg pain and leg swelling, DVT and pulmonary embolism risk factors. She feels like this is consistent with prior COPD exacerbations. Patient has no history of smoking, alcohol, or drug abuse. The patient states no Covid contacts. Patient alert and awake. Resting on 2L O2 with O2 saturation running 100%. Patient afebrile with no leukocytosis. Chest x-ray done on 12/17/20 reports no acute findings. Patient medications include albuterol, brovana, methylprednisone, pulmicort. Past History Past Medical History: COPD, diabetes, hypertension, other (JUANITA, SVT) Medications and Allergies Allergies Allergy/AdvReac Type Severity Reaction Status Date / Time acetaminophen [From Percocet] Allergy Unknown Verified 12/17/20 06:55 morphine Allergy Unknown Verified 12/17/20 06:55 oxycodone HCl [From Percocet] Allergy Unknown Verified 12/17/20 06:55 Home Medications Medication Instructions Recorded Confirmed Last Taken Type Albuterol Mdi (or & Nicu Only) 1 puff IH BID 12/17/20 12/17/20 Unknown History [ProAir HFA Inhaler] Budesonide/Formoterol Fumarate 10.2 gm IH BID 12/17/20 12/17/20 Unknown History [Symbicort 160-4.5 Mcg Inhaler] Diltiazem HCl [Tiazac] 240 mg PO QDAY 12/17/20 12/17/20 Unknown History Ergocalciferol [Vitamin D2] 1 cap PO QWEEK 12/17/20 12/17/20 Unknown History Losartan [Cozaar] 100 mg PO QDAY 12/17/20 12/17/20 Unknown History Metformin HCl [metFORMIN] 1,000 mg PO BID 12/17/20 12/17/20 Unknown History Triamterene/Hydrochlorothiazid 1 each PO QDAY 12/17/20 12/17/20 Unknown History [Triamterene-Hctz 37.5-25 mg Cp] cloNIDine [Catapres] 0.3 mg PO Q12HR PRN 12/17/20 12/17/20 Unknown History Active Meds: Active Medications Albuterol (Albuterol 2.5 Mg/3 Ml Nebu) 2.5 mg IH Q4HRT [facility] Last Admin: 12/17/20 15:05 Dose: Not Given Documented by: Arformoterol Tartrate (Arformoterol 15 Mcg/2 Ml Nebu) 15 mcg IH Q12HRT [facility] Last Admin: 12/17/20 14:26 Dose: 15 mcg Documented by: Budesonide (Budesonide 0.5 Mg/2 Ml Nebu) 0.5 mg IH Q12HRT [facility] Last Admin: 12/17/20 14:27 Dose: 0.5 mg Documented by: Clonidine HCl (Clonidine 0.2 Mg Tab) 0.2 mg PO Q12HR [facility] Last Admin: 12/17/20 13:58 Dose: 0.2 mg Documented by: Dextrose (Dextrose 50% In Water (25gm) 50 Ml Syringe) 50 ml IV Q30MIN PRN; Protocol PRN Reason: Hypoglycemia Diltiazem HCl (Diltiazem Cd 240 Mg Cap) 240 mg PO QDAY [facility] Last Admin: 12/17/20 13:58 Dose: 240 mg Documented by: Insulin Human Lispro (Insulin Lispro 100 Unit/Ml) 0 unit SUB-Q [facility]; Protocol Last Admin: 12/17/20 17:11 Dose: 4 unit Documented by: Losartan Potassium (Losartan 50 Mg Tab) 100 mg PO QDAY [facility] Methylprednisolone Sodium Succinate (Methylprednisolone Sod Succinate 125 Mg/2 Ml Inj) 60 mg IV Q6HR [facility] Last Admin: 12/17/20 13:57 Dose: 60 mg Documented by: Review of Systems All systems: negative Physical Examination Vital signs: Vital Signs Temp Pulse Resp BP Pulse Ox 98.3 F 92 H 19 152/92 100 12/17/20 06:30 12/17/20 06:30 12/17/20 06:30 12/17/20 06:30 12/17/20 06:30 General appearance: no acute distress, alert Eyes: non-icteric ENT: oropharynx moist Neck: supple Effort: normal Ascultation: Bilateral: diminished breath sounds, other (prolonged expiratory phase) Cardiovascular: regular rate and rhythm Gastrointestinal: normoactive bowel sounds, non-distended Integumentary: normal Extremities: no cyanosis Musculoskeletal: no deformities Gait: normal gait, normal posture normal mental status, non-focal exam, pupils equal and round mood appropriate, affect normal Results - Laboratory Findings CBC and BMP: 12/17/20 08:14 12/17/20 08:14 PT/INR, D-dimer PT 13.2 Sec. (12.2-14.9) 12/17/20 08:14 INR 1.01 (0.87-1.13) 12/17/20 08:14 Abnormal lab findings: Abnormal Labs 12/17/20 08:14 Glucose 175 H Magnesium 2.60 H - Diagnostic Findings Chest x-ray: report reviewed, image reviewed Additional studies: CHEST 1 VIEW 12/17/20 INDICATION: dyspnea. COMPARISON: 10/19/2020 FINDINGS: Support devices: None. Heart: Within normal limits. Lungs/Pleura: No acute air space or interstitial disease. Additional findings: Metallic shrapnel overlying the right upper lobe is again noted. IMPRESSION: No acute findings. Assessment and Plan This is a 60-year-old female. Her past medical history includes morbid obesity, body mass index of 38.7, COPD, diabetes, hypertension, sleep apnea, who reports compliance with nocturnal CPAP. Patient presents to the ER with a complaint of cough, wheezing, shortness of breath, and clear mucus production associated with chest tightness. This has been going on since the weekend. She denies headache and neck pain, abdominal pain, loss of taste and smell, posterior leg pain and leg swelling, DVT and pulmonary embolism risk factors. She feels like this is consistent with prior COPD exacerbations. Patient has no history of smoking, alcohol, or drug abuse. The patient states no Covid contacts. Patient alert and awake. Resting on 2L O2 with O2 saturation running 100%. Patient afebrile with no leukocytosis. Chest x-ray done on 12/17/20 reports no acute findings. Patient medications include albuterol, brovana, methylprednisone, pulmicort. - Patient Problems (1) Asthma exacerbation Current Visit: No Status: Acute Plan to address problem: Resting on 2L O2 with O2 saturation running 100%. Patient medications include albuterol, brovana, methylprednisone, pulmicort. (2) Obesities, morbid Current Visit: Yes Status: Acute Plan to address problem: Recommend to lose weight, diet, and exercise. (3) Sleep apnea Current Visit: Yes Status: Acute Plan to address problem: Cpap 8 cm H2O pressure. Recommend to lose weight. Explained sleep hygiene. (4) Suspected 2019 novel coronavirus infection Current Visit: Yes Status: Acute Plan to address problem: Pending test results. (5) Diabetes Current Visit: No Status: Acute Plan to address problem: Management as per primary care. (6) Hypertension Current Visit: No Status: Chronic Qualifiers: Hypertension type: essential hypertension Qualified Code(s): I10 - Essential (primary) hypertension Plan to address problem: Management as per primary care. (7) GERD (gastroesophageal reflux disease) Current Visit: Yes Status: Acute Plan to address problem: Recommend Prilosec.
[2020-12-18] MEDS: guaiFENesin ER 600 MG TAB PO SCH ×3 (11:20→21:38)
[2020-12-18] MEDS: cloNIDine 0.2 MG TAB PO SCH ×2 (11:20→21:52)
[2020-12-18] MEDS: LOSARTAN 50 MG TAB PO SCH (11:21)
[2020-12-18] MEDS: dilTIAZem CD 240 MG CAP PO SCH (11:29)
[2020-12-18] MEDS ORDERED: ENOXAPARIN 40 MG/0.4 ML INJ SUB-Q SCH (22:00)
[2020-12-19] MEDS: methylPREDNISolone Sod Succinate 125 MG/2 ML INJ IV SCH ×3 (00:12→12:22)
[2020-12-19] MEDS: ALBUTEROL 2.5 MG/3 ML NEBU IH SCH ×3 (01:18→14:00)
[2020-12-19] MEDS: BUDESONIDE 0.5 MG/2 ML NEBU IH SCH (08:34)
[2020-12-19] MEDS: ARFORMOTEROL 15 MCG/2 ML NEBU IH SCH (08:34)
--- NOTE | 2020-12-19 09:31 | Progress Note ---
Assessment and Plan This is a 60-year-old female. Her past medical history includes morbid obesity, body mass index of 38.7, COPD, diabetes, hypertension, sleep apnea, who reports compliance with nocturnal CPAP. Patient presents to the ER with a complaint of cough, wheezing, shortness of breath, and clear mucus production associated with chest tightness. This has been going on since the weekend. She denies headache and neck pain, abdominal pain, loss of taste and smell, posterior leg pain and leg swelling, DVT and pulmonary embolism risk factors. She feels like this is consistent with prior COPD exacerbations. Patient has no history of smoking, a lcohol, or drug abuse. The patient states no Covid contacts. Patient alert and awake. Resting on 2L O2 with O2 saturation running 96%. Patient says breathing better than yesterday. ABG on room air ABG pH 7.378 (7.320-7.450) 12/18/20 13:03 POC ABG pCO2 36.7 mmHg (32.0-48.0) 12/18/20 13:03 POC ABG pO2 74.0 mmHg (83-108) L 12/18/20 13:03 POC ABG HCO3 21.1 12/18/20 13:03 ABG O2 Saturation 94.9 (0-100) 12/18/20 13:03 Patient afebrile with no leukocytosis. Chest x-ray done on 12/17/20 reports no acute findings. Patient medications include albuterol, brovana, methylprednisone, pulmicort. CPAP 8 cm H2O pressure during night time. - Patient Problems (1) Asthma exacerbation Current Visit: No Status: Acute Plan to address problem: Resting on 2L O2 with O2 saturation running 96%. Patient medications include albuterol, brovana, methylprednisone, pulmicort. (2) Obesities, morbid Current Visit: Yes Status: Acute Plan to address problem: Recommend to lose weight, diet, and exercise. (3) Sleep apnea Current Visit: Yes Status: Acute Plan to address problem: Cpap 8 cm H2O pressure. Recommend to lose weight. Explained sleep hygiene. (4) Suspected 2019 novel coronavirus infection Current Visit: Yes Status: Acute Plan to address problem: Gaffney virus PCR reported negative. (5) Diabetes Current Visit: No Status: Acute Plan to address problem: Management as per primary care. (6) Hypertension Current Visit: No Status: Chronic Qualifiers: Hypertension type: essential hypertension Qualified Code(s): I10 - Essential (primary) hypertension Plan to address problem: Management as per primary care. (7) GERD (gastroesophageal reflux disease) Current Visit: Yes Status: Acute Plan to address problem: Recommend Prilosec. Subjective Date of service: 12/18/20 Interval history: This is a 60-year-old female. Her past medical history includes morbid obesity, body mass index of 38.7, COPD, diabetes, hypertension, sleep apnea, who reports compliance with nocturnal CPAP. Patient presents to the ER with a complaint of cough, wheezing, shortness of breath, and clear mucus production associated with chest tightness. This has been going on since the weekend. She denies headache and neck pain, abdominal pain, loss of taste and smell, posterior leg pain and leg swelling, DVT and pulmonary embolism risk factors. She feels like this is consistent with prior COPD exacerbations. Patient has no history of smoking, alcohol, or drug abuse. The patient states no Covid contacts. Patient alert and awake. Resting on 2L O2 with O2 saturation running 96%. Patient says breathing better than yesterday. ABG on room air ABG pH 7.378 (7.320-7.450) 12/18/20 13:03 POC ABG pCO2 36.7 mmHg (32.0-48.0) 12/18/20 13:03 POC ABG pO2 74.0 mmHg (83-108) L 12/18/20 13:03 POC ABG HCO3 21.1 12/18/20 13:03 ABG O2 Saturation 94.9 (0-100) 12/18/20 13:03 Patient afebrile with no leukocytosis. Chest x-ray done on 12/17/20 reports no acute findings. Patient medications include albuterol, brovana, methylprednisone, pulmicort. CPAP 8 cm H2O pressure during night time. Objective Vital Signs - 12hr 12/18/20 12/18/20 12/18/20 02:59 03:25 03:58 Temperature 97.8 F Pulse Rate 91 H 93 H Pulse Rate [ 76 Bilateral] Respiratory 16 16 Rate Respiratory 22 Rate [Bilateral ] Blood Pressure 144/72 Blood Pressure 144/76 [Left] O2 Sat by Pulse 98 98 Oximetry 12/18/20 12/18/20 12/18/20 07:53 07:55 10:00 Temperature Pulse Rate Pulse Rate [ 88 Bilateral] Respiratory Rate Respiratory 22 Rate [Bilateral ] Blood Pressure Blood Pressure [Left] O2 Sat by Pulse 99 98 Oximetry 12/18/20 11:11 Temperature 99.4 F Pulse Rate 76 Pulse Rate [ Bilateral] Respiratory 22 Rate Respiratory Rate [Bilateral ] Blood Pressure 157/94 Blood Pressure [Left] O2 Sat by Pulse 100 Oximetry Constitutional: no acute distress, alert Eyes: non-icteric ENT: oropharynx moist Neck: supple Effort: normal Ascultation: Bilateral: diminished breath sounds, other (prolonged expiratory phase) Cardiovascular: regular rate and rhythm Gastrointestinal: normoactive bowel sounds, non-distended Integumentary: normal Extremities: no cyanosis Neurologic: normal mental status, non-focal exam, pupils equal and round Psychiatric: mood appropriate, affect normal CBC and BMP: 12/17/20 08:14 12/17/20 08:14 ABG, PT/INR, D-dimer: ABG ABG pH 7.378 (7.320-7.450) 12/18/20 13:03 POC ABG pCO2 36.7 mmHg (32.0-48.0) 12/18/20 13:03 POC ABG pO2 74.0 mmHg (83-108) L 12/18/20 13:03 POC ABG HCO3 21.1 12/18/20 13:03 ABG O2 Saturation 94.9 (0-100) 12/18/20 13:03 PT/INR, D-dimer PT 13.2 Sec. (12.2-14.9) 12/17/20 08:14 INR 1.01 (0.87-1.13) 12/17/20 08:14 Abnormal lab findings: Abnormal Labs 12/17/20 12/17/20 12/17/20 08:14 16:06 20:56 POC ABG pO2 ABG Glucose Glucose 175 H POC Glucose 229 H 218 H Magnesium 2.60 H Arterial Blood Glucose 12/18/20 13:03 POC ABG pO2 74.0 L ABG Glucose 263 H Glucose POC Glucose Magnesium Arterial Blood Glucose 263 H
--- NOTE | 2020-12-19 09:46 | Discharge Summary ---
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 She states symptoms started about a week ago but subsided and then go worse again. She notes increased cough and chest tightness. Denies any fever. She woke up in the middle of the night with wheezes. She denies headache and neck pain, abdominal pain, loss of taste and smell, posterior leg pain and leg swelling, DVT and pulmonary embolism risk factors. She feels like this is consistent with prior COPD exacerbations. Hospital course 12/18. She had an episode of shortness of breath while she tried to go to the bathroom. She was placed on 2 L of oxygen. She mentions she usually feels same at home. Also has associated heart racing with ambulation. Pulmonology is following. She remains on high-dose steroids. Telemetry shows sinus tach. Continue current home medications for now. 12/19. She feels better. Remains on steroids. She passed a walk test today and she will be discharged on tapering dose of steroids. She will need to follow-up with terra cotta mold maker in the office in a week. Disposition: TO HOME OR SELFCARE Final Discharge Diagnosis (Prints w/discharge instructions): Acute hypoxic respiratory failure secondary to COPD exacerbation Time spent for discharge: 25 minutes Core Measure Documentation - Palliative Care Palliative Care/ Comfort Measures: Not Applicable - Core Measures Any of the following diagnoses?: none Exam - Physical Exam Narrative exam: VITAL SIGNS: Reviewed. GENERAL: Awake HEAD: No signs of head trauma. EYES: Pupils are equal. Extraocular motions intact. MOUTH: Oropharynx is normal. NECK: No adenopathy, no JVD. CHEST: Diminished breath sounds with some wheezes CARDIAC: normal S1 and S2, without murmurs, gallops, or rubs. ABDOMEN: Soft, non tender and non distended. No rebound or guarding, and no masses palpated. Bowel Sounds normal. MUSCULOSKELETAL: No edema NEUROLOGIC EXAM: Alert and oriented x3. No focal neurologic deficits SKIN: No obvious lesions - Constitutional Vitals: Temp Pulse Resp BP Pulse Ox 98.2 F 82 18 152/83 97 12/19/20 05:27 12/19/20 08:00 12/19/20 08:00 12/19/20 05:27 12/19/20 08:35 Plan Diet: low fat, low cholesterol, low salt Additional Instructions: Continue prednisone 40 mg twice a day for 5 days then. 30 mg twice a day for 5 days then. 20 mg twice a day for 5 days then. 20 mg daily for 5 days Follow up with: PRIMARY CARE, [Primary Care Provider] - 3-5 Days SHIKHA KATZ MD [Staff Physician] - 7 Days Prescriptions: predniSONE [Deltasone] 20 mg PO QDAY #40 tab guaiFENesin ER [Mucinex ER] 600 mg PO BID #14 tablet Benzonatate [Tessalon Perles] 100 mg PO Q8H PRN #21 capsule PRN Reason: Cough
[2020-12-19] MEDS ORDERED: hydroCHLOROthiazide 25 MG TAB PO SCH (10:00)
[2020-12-19] MEDS: cloNIDine 0.2 MG TAB PO SCH (10:11)
[2020-12-19] MEDS: guaiFENesin ER 600 MG TAB PO SCH (10:11)
[2020-12-19] MEDS: LOSARTAN 50 MG TAB PO SCH (10:11)
[2020-12-19] MEDS: INSULIN LISPRO 100 UNIT/ML SUB-Q SCH ×2 (10:12→12:23)
[2020-12-19 12:01] VITALS: BP 137/77
[2020-12-19] MEDS: dilTIAZem CD 240 MG CAP PO SCH (12:21)
== END 2020-12-19 15:00 | disposition home or self-care (01) ==
LOC: ED 06:16 → 3A 10:15
PROVIDERS: ADMIT Internal Medicine; ATTEND Internal Medicine
DX: J44.1 Chronic obstructive pulmonary disease with (acute) exacerbation (principal); Z20.822 Contact with and (suspected) exposure to COVID-19; E66.01 Morbid (severe) obesity due to excess calories; G47.33 Obstructive sleep apnea (adult) (pediatric); E11.9 Type 2 diabetes mellitus without complications; I10 Essential (primary) hypertension; I47.1 Supraventricular tachycardia; K21.9 Gastro-esophageal reflux disease without esophagitis; Z79.4 Long term (current) use of insulin; Z98.891 History of uterine scar from previous surgery; Z98.890 Other specified postprocedural states; Z79.899 Other long term (current) drug therapy; Z68.38 Body mass index [BMI] 38.0-38.9, adult
CPT/HCPCS: 36415; 36600; 71045; 80053; 82550; 82805; 82962; 83735; 83880; 84484; 85025; 85610; 85730; 93005; 94640; 94660; 96365; 96372; 96375; 96376; 99291; G0378; J1650; J2930; J3475; U0003; 94644; J1815

== ENCOUNTER 2022-01-14 10:19 | Outpatient (CLI) | payer MEDICAID | END 2022-01-14 10:20 | disposition home or self-care (01) | LOC: LAB 10:19 | PROVIDERS: ATTEND Internal Medicine | DX: J30.9 Allergic rhinitis, unspecified (principal); J45.41 Moderate persistent asthma with (acute) exacerbation | CPT/HCPCS: 36415; 82785 ==

== ENCOUNTER 2022-02-21 14:23 | Emergency (ER) | payer MEDICAID ==
--- NOTE | 2022-02-21 15:27 | Emergency Department Report ---
HPI - General Chief Complaint: Chest Pain PUI?: No Time Seen by Provider: 02/21/22 15:09 - HPI HPI: 61-year-old morbidly obese female with multiple medical comorbidities brought in by EMS for evaluation of chest pain and palpitations. Patient reports she has been having symptoms for the past 2 weeks. She states that on February 10 she saw her creative services director for the same reason. She reports her creative services director is Dr. Eliana Turner. She states that during that evaluation her heart rate "was elevated and she wrote me for diltiazem but I am already on that medicine. I do not know if the new prescription was increased or decreased but when I went to the pharmacy to pick it up, the pharmacist told me that they could not fill it because I ready had been written for diltiazem and that it cannot be filled again until my current prescription runs out." Patient reports she has been taking otherwise taking diltiazem 240 mg by mouth daily. Denies any dizziness or loss of consciousness. She denies tobacco alcohol or illicit drug usage. No recent prolonged immobilization or lengthy travel history. She denies any amphetamine use, or since other stimulant usage. She states that she began feeling her symptoms last night and up until this morning and subsequently called EMS. Pain 0 out of 10. ED Past Medical Hx - Past Medical History Previous Medical History?: Yes Hx Hypertension: Yes Hx Heart Attack/AMI: No Hx Congestive Heart Failure: Yes Hx Diabetes: Yes Hx GERD: Yes Hx Liver Disease: No Hx Renal Disease: No Hx Seizures: No Hx Asthma: Yes Hx COPD: Yes Additional medical history: BLOOD TRANSFUSION,anemia,C-PAP. enlarged heart. "spot on right kidney". Obstructive sleep apnea - Surgical History Hx Cholecystectomy: Yes Additional Surgical History: C section x 3, hernia repairs - Social History Smoking Status: Never Smoker Substance Use Type: None - Medications Home Medications: Home Medications Medication Instructions Recorded Confirmed Last Taken Type Albuterol Mdi (or & Nicu Only) 1 puff IH BID 12/17/20 12/17/20 Unknown History [ProAir HFA Inhaler] Budesonide/Formoterol Fumarate 10.2 gm IH BID 12/17/20 12/17/20 Unknown History [Symbicort 160-4.5 Mcg Inhaler] Diltiazem HCl [Tiazac] 240 mg PO QDAY 12/17/20 12/17/20 Unknown History Ergocalciferol [Vitamin D2] 1 cap PO QWEEK 12/17/20 12/17/20 Unknown History Losartan [Cozaar] 100 mg PO QDAY 12/17/20 12/17/20 Unknown History Metformin HCl [metFORMIN] 1,000 mg PO BID 12/17/20 12/17/20 Unknown History Triamterene/Hydrochlorothiazid 1 each PO QDAY 12/17/20 12/17/20 Unknown History [Triamterene-Hctz 37.5-25 mg Cp] cloNIDine [Catapres] 0.3 mg PO Q12HR PRN 12/17/20 12/17/20 Unknown History Benzonatate [Tessalon Perles] 100 mg PO Q8H PRN #21 capsule 12/19/20 Unknown Rx guaiFENesin ER [Mucinex ER] 600 mg PO BID #14 tablet 12/19/20 Unknown Rx predniSONE [Deltasone] 20 mg PO QDAY #40 tab 12/19/20 Unknown Rx ED Review of Systems ROS: Stated complaint: CHEST PAIN/TACHYCARDIA Other details as noted in HPI Comment: All other systems reviewed and negative Constitutional: no symptoms reported Eyes: denies: eye pain, eye discharge, vision change ENT: denies: as per HPI, ear pain, throat pain, dental pain, hearing loss, epistaxis Respiratory: shortness of breath. denies: see HPI, cough, orthopnea, SOB with exertion, SOB at rest, stridor, wheezing, other Cardiovascular: chest pain, palpitations, other (Patient states "chest tightness") Endocrine: no symptoms reported Gastrointestinal: as per HPI. denies: abdominal pain, nausea, vomiting, bernard rrhea, constipation, hematemesis, melena, hematochezia, other Genitourinary: denies: as per HPI, urgency, dysuria, frequency, hematuria, discharge, abnormal menses, dyspareunia, other Musculoskeletal: denies: as per HPI, back pain, joint swelling, arthralgia Skin: denies: as per HPI, rash, lesions, change in color, change in hair/nails, pruritus Neurological: denies: headache, weakness, numbness, paresthesias, confusion, abnormal gait, vertigo Psychiatric: denies: anxiety, depression, auditory hallucinations, visual hallucinations, homicidal thoughts, suicidal thoughts Hematological/Lymphatic: denies: easy bleeding, easy bruising, swollen glands Physical Exam - Physical Exam Vital Signs: Vital Signs 02/21/22 14:26 Temperature 98.4 F Pulse Rate 100 H Respiratory 16 Rate Blood Pressure 176/100 [Left] O2 Sat by Pulse 98 Oximetry General: Gen: Morbidly obese female, lying in stretcher, speaking in full sentences, mildly anxious appearing, no drooling or stridor no respiratory distress, breathing unlabored, nontoxic-appearing HEENT: Normocephalic atraumatic pupils equally round and reactive to light extraocular muscles intact sclera anicteric Neck: Full range of motion, no midline spinal tenderness palpation, no JVD, no carotid bruits, no nuchal rigidity CVS: S1-S2 regular rate and rhythm with no gallops rubs or murmurs, chest wall nontender Pulmonary: Clear to auscultation bilaterally, no wheezes rales or rhonchi Abdomen: Soft nondistended nontender no guarding or rebound tenderness, no palpable deformities or step-offs, normal active bowel sounds, no hepatosplenomegaly, no pulsatile masses : Deferred Extremities: No cyanosis no clubbing no edema, intact distal peripheral pulses, Integumentary: Skin normal, no petechia no purpura no abscess no lacerations no evidence of trauma no evidence of infection Neuro: Patient is awake alert and oriented to person place time situation, mentating well, cranial nerves II through XII intact, no focal neurodeficits, sensation grossly tact Psych: Calm cooperative, mood affect normal ED Course Vital Signs 02/21/22 14:26 Temperature 98.4 F Pulse Rate 100 H Respiratory 16 Rate Blood Pressure 176/100 [Left] O2 Sat by Pulse 98 Oximetry - Reevaluation(s) Reevaluation #1: 02/21/22 21:45 Patient reevaluated. She continues to endorse that she has no active chest pain shortness of breath difficulty breathing palpitations or any other acute symptoms. Plan will be to discharge to home with outpatient follow-up with her private creative services director. Patient verbalized understanding. ED Medical Decision Making - Lab Data Result diagrams: 02/21/22 15:49 02/21/22 16:19 - EKG Data -: EKG Interpreted by Me EKG shows normal: sinus rhythm Rate: normal - EKG Data When compared to previous EKG there are: no significant change Interpretation: no acute changes 02/21/22 15:42 EKG interpreted by me: Ventricular rate 97 bpm. P waves are present and proceed every QRS complex. Intervals normal except patient has mildly prolonged IN interval measuring [address] segment depressions or elevations. No T wave flattening or inversions. No ectopic. No arrhythmia. Normal axis. Patient is noted to have Q waves in her inferior and anterior leads. She has an old EKG available for comparison dated November - Radiology Data Radiology results: report reviewed - Medical Decision Making This is a 61-year-old morbidly obese female with multiple medical comorbidities who presents for evaluation of chest tightness palpitations and shortness of breath x2 weeks. Vital signs stable. Patient is not tachycardic here. She is observed for several hours and she manifested no evidence of any acute cardiac arrhythmia or dysrhythmia. Serum labs reviewed. Serial cardiac enzymes u nremarkable. Electrolytes unremarkable as well. D-dimer within normal limits. Patient was reassessed multiple times and she denies any active or recurrent symptoms while here in the emergency department Patient given reassurance but advised to follow-up with her creative services director in 1 business day for reassessment and further management. Patient verbalized understanding and verbalized that she feels well and is in agreement with being discharged home. Prior to discharge patient was given strict verbal and written return precautions. Critical care attestation.: If time is entered above; I have spent that time in minutes in the direct care of this critically ill patient, excluding procedure time. ED Disposition Clinical Impression: Chest pain, Palpitations Disposition: 01 HOME / SELF CARE / HOMELESS Is pt being admited?: No Does the pt Need Aspirin: No Condition: Stable Instructions: Nonspecific Chest Pain, Adult, Palpitations, [id number] Additional Instructions: The cause of your symptoms are unclear. Your lab tests as well as your EKG today do not show the cause of what has been causing your symptoms over the past 2 weeks It is very important for you to call your creative services director to schedule an immediate follow-up appointment in 1 business day. Because your symptoms may change, please observe your symptoms very carefully. Return to the nearest emergency department soon as possible if you develop persistent chest pain, shortness of breath, difficulty breathing, palpitations that do not improve, lightheadedness or dizziness, inability to tolerate liquids or solids, or if any other new worrisome symptoms develop
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
[2022-02-21 16:29] LABS: Basophils % (Auto) 0.3 % (0.0-1.8); Eosinophils % (Auto) 0.5 % (0.0-4.3); Hematocrit 36.8 % (30.3-42.9); Hemoglobin 12.1 gm/dl (10.1-14.3); Lymphocytes # (Auto) 1.3 K/mm3 (1.2-5.4); Lymphocytes % (Auto) 24.6 % (13.4-35.0); Mean Corpuscular HGB Conc 33 % (30-34); Mean Corpuscular Volume 89 fl (79-97); Monocytes # (Auto) 0.3 K/mm3 (0.0-0.8); Monocytes % (Auto) 5.5 % (0.0-7.3); Platelet Count 220 K/mm3 (140-440); Red Blood Count 4.16 M/mm3 (3.65-5.03)
[2022-02-21 16:55] LABS: Alanine Aminotransferase 15 units/L (7-56); Albumin 4.1 g/dL (3.9-5); BUN/Creatinine Ratio 20; Blood Urea Nitrogen 20 mg/dL (7-17); Calcium 9.8 mg/dL (8.4-10.2); Hemolysis Index 3
[2022-02-21 19:05] VITALS: BP 133/65
--- NOTE | 2022-02-23 10:00 | Electrocardiograph Report ---
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
== END 2022-02-21 23:00 | disposition home or self-care (01) ==
LOC: ED 14:23
DX: R07.9 Chest pain, unspecified (principal); R00.2 Palpitations; I10 Essential (primary) hypertension; E11.9 Type 2 diabetes mellitus without complications; J45.909 Unspecified asthma, uncomplicated
CPT/HCPCS: 36415; 71045; 80053; 83735; 83880; 84443; 84484; 85025; 85379; 93005; 99284